=== PATIENT | male | born 1955 | race Caucasian/White ===

== ENCOUNTER 2016-10-25 19:08 | Inpatient (IN) | payer OTHER ==
[2016-10-25] MEDS ORDERED: DIPH/PERTUSS(ACELL)/TETANUS VAC/PF 0.5 ML SYR (>=10YO) IM ONE (19:45)
--- NOTE | 2016-10-25 19:45 | ER Document Report ---
ED Medical Screen (RME) - General Stated Complaint: POSSIBLE SPIDER BITE ON LEFT LEG Mode of Arrival: Ambulatory Information source: Patient Notes: 61 y/o F presents to ED c/o open wound, area of redness, and tenderness over the last week. Reports was placed on on course of Bactrim which he states has been taking but but symptoms area worsening. Denies fever. I have greeted and performed a rapid initial assessment of this patient. A comprehensive ED assessment and evaluation of the patient, analysis of test results and completion of the medical decision making process will be conducted by additional ED providers. - Related Data Allergies/Adverse Reactions: No Known Allergies Allergy (Unverified 10/25/16 19:40) Past Medical History - Immunizations Hx Diphtheria, Pertussis, Tetanus Vaccination: Yes Physical Exam - General General appearance: Appears well, Alert In distress: None - Cardiovascular Pulses: Normal: Dorsalis pedis Normal capillary refill: Yes
[2016-10-25 20:34] LABS: ABSOLUTE BASOPHILS # (AUTO) 0.1 10^3/uL (0.0-0.2); ABSOLUTE EOSINOPHILS # (AUTO) 0.2 10^3/uL (0.0-0.6); ABSOLUTE LYMPHOCYTES (AUTO) 2.3 10^3/uL (0.5-4.7); ABSOLUTE MONOCYTES (AUTO) 1.2 10^3/uL (0.1-1.4); ABSOLUTE NEUT (AUTO) 6.7 10^3/uL (1.7-8.2); BASOPHILS % (AUTO) 0.7 % (0-2); EOSINOPHILS % (AUTO) 1.5 % (0-6); HEMATOCRIT 45.9 % (37.9-51.0); HEMOGLOBIN 16.2 g/dL (13.5-17.0); HGB HCT DIFFERENCE 2.7; LYMPHOCYTES % (AUTO) 22.2 % (13-45); MEAN CORPUSCULAR HEMOGLOBIN 31.5 pg (27.0-33.4); MEAN CORPUSCULAR HGB CONC 35.2 g/dL (32.0-36.0); MEAN CORPUSCULAR VOLUME 90 fl (80-97); MONOCYTES % (AUTO) 11.5 % (3-13); RED BLOOD COUNT 5.12 10^6/uL (4.35-5.55); RED CELL DISTRIBUTION WIDTH 12.4 % (11.5-14.0); SEGMENTED NEUTROPHILS % (AUTO) 64.1 % (42-78); WHITE BLOOD COUNT 10.4 10^3/uL (4.0-10.5)
[2016-10-25 20:37] LABS: ALANINE AMINOTRANSFERASE 80 U/L (21-72); ALBUMIN 4.2 g/dL (3.5-5.0); ALKALINE PHOSPHATASE 225 U/L (38-126); ANION GAP 12 (5-19); ASPARTATE AMINO TRANSFERASE 49 U/L (17-59); BLOOD UREA NITROGEN 15 mg/dL (7-20); CARBON DIOXIDE 25 mmol/L (22-30); CHLORIDE 96 mmol/L (98-107); CREATININE RESULT 1.05 mg/dL (0.52-1.25); GLUCOSE 363 mg/dL (75-110); POTASSIUM 4.7 mmol/L (3.6-5.0); SODIUM 133.1 mmol/L (137-145); TOTAL PROTEIN 7.4 g/dL (6.3-8.2)
[2016-10-26] MEDS ORDERED: PIPERACILLIN/TAZOBACTAM 3.375 GM VIAL IV ONE (00:49)
[2016-10-26] MEDS ORDERED: NORMAL SALINE 1000 ML 1,000 ML IV ONE (00:49)
[2016-10-26] MEDS ORDERED: LIDOCAINE 1% INJ-PF (10 MG/ML) 30 ML SDV INJ ONE (00:49)
[2016-10-26] MEDS ORDERED: VANCOMYCIN HCL INJ 1000 MG VIAL IV ONE (00:49)
--- NOTE | 2016-10-26 00:50 | ER Document Report ---
ED Skin Rash/Insect Bite/Abscs - General Mode of Arrival: Ambulatory Information source: Patient TRAVEL OUTSIDE OF THE [place] IN LAST 30 DAYS: No - HPI Patient complains to provider of: Tender/swollen area, Spider bite Onset: Other - 5 days ago Skin Character: Other - see above Quality of rash: Painful <GALLO SUMMERS - Last Filed: 10/26/16 06:49> <CATA CONTRERAS - Last Filed: 10/26/16 08:07> - General Chief Complaint: Insect Bite Stated Complaint: POSSIBLE SPIDER BITE ON LEFT LEG Notes: 61 year old male presents to the ED complaining of an abscess to the left anterior leg that started 5 days ago. Patient states that he might have been bitten by a spider 7 days ago and could be the reason why the abscess is forming. Patient explains that the area surrounding the abscess started getting erythematous 2 days ago and worsened tonight. Patient saw a physician at [facility] 2 days ago who prescribed the patient with septra and mupirocin ointment. The abscess and surrounding erythema have increased in size since then. (GALLO SUMMERS ) - Related Data Allergies/Adverse Reactions: No Known Allergies Allergy (Unverified 10/25/16 19:40) Past Medical History - General Information source: Patient - Social History Smoking Status: Former Smoker Chew tobacco use (# tins/day): No Frequency of alcohol use: Social Drug Abuse: None Family History: Reviewed & Not Pertinent Patient has suicidal ideation: No Patient has homicidal ideation: No - Medical History Medical History: Negative Renal/ Medical History: Denies: Hx Peritoneal Dialysis Surgical Hx: Negative - Immunizations Hx Diphtheria, Pertussis, Tetanus Vaccination: Yes <GALLO SUMMERS - Last Filed: 10/26/16 06:49> Review of Systems - Review of Systems Constitutional: No symptoms reported EENT: No symptoms reported Cardiovascular: No symptoms reported Respiratory: No symptoms reported Gastrointestinal: No symptoms reported Genitourinary: No symptoms reported Male Genitourinary: No symptoms reported Musculoskeletal: No symptoms reported Skin: See HPI, Other - abscess and surrounding erythema to the left anterior leg Hematologic/Lymphatic: No symptoms reported Neurological/Psychological: No symptoms reported -: Yes All other systems reviewed and negative <GALLO SUMMERS - Last Filed: 10/26/16 06:49> Physical Exam - General General appearance: Alert In distress: None - HEENT Head: Normocephalic, Atraumatic Eyes: Normal Extraocular movements intact: Yes Pupils: PERRL Mucous membranes: Dry - Respiratory Respiratory status: No respiratory distress Breath sounds: Normal - Cardiovascular Rhythm: Regular Heart sounds: Normal auscultation - Abdominal Inspection: Normal - Back Back: Normal - Extremities General upper extremity: Normal inspection, Normal ROM General lower extremity: Normal ROM. No: Normal inspection - see skin exam below - Neurological Neuro grossly intact: Yes Cognition: Normal Orientation: AAOx4 Natalia Coma Scale Eye Opening: Spontaneous Natalia Coma Scale Verbal: Oriented Natalia Coma Scale Motor: Obeys Commands Natalia Coma Scale Total: 15 Speech: Normal - Psychological Associated symptoms: Normal affect, Normal mood - Skin Skin Temperature: Warm Skin Moisture: Dry Skin Color: Normal Skin irregularity: Abscess - warm to touch, Erythema - [id number] surrounding erythema Location of irregularity: Extremities - left lower extremity <GALLO SUMMERS - Last Filed: 10/26/16 06:49> Course - Laboratory Result Diagrams: 10/25/16 20:00 10/25/16 20:00 <GALLO SUMMERS - Last Filed: 10/26/16 06:49> - Laboratory Result Diagrams: 10/25/16 20:00 10/25/16 20:00 <CATA CONTRERAS - Last Filed: 10/26/16 08:07> - Re-evaluation Re-evalutation: Patient is a 61-year-old male who states he has no past medical history who presents with cellulitis and abscess to his left lower extremity. Patient was treated with outpatient Bactrim and symptoms worsen. Abscess was drained in the emergency department with packing placed. Patient's started on Zosyn and vancomycin for worsening cellulitis that is failing outpatient treatment. Of note, the patient does appear to have new onset diabetes. He has been given fluids in the emergency department. Discussed with the hospitalist service and will be referred for admission. Patient agrees with plan. Stable time of admission. (CATA CONTRERAS) - Vital Signs Vital signs: Temp Pulse Resp BP Pulse Ox 98.2 F 91 18 128/80 H 97 10/26/16 07:38 10/26/16 07:38 10/26/16 07:38 10/26/16 07:38 10/26/16 07:38 (GALLO SUMMERS) (CATA CONTRERAS) - Laboratory Laboratory results interpreted by me: 10/25/16 10/26/16 10/26/16 20:00 00:43 02:17 Sodium 133.1 L Chloride 96 L Glucose 363 H POC Glucose 345 H 282 H ALT 80 H Alkaline Phosphatase 225 H (GALLO SUMMERS) (CATA CONTRERAS) Procedures - Incision and Drainage Left Leg Type: Simple Anesthetic type: 1% Lidocaine Blade size: 11 I&D procedure: Betadine prep applied, Iodoform packing placed Incision Method: Incision made by scalpel <CATA CONTRERAS - Last Filed: 10/26/16 08:07> Discharge <GALLO SUMMERS - Last Filed: 10/26/16 06:49> - Discharge Admitting Provider: [facility] Unit Admitted: Medical Floor <CATA CONTRERAS - Last Filed: 10/26/16 08:07> - Discharge Clinical Impression: Abscess Cellulitis Qualifiers: Site of cellulitis: extremity Site of cellulitis of extremity: lower extremity Laterality: left Qualified Code(s): L03.116 - Cellulitis of left lower limb Diabetes Qualifiers: Diabetes mellitus type: type 2 Diabetes mellitus complication status: with skin complications Condition: Stable Disposition: ADMITTED INPATIENT Scribe Attestation: 10/26/16 08:06 I personally performed the services described in the documentation, reviewed and edited the documentation which was dictated to the scribe in my presence, and it accurately records my words and actions. (CATA CONTRERAS) Scribe Documentation - Scribe Written by Scribe:: Sivan Miller, 10/26/2016 0340 acting as scribe for :: Alicia <GALLO SUMMERS - Last Filed: 10/26/16 06:49>
[2016-10-26] MEDS ORDERED: ACETAMINOPHEN 325 MG TABLET PO PRN (02:23)
[2016-10-26] MEDS ORDERED: OXYCODONE-ACETAMINOPHEN 5-325 MG TABLET PO PRN (02:23)
[2016-10-26] MEDS ORDERED: MAGNESIUM HYDROXIDE SUSP 30 ML UDCUP PO PRN (02:23)
[2016-10-26] MEDS ORDERED: DEXTROSE 40% GEL 15 GM TUBE PO PRN ×2 (02:23)
[2016-10-26] MEDS ORDERED: DEXTROSE 50%-WATER 25 GM/50 ML DISP.SYRIN IV PRN ×2 (02:23)
[2016-10-26] MEDS ORDERED: GLUCAGON,HUMAN RECOMB 1 MG INJ IM PRN (02:23)
[2016-10-26] MEDS ORDERED: ONDANSETRON HCL INJ/PF 4 MG/2 ML SDV IV PRN (02:23)
[2016-10-26] MEDS ORDERED: KETOROLAC TROMETHAMINE INJ/PF 30 MG/1 ML SDV IV PRN (02:27)
[2016-10-26] MEDS ORDERED: VANCOMYCIN HCL 0 MG in DEXTROSE 5%-WATER 250 ML IV NR (02:30)
[2016-10-26] MEDS ORDERED: NORMAL SALINE 1000 ML 1,000 ML IV SCH (02:30)
[2016-10-26] MEDS ORDERED: AMPICILLIN SODIUM/SULBACTAM NA 3 GM in NORMAL SALINE 100 ML IV SCH (06:00)
--- NOTE | 2016-10-26 06:03 | PDOC H&P ---
History of Present Illness Admission Date/PCP: 10/26/16 02:24 Patient complains of: Left leg pain and swelling History of Present Illness: NATALEE PETERS is a 61 year old male without significant past medical history who' d been in his usual state of health until approximately a week ago noting a small pruritic area of his left leg after scratching it several times the area grew in size and pain prompting him to seek evaluation at urgent care where he was prescribed Bactrim without a loading dose he's taken 3 days without improvement. In the emergency room his found to have a 2 x 2 centimeter abscess 1 cm deep requiring IND and iodoform packing is placed on vancomycin and Zosyn empirically. He is also found to have a blood sugar greater than 300 and referred to the hospitalist for admission. Patient denies previous episode and otherwise feels well Past Medical History Cardiac Medical History: Reports: None Pulmonary Medical History: Reports: None Endocrine Medical History: Reports: None Renal/ Medical History: Reports: None Past Surgical History Past Surgical History: Reports: None Social History Information Source: Patient Lives with: Family Smoking Status: Former Smoker Frequency of Alcohol Use: Rare Hx Recreational Drug Use: No Drugs: None - Advance Directive Resuscitation Status: Full Code Family History Family History: Other - Mother with CK D Parental Family History Reviewed: Yes Children Family History Reviewed: Yes Sibling(s) Family History Reviewed.: Yes Medication/Allergy Home Medications: No Home Medications 10/26/16 Allergies/Adverse Reactions: No Known Allergies Allergy (Unverified 10/25/16 19:40) Review of Systems Constitutional: ABSENT: chills, fever(s), headache(s), weight gain, weight loss Eyes: ABSENT: visual disturbances Ears: ABSENT: hearing changes Cardiovascular: ABSENT: chest pain, dyspnea on exertion, edema, orthropnea, palpitations Respiratory: ABSENT: cough, hemoptysis Gastrointestinal: ABSENT: abdominal pain, constipation, diarrhea, hematemesis, hematochezia, nausea, vomiting Genitourinary: ABSENT: dysuria, hematuria Musculoskeletal: ABSENT: joint swelling Integumentary: ABSENT: rash, wounds Neurological: ABSENT: abnormal gait, abnormal speech, confusion, dizziness, focal weakness, syncope Psychiatric: ABSENT: anxiety, depression, homidical ideation, suicidal ideation Endocrine: PRESENT: polydipsia, polyuria. ABSENT: cold intolerance, heat intolerance Hematologic/Lymphatic: ABSENT: easy bleeding, easy bruising Physical Exam Vital Signs: Temp Pulse Resp BP Pulse Ox 98.2 F 107 H 20 131/80 H 95 10/25/16 19:45 10/25/16 19:45 10/25/16 19:45 10/25/16 19:45 10/25/16 19:45 General appearance: PRESENT: no acute distress, well-developed, well-nourished Head exam: PRESENT: atraumatic, normocephalic Eye exam: PRESENT: conjunctiva pink, EOMI, PERRLA. ABSENT: scleral icterus Ear exam: PRESENT: normal external ear exam Mouth exam: PRESENT: moist, tongue midline Neck exam: ABSENT: carotid bruit, JVD, lymphadenopathy, thyromegaly Respiratory exam: PRESENT: clear to auscultation lena. ABSENT: rales, rhonchi, wheezes Cardiovascular exam: PRESENT: RRR. ABSENT: diastolic murmur, rubs, systolic murmur Pulses: PRESENT: normal dorsalis pedis pul Vascular exam: PRESENT: normal capillary refill GI/Abdominal exam: PRESENT: normal bowel sounds, soft. ABSENT: distended, guarding, mass, organolmegaly, rebound, tenderness Rectal exam: PRESENT: deferred Extremities exam: PRESENT: full ROM. ABSENT: calf tenderness, clubbing, pedal edema Neurological exam: PRESENT: alert, awake, oriented to person, oriented to place , oriented to time, oriented to situation, CN II-XII grossly intact. ABSENT: motor sensory deficit Psychiatric exam: PRESENT: appropriate affect, normal mood. ABSENT: homicidal ideation, suicidal ideation Skin exam: PRESENT: dry, erythema, warm, other - Left leg with a 2 x 2 by 1 cm deep centimeter incision with 10 cm of surrounding erythema no lymphadenopathy. ABSENT: cyanosis, rash Assessment & Plan - Diagnosis (1) Abscess Is this a current diagnosis for this admission?: YesPlan: Complicated by diabetes, failure of outpatient Bactrim and status post IND by the emergency room provider. Continue empiric antibiotics with MRSA coverage following CBC and wound culture (2) Cellulitis Is this a current diagnosis for this admission?: YesPlan: Please see #1 with symptomatic management (3) Diabetes Is this a current diagnosis for this admission?: YesPlan: Newly diagnosed A1c pending diabetic education, metformin 500 Q before meals twice a day and Humalog sliding scale ordered - Time Time Spent: 30 to 50 Minutes
[2016-10-26] MEDS ORDERED: PIPERACILLIN/TAZOBACTAM 4.5 GM VIAL IV ONE (07:00)
[2016-10-26] MEDS: HEPARIN SOD (PORCINE) 5,000 UNIT/ML 1 ML SYRINGE SUBCUT SCH ×3 (07:07→23:13)
[2016-10-26] MEDS: PIPERACILLIN SODIUM/TAZOBACTAM 4.5 GM in NORMAL SALINE 100 ML IV SCH ×3 (07:08→23:07)
[2016-10-26] MEDS: METFORMIN HCL 500 MG TABLET PO SCH ×2 (10:10→15:43)
[2016-10-26] MEDS: DOCUSATE SODIUM 100 MG CAPSULE PO SCH ×2 (10:11→23:07)
[2016-10-26] MEDS: INSULIN LISPRO 100 UNIT/ML 3 ML VIAL SUBCUT PRN ×4 (10:12→23:23)
[2016-10-26] MEDS ORDERED: 1/2 NORMAL SALINE 1,000 ML IV ONE (17:51)
[2016-10-26] MEDS ORDERED: VANCOMYCIN HCL 1,250 MG in DEXTROSE 5%-WATER 250 ML IV SCH (18:00)
--- NOTE | 2016-10-26 19:02 | PDOC PROGRESS REPORT ---
Subjective Progress Note for:: 10/26/16 Subjective:: Reason for visit: Follow-up of abscess and cellulitis Hospital course: Per H&P "NATALEE PETERS is a 61 year old male without significant past medical history who'd been in his usual state of health until approximately a week ago noting a small pruritic area of his left leg after scratching it several times the area grew in size and pain prompting him to seek evaluation at urgent care where he was prescribed Bactrim without a loading dose he's taken 3 days without improvement. In the emergency room his found to have a 2 x 2 centimeter abscess 1 cm deep requiring IND and iodoform packing is placed on vancomycin and Zosyn empirically. He is also found to have a blood sugar greater than 300 and referred to the hospitalist for admission. Patient denies previous episode and otherwise feels well." Subjective:Patient continues to spike fevers to 102.7 and continues to feel terrible. He states persistent pain in the leg from the incision and drainage. He denies chest pain, palpitations, vomiting, diarrhea, swollen glands, sore throat or difficulty swallowing. He does complain of nausea. ROS: per HPI plus a total of 10 systems reviewed, pertinent positives and negatives noted above, remaining systems negative. Physical Exam Vital Signs: Temp Pulse Resp BP Pulse Ox 102.7 F H 124 H 16 131/77 H 95 10/26/16 16:21 10/26/16 16:21 10/26/16 16:21 10/26/16 16:21 10/26/16 16:21 Intake & Output 10/25/16 10/26/16 10/27/16 06:59 06:59 06:59 Intake Total 440 Balance 440 Weight 94.7 kg 94.7 kg EXAM GENERAL: NAD; well developed, well nourished; obese; alert and oriented to person, place, time, situation HEENT: normocephalic, atraumatic; no conjunctival injection, no scleral icterus ; oral mucosa dry; RESPIRATORY: no accessory muscle use, no increased WOB, good air entry bilaterally; no wheezes, rales, rhonchi; no inspiratory crackles CARDIO: no JVD; RRR; no systolic murmur; tachycardia but regular GI: soft, obese; nondistended; normal bowel sounds; no hepato spleno megaly; no rebound, rigidity, guarding; nontender VASCULAR: no carotid bruit; no abdominal bruit; no pallor; 2+ radial, DP pulse ; normal capillary refill EXTREMITIES: no calf tender; no palpable cords in calf; no clubbing, cyanosis ; left leg with 2+ pedal edema PSYCH: normal affect, normal mood SKIN: warm; moist; no petechiae; no telengectasias; no jaundice; medial aspect of the left pre-tibia shows a raised 2 cm abscess with iodoform packing in place and surrounding cellulitis beginning to recede from the demarcation placed by the emergency room physician this morning, he has palpable nontender small lymph nodes in the left inguinal area Results Laboratory Results: Labs reviewed, no leukocytosis, electrolyte relatively unremarkable set from the hyperglycemia, hemoglobin A1c is 11.2 Assessment & Plan - Diagnosis (1) Abscess Is this a current diagnosis for this admission?: YesPlan: Continue Zosyn and vancomycin, if no improvement by morning we'll get MRI of the lower extremity to delineate the depths of the infection. (2) Cellulitis Qualifiers: Site of cellulitis: extremity Site of cellulitis of extremity: lower extremity Laterality: left Qualified Code(s): L03.116 - Cellulitis of left lower limb Is this a current diagnosis for this admission?: YesPlan: As above (3) Diabetes Qualifiers: Diabetes mellitus type: type 2 Diabetes mellitus complication status: with skin complications Is this a current diagnosis for this admission?: YesPlan: New onset. Poorly controlled. Continue sliding scale insulin and diabetic education while here. Will need aggressive diet and lifestyle modifications and outpatient oral regimen to begin with. - Time Time Spent with patient: 25-34 minutes Anticipated discharge: Home Within: within 48 hours
[2016-10-26] MEDS: VANCOMYCIN HCL 1,250 MG in DEXTROSE 5%-WATER 250 ML IV SCH (23:13)
[2016-10-26] MEDS: ZOLPIDEM TARTRATE 5 MG TABLET PO PRN (23:23)
[2016-10-27] MEDS: PIPERACILLIN SODIUM/TAZOBACTAM 4.5 GM in NORMAL SALINE 100 ML IV SCH ×2 (01:08→06:37)
[2016-10-27 05:04] LABS: ABSOLUTE LYMPHOCYTES (AUTO) 0.9 10^3/uL (0.5-4.7); ABSOLUTE MONOCYTES (AUTO) 0.6 10^3/uL (0.1-1.4); ABSOLUTE NEUT (AUTO) 3.5 10^3/uL (1.7-8.2); BASOPHILS % (AUTO) 0.8 % (0-2); EOSINOPHILS % (AUTO) 0.1 % (0-6); HEMATOCRIT 43.9 % (37.9-51.0); HEMOGLOBIN 15.4 g/dL (13.5-17.0); HGB HCT DIFFERENCE 2.3; LYMPHOCYTES % (AUTO) 17.3 % (13-45); MEAN CORPUSCULAR HEMOGLOBIN 30.9 pg (27.0-33.4); MEAN CORPUSCULAR HGB CONC 35.1 g/dL (32.0-36.0); MEAN CORPUSCULAR VOLUME 88 fl (80-97); MONOCYTES % (AUTO) 12.5 % (3-13); RED BLOOD COUNT 4.98 10^6/uL (4.35-5.55); RED CELL DISTRIBUTION WIDTH 12.3 % (11.5-14.0); SEGMENTED NEUTROPHILS % (AUTO) 69.3 % (42-78); WHITE BLOOD COUNT 5.1 10^3/uL (4.0-10.5)
[2016-10-27 05:20] LABS: ANION GAP 10 (5-19); BLOOD UREA NITROGEN 11 mg/dL (7-20); CALCIUM 9.4 mg/dL (8.4-10.2); CARBON DIOXIDE 23 mmol/L (22-30); CHLORIDE 99 mmol/L (98-107); CREATININE RESULT 0.81 mg/dL (0.52-1.25); GLUCOSE 231 mg/dL (75-110); SODIUM 131.9 mmol/L (137-145)
[2016-10-27 05:33] LABS: POTASSIUM 4.1 mmol/L (3.6-5.0)
[2016-10-27] MEDS: HEPARIN SOD (PORCINE) 5,000 UNIT/ML 1 ML SYRINGE SUBCUT SCH ×3 (06:37→22:33)
[2016-10-27] MEDS: INSULIN LISPRO 100 UNIT/ML 3 ML VIAL SUBCUT PRN ×4 (08:40→22:33)
[2016-10-27] MEDS: METFORMIN HCL 500 MG TABLET PO SCH ×2 (08:40→16:01)
[2016-10-27] MEDS: DOCUSATE SODIUM 100 MG CAPSULE PO SCH ×2 (11:18→18:05)
[2016-10-27] MEDS: VANCOMYCIN HCL 1,250 MG in DEXTROSE 5%-WATER 250 ML IV SCH ×2 (11:47→22:33)
--- NOTE | 2016-10-27 15:00 | PDOC PROGRESS REPORT ---
Subjective Progress Note for:: 10/27/16 Subjective:: Reason for visit: Follow-up of abscess and cellulitis Hospital course: Per H&P "NATALEE PETERS is a 61 year old male without significant past medical history who'd been in his usual state of health until approximately a week ago noting a small pruritic area of his left leg after scratching it several times the area grew in size and pain prompting him to seek evaluation at urgent care where he was prescribed Bactrim without a loading dose he's taken 3 days without improvement. In the emergency room his found to have a 2 x 2 centimeter abscess 1 cm deep requiring IND and iodoform packing is placed on vancomycin and Zosyn empirically. He is also found to have a blood sugar greater than 300 and referred to the hospitalist for admission. Patient denies previous episode and otherwise feels well." Patient continued to spike fevers to 102.7 making him feel terrible until finally breaking last night with overall improvement in his condition. initial cultures show Group B Strep though susc's still pending. Subjective:He states persistent pain in the leg from the incision and drainage but improved from yesterday. He denies chest pain, palpitations, vomiting, diarrhea, swollen glands, sore throat or difficulty swallowing. He does complain of nausea. ROS: per HPI plus a total of 10 systems reviewed, pertinent positives and negatives noted above, remaining systems negative. Physical Exam Vital Signs: Temp Pulse Resp BP Pulse Ox 98.5 F 101 H 14 113/83 100 10/27/16 11:53 10/27/16 11:53 10/27/16 11:53 10/27/16 11:53 10/27/16 11:53 Intake & Output 10/26/16 10/27/16 10/28/16 06:59 06:59 06:59 Intake Total 1040 Output Total 450 Balance 590 Weight 94.7 kg 94.7 kg EXAM GENERAL: NAD; well developed, well nourished; obese; alert and oriented to person, place, time, situation HEENT: normocephalic, atraumatic; no conjunctival injection, no scleral icterus ; oral mucosa moist RESPIRATORY: no accessory muscle use, no increased WOB, good air entry bilaterally; no wheezes, rales, rhonchi; no inspiratory crackles CARDIO: no JVD; RRR; no systolic murmur; tachycardia but regular GI: soft, obese; nondistended; normal bowel sounds; no rebound, rigidity, guarding; nontender VASCULAR: no pallor; 2+ radial, DP pulse; normal capillary refill EXTREMITIES: no palpable cords in calf; no clubbing, cyanosis; left leg with 2+ pedal edema PSYCH: normal affect, normal mood SKIN: warm; moist; no petechiae; no telengectasias; no jaundice; medial aspect of the left pre-tibia shows a raised 2 cm abscess with iodoform packing in place and surrounding cellulitis continuing to recede from the demarcation lines placed by the emergency room physician; he no longer has palpable nontender small lymph nodes in the left inguinal area General appearance: PRESENT: no acute distress Results Laboratory Results: 10/27/16 04:29 10/27/16 04:29 10/27/16 10/27/16 04:29 04:29 WBC 5.1 RBC 4.98 Hgb 15.4 Hct 43.9 MCV 88 MCH 30.9 MCHC 35.1 RDW 12.3 Plt Count 214 Seg Neutrophils % 69.3 Lymphocytes % 17.3 Monocytes % 12.5 Eosinophils % 0.1 Basophils % 0.8 Absolute Neutrophils 3.5 Absolute Lymphocytes 0.9 Absolute Monocytes 0.6 Absolute Eosinophils 0.0 Absolute Basophils 0.0 Sodium 131.9 L Potassium 4.1 Chloride 99 Carbon Dioxide 23 Anion Gap 10 BUN 11 Creatinine 0.81 Est GFR ( Amer) > 60 Est GFR (Non-Af Amer) > 60 Glucose 231 H Calcium 9.4 Labs reviewed, CBC remains reassuring Assessment & Plan - Diagnosis (1) Abscess Is this a current diagnosis for this admission?: YesPlan: Overall improved. Change Zosyn to Rocephin and continue vancomycin until final susceptibilities available. (2) Cellulitis Qualifiers: Site of cellulitis: extremity Site of cellulitis of extremity: lower extremity Laterality: left Qualified Code(s): L03.116 - Cellulitis of left lower limb Is this a current diagnosis for this admission?: YesPlan: As above (3) Diabetes Qualifiers: Diabetes mellitus type: type 2 Diabetes mellitus complication status: with skin complications Is this a current diagnosis for this admission?: YesPlan: New onset. Poorly controlled. Continue sliding scale insulin and diabetic education while here. Will need aggressive diet and lifestyle modifications and outpatient oral regimen to begin with. - Time Time Spent with patient: 25-34 minutes Medications reviewed and adjusted accordingly: Yes Anticipated discharge: Home Within: within 24 hours
[2016-10-27] MEDS ORDERED: CEFTRIAXONE 1 GM/D5W RTU 1 GM/50 ML RTUPB IV SCH (18:00)
[2016-10-27] MEDS: ZOLPIDEM TARTRATE 5 MG TABLET PO PRN (22:33)
[2016-10-28] MEDS: HEPARIN SOD (PORCINE) 5,000 UNIT/ML 1 ML SYRINGE SUBCUT SCH (05:29)
[2016-10-28 07:12] LABS: ABSOLUTE BASOPHILS # (AUTO) 0.1 10^3/uL (0.0-0.2); ABSOLUTE EOSINOPHILS # (AUTO) 0.2 10^3/uL (0.0-0.6); ABSOLUTE LYMPHOCYTES (AUTO) 1.3 10^3/uL (0.5-4.7); ABSOLUTE MONOCYTES (AUTO) 1.1 10^3/uL (0.1-1.4); ABSOLUTE NEUT (AUTO) 3.5 10^3/uL (1.7-8.2); BASOPHILS % (AUTO) 1.1 % (0-2); EOSINOPHILS % (AUTO) 2.6 % (0-6); HEMATOCRIT 45.6 % (37.9-51.0); HEMOGLOBIN 15.9 g/dL (13.5-17.0); HGB HCT DIFFERENCE 2.1; LYMPHOCYTES % (AUTO) 21.3 % (13-45); MEAN CORPUSCULAR HEMOGLOBIN 30.9 pg (27.0-33.4); MEAN CORPUSCULAR HGB CONC 34.9 g/dL (32.0-36.0); MEAN CORPUSCULAR VOLUME 89 fl (80-97); MONOCYTES % (AUTO) 17.4 % (3-13); RED BLOOD COUNT 5.15 10^6/uL (4.35-5.55); RED CELL DISTRIBUTION WIDTH 12.5 % (11.5-14.0); SEGMENTED NEUTROPHILS % (AUTO) 57.6 % (42-78)
[2016-10-28] MEDS: METFORMIN HCL 500 MG TABLET PO SCH (09:35)
[2016-10-28] MEDS: DOCUSATE SODIUM 100 MG CAPSULE PO SCH (09:35)
[2016-10-28 10:25] LABS: CREATININE RESULT 0.81 mg/dL (0.52-1.25)
[2016-10-28] MEDS: VANCOMYCIN HCL 1,250 MG in DEXTROSE 5%-WATER 250 ML IV SCH (11:01)
[2016-10-28] MEDS: INSULIN LISPRO 100 UNIT/ML 3 ML VIAL SUBCUT PRN (11:58)
[2016-10-28 15:40] VITALS: BP 124/69
--- NOTE | 2016-10-30 16:23 | PDOC DISCHARGE SUMMARY ---
General - Admit/Disc Date/PCP Admission Date/Primary Care Provider: 10/26/16 02:24 Discharge Date: 10/28/16 - Discharge Diagnosis (1) Abscess Is this a current diagnosis for this admission?: YesSummary: Status post incision and drainage in the emergency department, wound culture showed group B strep. He responded to IV Rocephin and will be sent home on a course of clindamycin for 10 days with outpatient follow-up. He was instructed on wound care including wet-to-dry dressing using a 50-50 mix of peroxide and sterile water for the next 3 days and then just dry dressings daily until closed. (2) Cellulitis Is this a current diagnosis for this admission?: YesSummary: Related to the above, resolved. (3) Diabetes Is this a current diagnosis for this admission?: YesSummary: This is a new diagnosis for the patient with a hemoglobin A1c of greater than 11. He was given diabetic education throughout his hospitalization and sent home with a new glucometer with instructions to check his blood sugars fasting in the morning and a random postprandial. He is started on metformin twice a day and He is to report to his primary care physician for further titration. It may be necessary for him to receive insulin therapy for a short course but he would prefer lifestyle and diet and exercise changes with the use of the metformin before doing so. Signs and symptoms of hypo-and hyperglycemia were described to the patient, he and his both state clear understanding and will report to the emergency department with signs of either. - Additional Information Resuscitation Status: Full Code Discharge Diet: Diabetic Discharge Activity: Activity As Tolerated, Balance Activity w/Rest Home Medications: Calcium Carbonate/Vitamin D3 [Calcium 500-Vit D3 400 Tablet] 1 each PO DAILY Cyanocobalamin (Vitamin B-12) [Vitamin B-12 SL 2500 mcg Tablet] 5,000 mcg SL DAILY 10/26/16 Multivitamin [Multivitamins] 1 each PO DAILY 10/26/16 Acetaminophen [Tylenol 325 mg Tablet] 325 mg PO Q4HP PRN tablet 10/28/16 Clindamycin HCl [Cleocin HCl] 300 mg PO QID #40 capsule 10/28/16 Docusate Sodium [Colace 100 mg Capsule] 100 mg PO BID capsule 10/28/16 Metformin HCl [Glucophage] 850 mg PO BID #60 tablet 10/28/16 History of Present Illness Patient complains of: Pain and swelling in the leg History of Present Illness: NATALEE PETERS is a 61 year old male without significant past medical history who' d been in his usual state of health until approximately a week ago noting a small pruritic area of his left leg after scratching it several times the area grew in size and pain prompting him to seek evaluation at urgent care where he was prescribed Bactrim without a loading dose he's taken 3 days without improvement. Hospital Course Hospital Course: In the emergency room his found to have a 2 x 2 centimeter abscess 1 cm deep requiring IND and iodoform packing is placed on vancomycin and Zosyn empirically. He is also found to have a blood sugar greater than 300 and referred to the hospitalist for admission. Patient denies previous episode and otherwise feels well." Patient continued to spike fevers to 102.7 making him feel terrible until finally breaking last night with overall improvement in his condition. initial cultures show Group B Strep which responded nicely to the Rocephin therapy and he'll be transitioned over to clindamycin and discharged home. Dressing changes should be performed on a daily basis as noted above. He is to follow- up with his primary care provider in one week. Physical Exam Vital Signs: Temp Pulse Resp BP Pulse Ox 98.0 F 95 20 124/69 99 10/28/16 15:36 10/28/16 15:36 10/28/16 15:36 10/28/16 15:36 10/28/16 15:36 EXAM GENERAL: NAD; well developed, well nourished; obese; alert and oriented to person, place, time, situation HEENT: normocephalic, atraumatic; no conjunctival injection, no scleral icterus ; oral mucosa moist RESPIRATORY: no accessory muscle use, no increased WOB, good air entry bilaterally; no wheezes, rales, rhonchi; no inspiratory crackles CARDIO: no JVD; RRR; no systolic murmur; tachycardia but regular GI: soft, obese; nondistended; normal bowel sounds; no rebound, rigidity, guarding; nontender VASCULAR: no pallor; 2+ radial, DP pulse; normal capillary refill EXTREMITIES: no palpable cords in calf; no clubbing, cyanosis; left leg with trace pedal edema PSYCH: normal affect, normal mood SKIN: warm; moist; no petechiae; no telengectasias; no jaundice; medial aspect of the left pre-tibia shows a raised 2 cm abscess with iodoform packing in place and surrounding cellulitis continuing to recede from the demarcation lines placed by the emergency room physician; he no longer has palpable nontender small lymph nodes in the left inguinal area General appearance: PRESENT: no acute distress Results Laboratory Results: 10/28/16 06:30 10/28/16 09:30 10/26/16 03:30 Leg - Left Side Abscess Gram Stain - Final 10/26/16 03:30 Leg - Left Side Abscess Wound Culture - Final Group B Beta Streptococcus No Anaerobic Organisms Qualifiers PATEINT BEING DISCHARGED WITH ANY OF THE FOLLOWING DIAGNOSIS?: No VTE patient discharged on overlapping Therapy?: Yes Plan Discharge Plan: Discharge home with a 10 day course of clindamycin and outpatient wound care with instructions to follow-up with PCP of his choice for additional wound care. Time Spent: Greater than 30 Minutes
== END 2016-10-28 16:26 | disposition home or self-care (01) | DRG 638 ==
LOC: ER 19:08 → EH 10-26 02:24 → 5 10-26 08:10
PROVIDERS: ADMIT Internal Medicine; ATTEND Internal Medicine
PROC: 0H9LXZZ Drainage of Left Lower Leg Skin, External Approach (ICD-10-PCS; principal; 2016-10-26)
DX: E11.628 Type 2 diabetes mellitus with other skin complications (principal); L02.416 Cutaneous abscess of left lower limb; L03.116 Cellulitis of left lower limb; B95.1 Streptococcus, group B, as the cause of diseases classified elsewhere; Z87.891 Personal history of nicotine dependence; Z84.1 Family history of disorders of kidney and ureter; Z79.84 Long term (current) use of oral hypoglycemic drugs
CPT/HCPCS: 36415; 80048; 80053; 80202; 82565; 82962; 83036; 85025; 87040; 87070; 87075; 87077; 87205; 90471; 90715; 96361; 96365; 99284; J0696; J1644; J1815; J2543; J3370; J3490; J7030; J7060

== ENCOUNTER 2016-12-06 14:45 | Inpatient (IN) | payer OTHER ==
[2016-12-06] MEDS ORDERED: DEXTROSE 40% GEL 15 GM TUBE PO PRN (15:45)
[2016-12-06] MEDS ORDERED: GLUCAGON,HUMAN RECOMB 1 MG INJ IM PRN (15:45)
[2016-12-06] MEDS ORDERED: DEXTROSE 40% GEL 15 GM TUBE X 2 PO PRN (15:45)
[2016-12-06] MEDS ORDERED: DEXTROSE 50%-WATER SYRINGE 12.5 GM/25 ML DOSE IV PRN (15:45)
[2016-12-06] MEDS ORDERED: DEXTROSE 50%-WATER SYRINGE 25 GM/50 ML DOSE IV PRN (15:45)
[2016-12-06] MEDS: NORMAL SALINE 1000 ML 1,000 ML IV PRN (16:05)
[2016-12-06 16:25] LABS: ABSOLUTE LYMPHOCYTES (AUTO) 1.3 10^3/uL (0.5-4.7); ABSOLUTE MONOCYTES (AUTO) 2.2 10^3/uL (0.1-1.4); ABSOLUTE NEUT (AUTO) 11.9 10^3/uL (1.7-8.2); BASOPHILS % (AUTO) 0.3 % (0-2); EOSINOPHILS % (AUTO) 0.3 % (0-6); HEMATOCRIT 44.8 % (37.9-51.0); HGB HCT DIFFERENCE 3.2; LYMPHOCYTES % (AUTO) 8.7 % (13-45); MEAN CORPUSCULAR HEMOGLOBIN 31.1 pg (27.0-33.4); MEAN CORPUSCULAR HGB CONC 35.7 g/dL (32.0-36.0); MEAN CORPUSCULAR VOLUME 87 fl (80-97); MONOCYTES % (AUTO) 13.9 % (3-13); RED BLOOD COUNT 5.14 10^6/uL (4.35-5.55); RED CELL DISTRIBUTION WIDTH 12.5 % (11.5-14.0); SEGMENTED NEUTROPHILS % (AUTO) 76.8 % (42-78); WHITE BLOOD COUNT 15.5 10^3/uL (4.0-10.5)
[2016-12-06 16:33] LABS: ALANINE AMINOTRANSFERASE 54 U/L (21-72); ALBUMIN 4.1 g/dL (3.5-5.0); ALKALINE PHOSPHATASE 163 U/L (38-126); ANION GAP 16 (5-19); ASPARTATE AMINO TRANSFERASE 32 U/L (17-59); BILIRUBIN,DIRECT 0.4 mg/dL (0.0-0.4); BILIRUBIN,TOTAL 1.1 mg/dL (0.2-1.3); BLOOD UREA NITROGEN 13 mg/dL (7-20); CALCIUM 9.8 mg/dL (8.4-10.2); CARBON DIOXIDE 24 mmol/L (22-30); CHLORIDE 100 mmol/L (98-107); CREATININE RESULT 0.94 mg/dL (0.52-1.25); GLUCOSE 115 mg/dL (75-110); SODIUM 140.2 mmol/L (137-145); TOTAL PROTEIN 7.5 g/dL (6.3-8.2)
[2016-12-06] MEDS: METRONIDAZOLE 500 MG/NS RTU 100 ML IV SCH ×2 (17:08→23:14)
[2016-12-06] MEDS ORDERED: ENOXAPARIN SODIUM INJ 40 MG/0.4 ML DISP.SYRIN SUBCUT ONE (18:00)
--- NOTE | 2016-12-06 18:51 | PDOC H&P ---
History of Present Illness Admission Date/PCP: 12/06/16 14:45 ROSSY FINK MD Patient complains of: Diarrhea, Nausea, Vomiting History of Present Illness: NATALEE PETERS is a 61 year old male Past Medical History Cardiac Medical History: Reports: Hyperlipidema Pulmonary Medical History: Reports: None EENT Medical History: Reports: Eyes - Legally blind in right eye Neurological Medical History: Reports: None Endocrine Medical History: Reports: Diabetes Mellitus Type 2 Renal/ Medical History: Reports: None Malignancy Medical History: Reports: None GI Medical History: Reports: Diverticulitis, Gastroesophageal Reflux Disease Musculoskeltal Medical History: Reports: Arthritis Skin Medical History: Reports: None Psychiatric Medical History: Denies: Depression Traumatic Medical History: Reports: None Hematology: Reports: None Infectious Medical History: Reports: None Past Surgical History Past Surgical History: Reports: None Social History Information Source: Patient Lives with: Spouse/Significant other Smoking Status: Former Smoker Number of Years Smokin Last Time Smoked: 02/05/2013 Frequency of Alcohol Use: Rare Hx Recreational Drug Use: No Drugs: None Hx Prescription Drug Abuse: No - Advance Directive Resuscitation Status: Full Code Family History Family History: Reviewed & Not Pertinent Parental Family History Reviewed: Yes Children Family History Reviewed: Yes Sibling(s) Family History Reviewed.: Yes Medication/Allergy Home Medications: Calcium Carbonate/Vitamin D3 [Calcium 500-Vit D3 400 Tablet] 1 each PO DAILY Cyanocobalamin (Vitamin B-12) [Vitamin B-12 SL 2500 mcg Tablet] 5,000 mcg SL DAILY 10/26/16 Multivitamin [Multivitamins] 1 each PO DAILY 10/26/16 Acetaminophen [Tylenol 325 mg Tablet] 325 mg PO Q4HP PRN tablet 10/28/16 Clindamycin HCl [Cleocin HCl] 300 mg PO QID #40 capsule 10/28/16 Docusate Sodium [Colace 100 mg Capsule] 100 mg PO BID capsule 10/28/16 Metformin HCl [Glucophage] 850 mg PO BID #60 tablet 10/28/16 Allergies/Adverse Reactions: No Known Allergies Allergy (Unverified 10/25/16 19:40) Review of Systems Constitutional: PRESENT: fatigue, weakness. ABSENT: as per HPI, anorexia, chills, fever(s), headache(s), night sweats, weight gain, weight loss, other Eyes: PRESENT: visual disturbances - legally blind in right eye Ears: PRESENT: hearing changes Nose, Mouth, and Throat: ABSENT: as per HPI, headache(s), mouth pain, sore throat, vertigo, other Cardiovascular: ABSENT: as per HPI, chest pain, dyspnea on exertion, edema, orthropnea, palpitations, other Respiratory: ABSENT: as per HPI, cough, dyspnea, hemoptysis, sputum, other Gastrointestinal: PRESENT: abdominal pain, diarrhea, nausea, vomiting. ABSENT: as per HPI, bloating, coffee ground emesis, constipation, dysphagia, heartburn, hematemesis, hematochezia, melena, other Genitourinary: ABSENT: dysuria, hematuria Musculoskeletal: PRESENT: back pain - with muscle aches Integumentary: ABSENT: rash, wounds Neurological: PRESENT: weakness - generalized and related to his ongoing acute illness. ABSENT: as per HPI, abnormal gait, abnormal movements, abnormal speech , confusion, convulsions, dizziness, focal weakness, frequent falls, lack of coordination, memory loss, numbness, paresthesias, restless legs, syncope, tingling, tremor(s), vertigo, other Psychiatric: ABSENT: anxiety, depression, homidical ideation, suicidal ideation Endocrine: ABSENT: cold intolerance, heat intolerance, polydipsia, polyuria Hematologic/Lymphatic: ABSENT: easy bleeding, easy bruising, lymphadenopathy Physical Exam Vital Signs: Temp Pulse Resp BP Pulse Ox 99.2 F 114 H 116/74 99 12/06/16 15:18 12/06/16 15:18 12/06/16 15:18 12/06/16 15:18 Intake & Output 12/05/16 12/06/16 12/07/16 06:59 06:59 06:59 Intake Total 116 Balance 116 Weight 86.863 kg General appearance: PRESENT: no acute distress, cooperative Head exam: PRESENT: atraumatic, normocephalic Eye exam: PRESENT: conjunctiva pink, EOMI, PERRLA. ABSENT: scleral icterus Ear exam: PRESENT: normal external ear exam Mouth exam: PRESENT: moist, tongue midline Teeth exam: PRESENT: poor dentation Throat exam: ABSENT: post pharyngeal erythema, tonsillar erythema, tonsillar exudate, tonsillogmegaly, other Neck exam: PRESENT: full ROM. ABSENT: carotid bruit, JVD, lymphadenopathy, thyromegaly Respiratory exam: PRESENT: clear to auscultation lena Cardiovascular exam: PRESENT: RRR. ABSENT: diastolic murmur, rubs, systolic murmur Pulses: PRESENT: normal dorsalis pedis pul, +2 pedal pulses bilateral Vascular exam: PRESENT: normal capillary refill GI/Abdominal exam: PRESENT: tenderness - epigastric and LLU regions Rectal exam: PRESENT: deferred Extremities exam: PRESENT: full ROM Musculoskeletal exam: PRESENT: deformity - related to joint involvement with arthritis Neurological exam: PRESENT: alert, awake, oriented to person, oriented to place , oriented to time, oriented to situation, CN II-XII grossly intact. ABSENT: motor sensory deficit Psychiatric exam: PRESENT: appropriate affect, normal mood. ABSENT: homicidal ideation, suicidal ideation Skin exam: PRESENT: dry, intact, warm. ABSENT: cyanosis, rash Results Laboratory Results: 12/06/16 16:13 12/06/16 16:13 12/06/16 12/06/16 12/06/16 16:13 16:13 16:20 WBC 15.5 H RBC 5.14 Hgb 16.0 Hct 44.8 MCV 87 MCH 31.1 MCHC 35.7 RDW 12.5 Plt Count 330 Seg Neutrophils % 76.8 Lymphocytes % 8.7 L Monocytes % 13.9 H Eosinophils % 0.3 Basophils % 0.3 Absolute Neutrophils 11.9 H Absolute Lymphocytes 1.3 Absolute Monocytes 2.2 H Absolute Eosinophils 0.0 Absolute Basophils 0.0 Sodium 140.2 Potassium 4.0 Chloride 100 Carbon Dioxide 24 Anion Gap 16 BUN 13 Creatinine 0.94 Est GFR ( Amer) > 60 Est GFR (Non-Af Amer) > 60 Glucose 115 H Calcium 9.8 Total Bilirubin 1.1 AST 32 ALT 54 Alkaline Phosphatase 163 H Total Protein 7.5 Albumin 4.1 Stool Occult Blood POSITIVE STOOL C. DIFFICILE TOXIN TITER POSITIVE Assessment & Plan - Diagnosis (1) C. difficile enteritis Is this a current diagnosis for this admission?: YesPlan: See admitting physician orders. (2) HLD (hyperlipidemia) Qualifiers: Hyperlipidemia type: pure hypercholesterolemia Qualified Code(s): E78.00 - Pure hypercholesterolemia, unspecified; E78.0 - Pure hypercholesterolemia Is this a current diagnosis for this admission?: YesPlan: See admitting physician orders. (3) Diabetes mellitus type 2 in nonobese Is this a current diagnosis for this admission?: YesPlan: See admitting physician orders. - Time Time Spent: 50 to 70 Minutes Medications reviewed and adjusted accordingly: Yes Anticipated discharge: Home Within: Other - Inpatient Certification Medical Necessity: Need Close Monitoring Due to Risk of Patient Decompensation, Need For IV Fluids, Need For Continuous Telemetry Monitoring, Need for IV Antibiotics, Risk of Complication if Not Cared For in Hospital Post Hospital Care: D/C Steam Drier Tender Documentation - Plan Summary Plan Summary: See admitting physician orders.
[2016-12-06] MEDS ORDERED: VANCOMYCIN HCL INJ 500 MG VIAL PO ONE (19:00)
[2016-12-06 20:54] LABS: APPEARANCE,URINE CLOUDY; BILIRUBIN,URINE NEGATIVE (NEGATIVE); GLUCOSE, URINE NEGATIVE (NEGATIVE); KETONES,URINE TRACE mg/dL (NEGATIVE); LEUKOCYTE ESTERASE,URINE TRACE (NEGATIVE); NITRITE,URINE NEGATIVE (NEGATIVE); PROTEIN,URINE 30 mg/dL (NEGATIVE); URINE SPECIFIC GRAVITY 1.013; UROBILINOGEN,URINE NEGATIVE mg/dL (<2.0)
[2016-12-06] MEDS ORDERED: CIPROFLOXACIN 400 MG/D5W RTU 400 MG/200 ML RTUPB IV SCH (22:00)
[2016-12-06] MEDS ORDERED: ZOLPIDEM TARTRATE 5 MG TABLET PO ONE (23:00)
[2016-12-06] MEDS: VANCOMYCIN HCL INJ 500 MG VIAL PO SCH (23:28)
[2016-12-07] MEDS: VANCOMYCIN HCL INJ 500 MG VIAL PO SCH ×4 (05:05→23:44)
[2016-12-07] MEDS: METRONIDAZOLE 500 MG/NS RTU 100 ML IV SCH ×4 (05:05→23:44)
[2016-12-07 05:06] LABS: ABSOLUTE BASOPHILS # (AUTO) 0.1 10^3/uL (0.0-0.2); ABSOLUTE EOSINOPHILS # (AUTO) 0.2 10^3/uL (0.0-0.6); ABSOLUTE LYMPHOCYTES (AUTO) 1.8 10^3/uL (0.5-4.7); ABSOLUTE MONOCYTES (AUTO) 2.3 10^3/uL (0.1-1.4); ABSOLUTE NEUT (AUTO) 8.8 10^3/uL (1.7-8.2); BASOPHILS % (AUTO) 0.5 % (0-2); EOSINOPHILS % (AUTO) 1.4 % (0-6); HEMOGLOBIN 14.8 g/dL (13.5-17.0); HGB HCT DIFFERENCE 1.4; MEAN CORPUSCULAR HEMOGLOBIN 30.1 pg (27.0-33.4); MEAN CORPUSCULAR HGB CONC 34.5 g/dL (32.0-36.0); MEAN CORPUSCULAR VOLUME 87 fl (80-97); MONOCYTES % (AUTO) 17.2 % (3-13); RED BLOOD COUNT 4.94 10^6/uL (4.35-5.55); RED CELL DISTRIBUTION WIDTH 12.6 % (11.5-14.0); SEGMENTED NEUTROPHILS % (AUTO) 66.9 % (42-78); WHITE BLOOD COUNT 13.2 10^3/uL (4.0-10.5)
[2016-12-07] MEDS: NORMAL SALINE 1000 ML 1,000 ML IV PRN ×2 (05:06→15:59)
[2016-12-07 05:22] LABS: ALANINE AMINOTRANSFERASE 46 U/L (21-72); ALBUMIN 3.5 g/dL (3.5-5.0); ALKALINE PHOSPHATASE 148 U/L (38-126); ANION GAP 13 (5-19); ASPARTATE AMINO TRANSFERASE 25 U/L (17-59); BILIRUBIN,DIRECT 0.2 mg/dL (0.0-0.4); BILIRUBIN,TOTAL 0.9 mg/dL (0.2-1.3); BLOOD UREA NITROGEN 10 mg/dL (7-20); CARBON DIOXIDE 23 mmol/L (22-30); CHLORIDE 104 mmol/L (98-107); GLUCOSE 123 mg/dL (75-110); POTASSIUM 3.2 mmol/L (3.6-5.0); SODIUM 139.8 mmol/L (137-145); TOTAL PROTEIN 6.3 g/dL (6.3-8.2)
[2016-12-07] MEDS: LANSOPRAZOLE 15 MG TAB.RAP.DR PO SCH (07:38)
[2016-12-07] MEDS: ATORVASTATIN CALCIUM 10 MG TABLET PO SCH (07:38)
[2016-12-07] MEDS: POTASSIUM CHLORIDE 10 MEQ TABLET.SA PO SCH ×2 (09:07→13:31)
[2016-12-07] MEDS: ENOXAPARIN SODIUM INJ 40 MG/0.4 ML DISP.SYRIN SUBCUT SCH (09:08)
[2016-12-07] MEDS ORDERED: LANSOPRAZOLE 30 MG TAB.RAP.DR PO SCH (10:00)
[2016-12-07] MEDS: INSULIN LISPRO 100 UNIT/ML 3 ML VIAL SUBCUT PRN (16:01)
--- NOTE | 2016-12-07 18:29 | PDOC PROGRESS REPORT ---
Subjective Progress Note for:: 12/07/16 Subjective:: Patient reported some improvement in his diarrhea volume and consistency. described stool as greenish in color and some degree of formed lump. No nausea, vomiting or significant abdominal cramp pain. Appetite and po intake better at supper today. No chest pain or difficulty with breathing. Physical Exam Vital Signs: Temp Pulse Resp BP Pulse Ox 98.5 F 89 16 116/73 100 12/07/16 03:10 12/07/16 06:36 12/07/16 03:10 12/07/16 03:10 12/07/16 03:10 Intake & Output 12/06/16 12/07/16 12/08/16 06:59 06:59 06:59 Intake Total 1026 Output Total 700 Balance 326 Weight 87.9 kg General appearance: PRESENT: no acute distress, cooperative Head exam: PRESENT: atraumatic, normocephalic Eye exam: PRESENT: conjunctiva pink, EOMI, PERRLA. ABSENT: scleral icterus Mouth exam: PRESENT: moist, tongue midline Neck exam: PRESENT: full ROM. ABSENT: carotid bruit, JVD, lymphadenopathy, thyromegaly Respiratory exam: PRESENT: clear to auscultation lena Cardiovascular exam: PRESENT: RRR. ABSENT: diastolic murmur, rubs, systolic murmur GI/Abdominal exam: PRESENT: normal bowel sounds, soft. ABSENT: distended, guarding, mass, organolmegaly, rebound, tenderness Extremities exam: PRESENT: full ROM Musculoskeletal exam: PRESENT: ambulatory Neurological exam: PRESENT: alert, awake, oriented to person, oriented to place , oriented to time, oriented to situation, CN II-XII grossly intact. ABSENT: motor sensory deficit Psychiatric exam: PRESENT: appropriate affect, normal mood. ABSENT: homicidal ideation, suicidal ideation Skin exam: PRESENT: dry, intact, warm. ABSENT: cyanosis, rash Results Laboratory Results: 12/07/16 04:34 12/07/16 04:34 12/06/16 12/06/16 12/06/16 16:13 16:13 16:20 WBC 15.5 H RBC 5.14 Hgb 16.0 Hct 44.8 MCV 87 MCH 31.1 MCHC 35.7 RDW 12.5 Plt Count 330 Seg Neutrophils % 76.8 Lymphocytes % 8.7 L Monocytes % 13.9 H Eosinophils % 0.3 Basophils % 0.3 Absolute Neutrophils 11.9 H Absolute Lymphocytes 1.3 Absolute Monocytes 2.2 H Absolute Eosinophils 0.0 Absolute Basophils 0.0 Sodium 140.2 Potassium 4.0 Chloride 100 Carbon Dioxide 24 Anion Gap 16 BUN 13 Creatinine 0.94 Est GFR ( Amer) > 60 Est GFR (Non-Af Amer) > 60 Glucose 115 H Calcium 9.8 Total Bilirubin 1.1 AST 32 ALT 54 Alkaline Phosphatase 163 H Total Protein 7.5 Albumin 4.1 Urine Color Urine Appearance Urine pH Ur Specific [place] Urine Protein Urine Glucose (UA) Urine Ketones Urine Blood Urine Nitrite Ur Leukocyte Esterase Urine WBC (Auto) Urine RBC (Auto) Stool Occult Blood POSITIVE 12/06/16 12/07/16 12/07/16 20:27 04:34 04:34 WBC 13.2 H RBC 4.94 Hgb 14.8 Hct 43.0 MCV 87 MCH 30.1 MCHC 34.5 RDW 12.6 Plt Count 283 Seg Neutrophils % 66.9 Lymphocytes % 14.0 Monocytes % 17.2 H Eosinophils % 1.4 Basophils % 0.5 Absolute Neutrophils 8.8 H Absolute Lymphocytes 1.8 Absolute Monocytes 2.3 H Absolute Eosinophils 0.2 Absolute Basophils 0.1 Sodium 139.8 Potassium 3.2 L Chloride 104 Carbon Dioxide 23 Anion Gap 13 BUN 10 Creatinine 0.80 Est GFR ( Amer) > 60 Est GFR (Non-Af Amer) > 60 Glucose 123 H Calcium 9.0 Total Bilirubin 0.9 AST 25 ALT 46 Alkaline Phosphatase 148 H Total Protein 6.3 Albumin 3.5 Urine Color YELLOW Urine Appearance CLOUDY Urine pH 5.0 Ur Specific [place] 1.013 Urine Protein 30 H Urine Glucose (UA) NEGATIVE Urine Ketones TRACE H Urine Blood LARGE H Urine Nitrite NEGATIVE Ur Leukocyte Esterase TRACE H Urine WBC (Auto) 9 Urine RBC (Auto) 4 Stool Occult Blood Assessment & Plan - Diagnosis (1) C. difficile enteritis Is this a current diagnosis for this admission?: YesPlan: See attending physician orders. (2) HLD (hyperlipidemia) Qualifiers: Hyperlipidemia type: pure hypercholesterolemia Qualified Code(s): E78.00 - Pure hypercholesterolemia, unspecified; E78.0 - Pure hypercholesterolemia Is this a current diagnosis for this admission?: YesPlan: See attending physician orders. (3) Diabetes mellitus type 2 in nonobese Is this a current diagnosis for this admission?: YesPlan: See attending physician orders. (4) Urinary tract infection, bacterial Is this a current diagnosis for this admission?: YesPlan: See attending physician orders. - Time Time Spent with patient: 25-34 minutes Medications reviewed and adjusted accordingly: Yes Within: Other - Inpatient Certification Medical Necessity: Need Close Monitoring Due to Risk of Patient Decompensation, Need For IV Fluids, Need for IV Antibiotics, Risk of Complication if Not Cared For in Hospital Post Hospital Care: D/C Food Safety Auditor Documentation - Plan Summary Plan Summary: See attending physician orders.
[2016-12-07] MEDS: LEVOFLOXACIN 500 MG/D5W RTU 500 MG/100 ML RTUPB IV SCH (20:21)
[2016-12-07] MEDS: ZOLPIDEM TARTRATE 5 MG TABLET PO PRN (21:02)
[2016-12-08] MEDS: METRONIDAZOLE 500 MG/NS RTU 100 ML IV SCH ×4 (05:03→23:44)
[2016-12-08] MEDS: VANCOMYCIN HCL INJ 500 MG VIAL PO SCH ×4 (05:03→23:47)
[2016-12-08] MEDS: NORMAL SALINE 1000 ML 1,000 ML IV PRN ×2 (07:41→22:38)
[2016-12-08] MEDS: LANSOPRAZOLE 15 MG TAB.RAP.DR PO SCH (08:08)
[2016-12-08] MEDS: ATORVASTATIN CALCIUM 10 MG TABLET PO SCH (08:08)
--- NOTE | 2016-12-08 08:17 | PDOC PROGRESS REPORT ---
Subjective Progress Note for:: 12/08/16 Subjective:: Patient continue to experience episodes of profuse diarrhea. There is nausea but tolerating oral feeding satisfactorily. No significant abdominal pain or volume. No fever or chills. No chest pain or difficulty with breathing. Physical Exam Vital Signs: Temp Pulse Resp BP Pulse Ox 97.6 F 90 17 117/72 99 12/08/16 07:43 12/08/16 07:43 12/08/16 07:43 12/08/16 07:43 12/08/16 07:43 Intake & Output 12/07/16 12/08/16 12/09/16 06:59 06:59 06:59 Intake Total 1026 3645 Output Total 700 Balance 326 3645 Weight 87.9 kg 88.5 kg Physical Exam: General appearance: PRESENT: no acute distress, cooperative Head exam: PRESENT: atraumatic, normocephalic Eye exam: PRESENT: conjunctiva pink, EOMI, PERRLA. ABSENT: scleral icterus Mouth exam: PRESENT: moist, tongue midline Neck exam: PRESENT: full ROM. ABSENT: carotid bruit, JVD, lymphadenopathy, thyromegaly Respiratory exam: PRESENT: clear to auscultation lena Cardiovascular exam: PRESENT: RRR. ABSENT: diastolic murmur, rubs, systolic murmur GI/Abdominal exam: PRESENT: normal bowel sounds, soft. ABSENT: distended, guarding, mass, organomegaly, rebound, tenderness Extremities exam: PRESENT: full ROM Musculoskeletal exam: PRESENT: ambulatory Neurological exam: PRESENT: alert, awake, oriented to person, oriented to place , oriented to time, oriented to situation, CN II-XII grossly intact. ABSENT: motor sensory deficit Psychiatric exam: PRESENT: appropriate affect, normal mood. ABSENT: homicidal ideation, suicidal ideation Skin exam: PRESENT: dry, intact, warm. ABSENT: cyanosis, rash Results Laboratory Results: 12/07/16 04:34 12/07/16 04:34 12/07/16 04:34 Magnesium 1.5 L Assessment & Plan - Diagnosis (1) C. difficile enteritis Is this a current diagnosis for this admission?: YesPlan: See attending physician orders. Continue oral Vancomycin and IV Metronidazole coverage. (2) HLD (hyperlipidemia) Qualifiers: Hyperlipidemia type: pure hypercholesterolemia Qualified Code(s): E78.00 - Pure hypercholesterolemia, unspecified; E78.0 - Pure hypercholesterolemia Is this a current diagnosis for this admission?: YesPlan: See attending physician orders. (3) Diabetes mellitus type 2 in nonobese Is this a current diagnosis for this admission?: YesPlan: See attending physician orders. (4) Urinary tract infection, bacterial Is this a current diagnosis for this admission?: YesPlan: See attending physician orders. Maintain on IV Levofloxacin coverage and consider d/c after 3rd dose if identified organism is sensitive to Levofloxacin. (5) Hypokalemia due to loss of potassium Is this a current diagnosis for this admission?: YesPlan: Related to diarrhea and electrolyte loss. Patient will continue on oral replacement. (6) Hypomagnesemia Is this a current diagnosis for this admission?: YesPlan: Related to diarrhea and electrolyte loss. Patient will continue on oral replacement. - Time Time Spent with patient: 25-34 minutes Medications reviewed and adjusted accordingly: Yes Anticipated discharge: Home Within: Other - Inpatient Certification Based on my medical assessment, after consideration of the patient's comorbidities, presenting symptoms, or acuity I expect that the services needed warrant INPATIENT care.: Yes I certify that my determination is in accordance with my understanding of Medicare's requirements for reasonable and necessary INPATIENT services [42 CFR 412.3e].: Yes Medical Necessity: Significant Comorbidiites Make Outpatient Treatment Too Risky , Need For IV Fluids, Need For Continuous Telemetry Monitoring, Need for IV Antibiotics, Risk of Complication if Not Cared For in Hospital Post Hospital Care: D/C Powder Core Tester Documentation - Plan Summary Plan Summary: See attending physician orders.
[2016-12-08] MEDS: MAGNESIUM SULFATE/D5W 1 GM/100 ML RTUPB IV SCH ×2 (08:54→10:12)
[2016-12-08 09:30] LABS: ABSOLUTE EOSINOPHILS # (AUTO) 0.2 10^3/uL (0.0-0.6); ABSOLUTE LYMPHOCYTES (AUTO) 1.4 10^3/uL (0.5-4.7); ABSOLUTE MONOCYTES (AUTO) 0.9 10^3/uL (0.1-1.4); ABSOLUTE NEUT (AUTO) 5.8 10^3/uL (1.7-8.2); BASOPHILS % (AUTO) 0.6 % (0-2); EOSINOPHILS % (AUTO) 1.9 % (0-6); HEMATOCRIT 40.6 % (37.9-51.0); HEMOGLOBIN 14.2 g/dL (13.5-17.0); LYMPHOCYTES % (AUTO) 16.5 % (13-45); MEAN CORPUSCULAR HEMOGLOBIN 30.5 pg (27.0-33.4); MEAN CORPUSCULAR VOLUME 87 fl (80-97); MONOCYTES % (AUTO) 11.3 % (3-13); RED BLOOD COUNT 4.65 10^6/uL (4.35-5.55); RED CELL DISTRIBUTION WIDTH 12.6 % (11.5-14.0); SEGMENTED NEUTROPHILS % (AUTO) 69.7 % (42-78); WHITE BLOOD COUNT 8.4 10^3/uL (4.0-10.5)
[2016-12-08 09:58] LABS: ANION GAP 10 (5-19); BLOOD UREA NITROGEN 8 mg/dL (7-20); CALCIUM 9.1 mg/dL (8.4-10.2); CARBON DIOXIDE 24 mmol/L (22-30); CHLORIDE 107 mmol/L (98-107); CREATININE RESULT 0.71 mg/dL (0.52-1.25); GLUCOSE 189 mg/dL (75-110); POTASSIUM 3.6 mmol/L (3.6-5.0); SODIUM 140.5 mmol/L (137-145)
[2016-12-08] MEDS: ENOXAPARIN SODIUM INJ 40 MG/0.4 ML DISP.SYRIN SUBCUT SCH (10:10)
[2016-12-08] MEDS: INSULIN LISPRO 100 UNIT/ML 3 ML VIAL SUBCUT PRN (12:04)
[2016-12-08] MEDS: LEVOFLOXACIN 500 MG/D5W RTU 500 MG/100 ML RTUPB IV SCH (20:31)
[2016-12-08] MEDS: ZOLPIDEM TARTRATE 5 MG TABLET PO PRN (22:39)
[2016-12-09] MEDS: ONDANSETRON HCL INJ/PF 4 MG/2 ML SDV IV PRN ×2 (00:01→19:58)
[2016-12-09] MEDS: METRONIDAZOLE 500 MG/NS RTU 100 ML IV SCH (05:18)
[2016-12-09] MEDS: VANCOMYCIN HCL INJ 500 MG VIAL PO SCH ×3 (05:20→17:43)
[2016-12-09] MEDS: LANSOPRAZOLE 15 MG TAB.RAP.DR PO SCH (07:46)
[2016-12-09] MEDS: ATORVASTATIN CALCIUM 10 MG TABLET PO SCH (07:46)
--- NOTE | 2016-12-09 08:35 | PDOC PROGRESS REPORT ---
Subjective Progress Note for:: 12/09/16 Subjective:: Patient reported improvement in his diarrhea. There was episode of nausea and vomiting since last clinical evaluation that resolved with IV Zofran administration. He remain on IV Metronidazole therapy. No fever or chills. No chest pain or difficulty with breathing. Physical Exam Vital Signs: Temp Pulse Resp BP Pulse Ox 98.0 F 75 16 121/71 98 12/09/16 04:02 12/09/16 07:00 12/09/16 04:02 12/09/16 04:02 12/09/16 04:02 Intake & Output 12/08/16 12/09/16 12/10/16 06:59 06:59 06:59 Intake Total 3645 4072 Balance 3645 4072 Weight 88.5 kg 88.3 kg Physical Exam: General appearance: PRESENT: no acute distress, cooperative Head exam: PRESENT: atraumatic, normocephalic Eye exam: PRESENT: conjunctiva pink, EOMI, PERRLA. ABSENT: scleral icterus Mouth exam: PRESENT: moist, tongue midline Neck exam: PRESENT: full ROM. ABSENT: carotid bruit, JVD, lymphadenopathy, thyromegaly Respiratory exam: PRESENT: clear to auscultation lena Cardiovascular exam: PRESENT: RRR. ABSENT: diastolic murmur, rubs, systolic murmur GI/Abdominal exam: PRESENT: normal bowel sounds, soft. ABSENT: distended, guarding, mass, organomegaly, rebound, tenderness Extremities exam: PRESENT: full ROM Musculoskeletal exam: PRESENT: ambulatory Neurological exam: PRESENT: alert, awake, oriented to person, oriented to place , oriented to time, oriented to situation, CN II-XII grossly intact. ABSENT: motor sensory deficit Psychiatric exam: PRESENT: appropriate affect, normal mood. ABSENT: homicidal ideation, suicidal ideation Skin exam: PRESENT: dry, intact, warm. ABSENT: cyanosis, rash Results Laboratory Results: 12/08/16 09:16 12/08/16 09:16 12/08/16 12/08/16 09:16 09:16 WBC 8.4 RBC 4.65 Hgb 14.2 Hct 40.6 MCV 87 MCH 30.5 MCHC 35.0 RDW 12.6 Plt Count 271 Seg Neutrophils % 69.7 Lymphocytes % 16.5 Monocytes % 11.3 Eosinophils % 1.9 Basophils % 0.6 Absolute Neutrophils 5.8 Absolute Lymphocytes 1.4 Absolute Monocytes 0.9 Absolute Eosinophils 0.2 Absolute Basophils 0.0 Sodium 140.5 Potassium 3.6 Chloride 107 Carbon Dioxide 24 Anion Gap 10 BUN 8 Creatinine 0.71 Est GFR ( Amer) > 60 Est GFR (Non-Af Amer) > 60 Glucose 189 H Calcium 9.1 12/06/16 20:27 Clean Catch Midstream Urine Culture - Final Escherichia Coli 12/06/16 16:20 Stool - Stool - Final 12/06/16 16:20 Stool - Stool Stool Culture - Final NO SALMONELLA, SHIGELLA, CAMPYLOBACTER, OR E.COLI 0157 RECOVERED. NEGATIVE FOR SHIGA TOXINS 1&2. Assessment & Plan - Diagnosis (1) C. difficile enteritis Is this a current diagnosis for this admission?: YesPlan: See attending physician orders. Continue oral Vancomycin and change Metronidazole coverage to oral route. (2) HLD (hyperlipidemia) Qualifiers: Hyperlipidemia type: pure hypercholesterolemia Qualified Code(s): E78.00 - Pure hypercholesterolemia, unspecified; E78.0 - Pure hypercholesterolemia Is this a current diagnosis for this admission?: Yes (3) Diabetes mellitus type 2 in nonobese Is this a current diagnosis for this admission?: YesPlan: See attending physician orders. (4) Urinary tract infection, bacterial Is this a current diagnosis for this admission?: YesPlan: See attending physician orders. Maintain on IV Levofloxacin coverage and consider d/c after 3rd dose if identified organism is sensitive to Levofloxacin. (5) Hypokalemia due to loss of potassium Is this a current diagnosis for this admission?: YesPlan: See attending physician orders. (6) Hypomagnesemia Is this a current diagnosis for this admission?: YesPlan: See attending physician orders. - Time Time Spent with patient: 25-34 minutes Medications reviewed and adjusted accordingly: Yes Anticipated discharge: Home Within: within 24 hours - Inpatient Certification Based on my medical assessment, after consideration of the patient's comorbidities, presenting symptoms, or acuity I expect that the services needed warrant INPATIENT care.: Yes I certify that my determination is in accordance with my understanding of Medicare's requirements for reasonable and necessary INPATIENT services [42 CFR 412.3e].: Yes Medical Necessity: Need Close Monitoring Due to Risk of Patient Decompensation, Need For IV Fluids, Need For Continuous Telemetry Monitoring, Need for IV Antibiotics, Risk of Complication if Not Cared For in Hospital Post Hospital Care: D/C Executive 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
[2016-12-09] MEDS: ENOXAPARIN SODIUM INJ 40 MG/0.4 ML DISP.SYRIN SUBCUT SCH (09:19)
[2016-12-09 10:53] LABS: ANION GAP 12 (5-19); BLOOD UREA NITROGEN 6 mg/dL (7-20); CALCIUM 8.9 mg/dL (8.4-10.2); CARBON DIOXIDE 22 mmol/L (22-30); CHLORIDE 107 mmol/L (98-107); GLUCOSE 148 mg/dL (75-110); MAGNESIUM 1.6 mg/dL (1.6-2.3); POTASSIUM 3.4 mmol/L (3.6-5.0); SODIUM 141.1 mmol/L (137-145)
[2016-12-09] MEDS: INSULIN LISPRO 100 UNIT/ML 3 ML VIAL SUBCUT PRN (12:15)
[2016-12-09] MEDS: METRONIDAZOLE 500 MG TABLET PO SCH ×2 (14:26→22:44)
[2016-12-09] MEDS: LEVOFLOXACIN 500 MG/D5W RTU 500 MG/100 ML RTUPB IV SCH (19:56)
[2016-12-09] MEDS: NORMAL SALINE 1000 ML 1,000 ML IV PRN (19:57)
[2016-12-10] MEDS: VANCOMYCIN HCL INJ 500 MG VIAL PO SCH ×2 (00:38→06:37)
[2016-12-10 04:33] VITALS: BP 123/75
[2016-12-10] MEDS: METRONIDAZOLE 500 MG TABLET PO SCH (06:36)
[2016-12-10] MEDS: ATORVASTATIN CALCIUM 10 MG TABLET PO SCH (08:41)
[2016-12-10] MEDS: LANSOPRAZOLE 15 MG TAB.RAP.DR PO SCH (08:43)
--- NOTE | 2016-12-10 08:44 | PDOC DISCHARGE SUMMARY ---
General - Admit/Disc Date/PCP Admission Date/Primary Care Provider: 12/06/16 14:45 Discharge Date: 12/10/16 - Discharge Diagnosis (1) C. difficile enteritis Is this a current diagnosis for this admission?: Yes (2) HLD (hyperlipidemia) Is this a current diagnosis for this admission?: Yes (3) Diabetes mellitus type 2 in nonobese Is this a current diagnosis for this admission?: Yes (4) Urinary tract infection, bacterial Is this a current diagnosis for this admission?: Yes (5) Hypokalemia due to loss of potassium Is this a current diagnosis for this admission?: Yes (6) Hypomagnesemia Is this a current diagnosis for this admission?: Yes - Additional Information Resuscitation Status: Full Code Discharge Diet: Diabetic Discharge Activity: Activity As Tolerated Home Medications: Metformin HCl [Glucophage] 850 mg PO BID 12/09/16 Multivitamin [Daily Multiple Vitamin] 1 each PO DAILY 12/09/16 Atorvastatin Calcium [Lipitor 10 mg Tablet] 10 mg PO QAM #30 tablet 12/10/16 Metronidazole [Flagyl 500 mg Tablet] 500 mg PO Q8 #21 tablet 12/10/16 Ondansetron [Ondansetron Odt] 4 mg PO Q4HP PRN #30 tab.rapdis 12/10/16 Vancomycin HCl [Vancocin HCl] 125 mg PO Q6 #28 capsule 12/10/16 History of Present Illness Patient complains of: Patient was direct admit from the office after presenting with 3 days of worsening nausea, vomiting and diarrhea. Patient reported that his diarrhea symptom did not really resolved since his recent discharge from the hospital following leg abscess and diagnosis of diabetes mellitus. There was associated lower abdominal crampy pain and significant odor to his watery stool. He described stool as grenish although denied any food with similar color. History of Present Illness: NATALEE PETERS is a 61 year old male Hospital Course Hospital Course: Patient evaluation did revealed positive stool C. difficile toxin titer. His urine culture grew E. Coli. He was treated with IV Metronidazole and oral Vancomycin. His E.coli UTI was treated with IV Levofloxacin over 3 days period. His associated presenting symptoms and Leukocytosis did resolved. Patient has been able to tolerate oral feeding. No more abdominal pain. Diarrhea did resolved with food stool prior to his discharge. Patient will be discharge home today and follow up in the office as instructed upon discharge. Physical Exam Vital Signs: Temp Pulse Resp BP Pulse Ox 97.9 F 79 14 123/75 99 12/10/16 03:30 12/10/16 07:00 12/09/16 23:24 12/10/16 03:30 12/10/16 03:30 Intake & Output 12/09/16 12/10/16 12/11/16 06:59 06:59 06:59 Intake Total 4072 2437 Balance 4072 2437 Weight 88.3 kg 87.6 kg Physical Exam: General appearance: PRESENT: no acute distress, cooperative Head exam: PRESENT: atraumatic, normocephalic Eye exam: PRESENT: conjunctiva pink, EOMI, PERRLA. ABSENT: scleral icterus Mouth exam: PRESENT: moist, tongue midline Neck exam: PRESENT: full ROM. ABSENT: carotid bruit, JVD, lymphadenopathy, thyromegaly Respiratory exam: PRESENT: clear to auscultation lena Cardiovascular exam: PRESENT: RRR. ABSENT: diastolic murmur, rubs, systolic murmur GI/Abdominal exam: PRESENT: normal bowel sounds, soft. ABSENT: distended, guarding, mass, organomegaly, rebound, tenderness Extremities exam: PRESENT: full ROM Musculoskeletal exam: PRESENT: ambulatory Neurological exam: PRESENT: alert, awake, oriented to person, oriented to place , oriented to time, oriented to situation, CN II-XII grossly intact. ABSENT: motor sensory deficit Psychiatric exam: PRESENT: appropriate affect, normal mood. ABSENT: homicidal ideation, suicidal ideation Skin exam: PRESENT: dry, intact, warm. ABSENT: cyanosis, rash Results Laboratory Results: 12/08/16 09:16 12/09/16 10:01 12/09/16 10:01 Sodium 141.1 Potassium 3.4 L Chloride 107 Carbon Dioxide 22 Anion Gap 12 BUN 6 L Creatinine 0.70 Est GFR ( Amer) > 60 Est GFR (Non-Af Amer) > 60 Glucose 148 H Calcium 8.9 Magnesium 1.6 Qualifiers PATEINT BEING DISCHARGED WITH ANY OF THE FOLLOWING DIAGNOSIS?: No Plan Discharge Plan: D/C home today with 7 days of Flagyl and Vancomycin oral therapy. Follow up in the office as instructed. Time Spent: Less than 30 Minutes
[2016-12-10] MEDS ORDERED: POTASSIUM CHLORIDE 10 MEQ TABLET.SA PO SCH (10:00)
== END 2016-12-10 10:20 | disposition home or self-care (01) | DRG 372 ==
LOC: 3W 14:45
PROVIDERS: ADMIT Internal Medicine Geriatric Medicine; ATTEND Internal Medicine Geriatric Medicine
DX: A04.7 Enterocolitis due to Clostridium difficile (principal); N39.0 Urinary tract infection, site not specified; B96.20 Unspecified Escherichia coli [E. coli] as the cause of diseases classified elsewhere; E87.6 Hypokalemia; E83.42 Hypomagnesemia; E11.9 Type 2 diabetes mellitus without complications; E78.5 Hyperlipidemia, unspecified; E78.00 Pure hypercholesterolemia, unspecified; K21.9 Gastro-esophageal reflux disease without esophagitis; M19.90 Unspecified osteoarthritis, unspecified site; H54.41 Blindness, right eye, normal vision left eye; Z79.84 Long term (current) use of oral hypoglycemic drugs; Z79.899 Other long term (current) drug therapy; Z87.891 Personal history of nicotine dependence
CPT/HCPCS: 36415; 80048; 80053; 81001; 82272; 82962; 83735; 85025; 87045; 87086; 87088; 87186; 87205; 87493; J1650; J1815; J1956; J2405; J3370; J3475; J7030

== ENCOUNTER 2017-01-20 11:55 | Inpatient (IN) | payer OTHER ==
[2017-01-20] MEDS ORDERED: NORMAL SALINE 1000 ML 1,000 ML IV PRN (12:29)
[2017-01-20 14:00] LABS: HEMATOCRIT 44.1 % (37.9-51.0); HEMOGLOBIN 14.6 g/dL (13.5-17.0); HGB HCT DIFFERENCE -0.3; MEAN CORPUSCULAR HEMOGLOBIN 29.6 pg (27.0-33.4); MEAN CORPUSCULAR HGB CONC 33.2 g/dL (32.0-36.0); MEAN CORPUSCULAR VOLUME 89 fl (80-97); RED BLOOD COUNT 4.95 10^6/uL (4.35-5.55); RED CELL DISTRIBUTION WIDTH 13.1 % (11.5-14.0); WHITE BLOOD COUNT 29.8 10^3/uL (4.0-10.5)
[2017-01-20 14:06] LABS: ALANINE AMINOTRANSFERASE 111 U/L (21-72); ALBUMIN 4.2 g/dL (3.5-5.0); ALKALINE PHOSPHATASE 136 U/L (38-126); ANION GAP 13 (5-19); ASPARTATE AMINO TRANSFERASE 81 U/L (17-59); BILIRUBIN,DIRECT 0.5 mg/dL (0.0-0.4); BILIRUBIN,TOTAL 1.4 mg/dL (0.2-1.3); BLOOD UREA NITROGEN 13 mg/dL (7-20); CARBON DIOXIDE 24 mmol/L (22-30); CHLORIDE 102 mmol/L (98-107); CREATININE RESULT 0.96 mg/dL (0.52-1.25); GLUCOSE 134 mg/dL (75-110); POTASSIUM 3.3 mmol/L (3.6-5.0); SODIUM 139.1 mmol/L (137-145); TOTAL PROTEIN 7.4 g/dL (6.3-8.2)
[2017-01-20 14:48] LABS: BAND NEUTROPHILS % (MANUAL) 2 % (3-5); BASOPHILS % (MANUAL) 0 % (0-2); EOSINOPHILS % (MANUAL) 1 % (0-6); LYMPHOCYTES % (MANUAL) 6 % (13-45); TOTAL CELLS COUNTED 100
[2017-01-20 14:49] LABS: RBC MORPHOLOGY COMMENT NORMO-CYTIC/CHROMIC; TOXIC GRANULATION SLIGHT; TOXIC VACUOLATION PRESENT
[2017-01-20 15:31] LABS: APPEARANCE,URINE SLIGHTLY-CLOUDY; BILIRUBIN,URINE NEGATIVE (NEGATIVE); GLUCOSE, URINE NEGATIVE (NEGATIVE); KETONES,URINE NEGATIVE (NEGATIVE); LEUKOCYTE ESTERASE,URINE NEGATIVE (NEGATIVE); NITRITE,URINE NEGATIVE (NEGATIVE); PROTEIN,URINE 100 mg/dL (NEGATIVE); URINE SPECIFIC GRAVITY 1.013; UROBILINOGEN,URINE NEGATIVE mg/dL (<2.0)
[2017-01-20] MEDS ORDERED: VANCOMYCIN HCL INJ 500 MG VIAL PO SCH (18:00)
[2017-01-20] MEDS ORDERED: VANCOMYCIN HCL INJ 500 MG VIAL IV SCH (18:00)
[2017-01-20] MEDS: METRONIDAZOLE 500 MG/NS RTU 100 ML IV SCH ×2 (18:30→23:29)
[2017-01-20] MEDS: METFORMIN HCL 850 MG TABLET PO SCH (18:30)
--- NOTE | 2017-01-20 19:21 | PDOC H&P ---
History of Present Illness Admission Date/PCP: 01/20/17 11:55 ROSSY ALEKS Patient complains of: Nausea, vomiting, diarrhea and abdominal pain History of Present Illness: NATALEE PETERS is a 61 year old male known to my practice who presented to the office earlier today with acutely ill with listed complaints. Patient reported that he is feeling as he did when he was recently diagnosed with Clostridium difficile toxin colitis. He reported onset since yesterday. He localized pain to upper and mid lower abdominal region. He described pain as cramping. There is associated loss of appetite. Denied consumption of any unusual food or fluid. There is associated chills, fatigue, and generalized weakness. Patient reported associated rectal pain and burning sensation related to frequent bowel movement. His initial evaluation in the office revealed epigastric tenderness and significant leukocytosis. In view of these findings, he was advised hospitalization. Past Medical History Cardiac Medical History: Reports: Hyperlipidema Endocrine Medical History: Reports: Diabetes Mellitus Type 2 GI Medical History: Reports: Diverticulitis, Gastroesophageal Reflux Disease Musculoskeltal Medical History: Reports: Arthritis Psychiatric Medical History: Denies: Depression Social History Smoking Status: Former Smoker Cigarettes Packs Per Day: 2 Cigars Per Day: 40 Last Time Smoked: 2012 Frequency of Alcohol Use: Occasional Hx Recreational Drug Use: No Drugs: None Hx Prescription Drug Abuse: No - Advance Directive Resuscitation Status: Full Code Family History Family History: Reviewed & Not Pertinent Parental Family History Reviewed: Yes Children Family History Reviewed: Yes Sibling(s) Family History Reviewed.: Yes Medication/Allergy Home Medications: Atorvastatin Calcium [Lipitor 10 mg Tablet] 10 mg PO QAM 01/20/17 Metformin HCl [Glucophage] 850 mg PO BID 01/20/17 Multivitamin [Daily Multiple Vitamin] 1 tab PO DAILY 01/20/17 Allergies/Adverse Reactions: No Known Allergies Allergy (Unverified 10/25/16 19:40) Physical Exam Vital Signs: Temp Pulse Resp BP Pulse Ox 98.3 F 101 H 20 104/76 99 01/20/17 17:05 01/20/17 17:05 01/20/17 17:05 01/20/17 17:05 01/20/17 17:05 Intake & Output 01/19/17 01/20/17 01/21/17 06:59 06:59 06:59 Intake Total 240 Output Total 500 Balance -260 Weight 87.6 kg General appearance: PRESENT: no acute distress, well-developed, well-nourished Head exam: PRESENT: atraumatic, normocephalic Eye exam: PRESENT: conjunctiva pink, EOMI, PERRLA. ABSENT: scleral icterus Ear exam: PRESENT: normal external ear exam Mouth exam: PRESENT: moist, tongue midline Neck exam: PRESENT: full ROM. ABSENT: carotid bruit, JVD, lymphadenopathy, thyromegaly Cardiovascular exam: PRESENT: RRR. ABSENT: diastolic murmur, rubs, systolic murmur Pulses: PRESENT: normal dorsalis pedis pul, +2 pedal pulses bilateral Vascular exam: PRESENT: normal capillary refill GI/Abdominal exam: PRESENT: normal bowel sounds, soft, tenderness - epigastric region. ABSENT: ascites, distended, guarding, mass, Rawls's sign, organolmegaly, rebound Rectal exam: PRESENT: deferred Neurological exam: PRESENT: alert, awake, oriented to person, oriented to place , oriented to time, oriented to situation, CN II-XII grossly intact. ABSENT: motor sensory deficit Psychiatric exam: PRESENT: appropriate affect, normal mood. ABSENT: homicidal ideation, suicidal ideation Skin exam: PRESENT: dry, intact, warm. ABSENT: cyanosis, rash Results Laboratory Results: 01/20/17 13:33 01/20/17 13:33 01/20/17 01/20/17 01/20/17 12:22 13:33 13:33 WBC 29.8 H RBC 4.95 Hgb 14.6 Hct 44.1 MCV 89 MCH 29.6 MCHC 33.2 RDW 13.1 Plt Count 296 Seg Neutrophils % Not Reportable Lymphocytes % Not Reportable Monocytes % Not Reportable Eosinophils % Not Reportable Basophils % Not Reportable Absolute Neutrophils Not Reportable Absolute Lymphocytes Not Reportable Absolute Monocytes Not Reportable Absolute Eosinophils Not Reportable Absolute Basophils Not Reportable Sodium 139.1 Potassium 3.3 L Chloride 102 Carbon Dioxide 24 Anion Gap 13 BUN 13 Creatinine 0.96 Est GFR ( Amer) > 60 Est GFR (Non-Af Amer) > 60 Glucose 134 H Calcium 10.0 Magnesium 1.6 Total Bilirubin 1.4 H AST 81 H ALT 111 H Alkaline Phosphatase 136 H Total Protein 7.4 Albumin 4.2 Urine Color Urine Appearance Urine pH Ur Specific [place] Urine Protein Urine Glucose (UA) Urine Ketones Urine Blood Urine Nitrite Ur Leukocyte Esterase Urine WBC (Auto) Urine RBC (Auto) Stool Occult Blood 01/20/17 01/20/17 15:10 15:10 WBC RBC Hgb Hct MCV MCH MCHC RDW Plt Count Seg Neutrophils % Lymphocytes % Monocytes % Eosinophils % Basophils % Absolute Neutrophils Absolute Lymphocytes Absolute Monocytes Absolute Eosinophils Absolute Basophils Sodium Potassium Chloride Carbon Dioxide Anion Gap BUN Creatinine Est GFR ( Amer) Est GFR (Non-Af Amer) Glucose Calcium Magnesium Total Bilirubin AST ALT Alkaline Phosphatase Total Protein Albumin Urine Color YELLOW Urine Appearance SLIGHTLY-CLOUDY Urine pH 5.0 Ur Specific [place] 1.013 Urine Protein 100 H Urine Glucose (UA) NEGATIVE Urine Ketones NEGATIVE Urine Blood LARGE H Urine Nitrite NEGATIVE Ur Leukocyte Esterase NEGATIVE Urine WBC (Auto) 6 Urine RBC (Auto) 2 Stool Occult Blood POSITIVE Assessment & Plan - Diagnosis (1) C. difficile enteritis Is this a current diagnosis for this admission?: YesPlan: See admitting attending orders. (2) Diabetes mellitus type 2 in nonobese Is this a current diagnosis for this admission?: YesPlan: See admitting attending orders. (3) HLD (hyperlipidemia) Qualifiers: Hyperlipidemia type: pure hypercholesterolemia Qualified Code(s): E78.00 - Pure hypercholesterolemia, unspecified; E78.0 - Pure hypercholesterolemia Is this a current diagnosis for this admission?: YesPlan: See admitting attending orders. (4) Hypokalemia due to loss of potassium Is this a current diagnosis for this admission?: YesPlan: See admitting attending orders. (5) Hypomagnesemia Is this a current diagnosis for this admission?: YesPlan: See admitting attending orders. 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
[2017-01-20] MEDS ORDERED: MAGNESIUM SULFATE/D5W 1 GM/100 ML RTUPB IV ONE (19:30)
[2017-01-20] MEDS ORDERED: PANTOPRAZOLE SODIUM 40 MG VIAL IV SCH (22:00)
[2017-01-20] MEDS ORDERED: CIPROFLOXACIN 400 MG/D5W RTU 400 MG/200 ML RTUPB IV SCH (22:00)
[2017-01-20] MEDS: POTASSIUM CHLORIDE 10 MEQ TABLET.SA PO SCH (23:28)
[2017-01-21] MEDS: VANCOMYCIN HCL INJ 500 MG VIAL PO SCH ×4 (00:47→19:33)
[2017-01-21] MEDS: POTASSIUM CHLORIDE 10 MEQ TABLET.SA PO SCH ×2 (03:28→06:13)
[2017-01-21 05:57] LABS: ABSOLUTE EOSINOPHILS # (AUTO) 0.2 10^3/uL (0.0-0.6); ABSOLUTE LYMPHOCYTES (AUTO) 1.9 10^3/uL (0.5-4.7); ABSOLUTE MONOCYTES (AUTO) 1.2 10^3/uL (0.1-1.4); ABSOLUTE NEUT (AUTO) 9.7 10^3/uL (1.7-8.2); BASOPHILS % (AUTO) 0.4 % (0-2); EOSINOPHILS % (AUTO) 1.8 % (0-6); HEMATOCRIT 39.3 % (37.9-51.0); HEMOGLOBIN 13.6 g/dL (13.5-17.0); HGB HCT DIFFERENCE 1.5; LYMPHOCYTES % (AUTO) 14.8 % (13-45); MEAN CORPUSCULAR HEMOGLOBIN 30.1 pg (27.0-33.4); MEAN CORPUSCULAR HGB CONC 34.5 g/dL (32.0-36.0); MEAN CORPUSCULAR VOLUME 87 fl (80-97); MONOCYTES % (AUTO) 8.9 % (3-13); RED BLOOD COUNT 4.51 10^6/uL (4.35-5.55); RED CELL DISTRIBUTION WIDTH 13.4 % (11.5-14.0); SEGMENTED NEUTROPHILS % (AUTO) 74.1 % (42-78); WHITE BLOOD COUNT 13.1 10^3/uL (4.0-10.5)
[2017-01-21] MEDS: METRONIDAZOLE 500 MG/NS RTU 100 ML IV SCH ×3 (06:13→21:28)
[2017-01-21] MEDS: LANSOPRAZOLE 30 MG TAB.RAP.DR PO SCH (06:13)
[2017-01-21 06:16] LABS: ANION GAP 12 (5-19); BLOOD UREA NITROGEN 12 mg/dL (7-20); CALCIUM 9.4 mg/dL (8.4-10.2); CARBON DIOXIDE 23 mmol/L (22-30); CHLORIDE 105 mmol/L (98-107); CREATININE RESULT 0.95 mg/dL (0.52-1.25); GLUCOSE 163 mg/dL (75-110); MAGNESIUM 1.9 mg/dL (1.6-2.3); POTASSIUM 4.2 mmol/L (3.6-5.0); SODIUM 140.2 mmol/L (137-145)
--- NOTE | 2017-01-21 07:13 | EKG REPORT ---
SEVERITY:- OTHERWISE NORMAL ECG - SINUS TACHYCARDIA : Confirmed by: Flory Orlando MD 21-Jan-2017 07:12:03
--- NOTE | 2017-01-21 11:09 | PDOC PROGRESS REPORT ---
Subjective Progress Note for:: 01/21/17 Subjective:: Patient reported persistence of diarrhea with about the same frequency but no more abdominal pain. No fever or chills. No difficulty with breathing or chest pain. Tolerating oral feeding. Physical Exam Vital Signs: Temp Pulse Resp BP Pulse Ox 98.5 F 88 17 110/67 97 01/21/17 04:09 01/21/17 07:00 01/21/17 04:09 01/21/17 04:09 01/21/17 04:09 Intake & Output 01/20/17 01/21/17 01/22/17 06:59 06:59 06:59 Intake Total 1070 Output Total 500 Balance 570 Weight 87.6 kg Physical Exam: General appearance: PRESENT: no acute distress, well-developed, well-nourished Head exam: PRESENT: atraumatic, normocephalic Eye exam: PRESENT: conjunctiva pink, EOMI, PERRLA. ABSENT: scleral icterus Mouth exam: PRESENT: moist, tongue midline Cardiovascular exam: PRESENT: RRR. ABSENT: diastolic murmur, rubs, systolic murmur GI/Abdominal exam: PRESENT: normal bowel sounds, soft. ABSENT: ascites, distended, tenderness, guarding, mass, Rawls's sign, organomegaly, rebound Neurological exam: PRESENT: alert, awake, oriented to person, oriented to place , oriented to time, oriented to situation, CN II-XII grossly intact. ABSENT: motor sensory deficit Psychiatric exam: PRESENT: appropriate affect, normal mood. ABSENT: homicidal ideation, suicidal ideation Skin exam: PRESENT: dry, intact, warm. ABSENT: cyanosis, rash Results Laboratory Results: 01/21/17 05:42 01/21/17 05:42 01/20/17 01/20/17 01/20/17 12:22 13:33 13:33 WBC 29.8 H RBC 4.95 Hgb 14.6 Hct 44.1 MCV 89 MCH 29.6 MCHC 33.2 RDW 13.1 Plt Count 296 Seg Neutrophils % Not Reportable Lymphocytes % Not Reportable Monocytes % Not Reportable Eosinophils % Not Reportable Basophils % Not Reportable Absolute Neutrophils Not Reportable Absolute Lymphocytes Not Reportable Absolute Monocytes Not Reportable Absolute Eosinophils Not Reportable Absolute Basophils Not Reportable Sodium 139.1 Potassium 3.3 L Chloride 102 Carbon Dioxide 24 Anion Gap 13 BUN 13 Creatinine 0.96 Est GFR ( Amer) > 60 Est GFR (Non-Af Amer) > 60 Glucose 134 H Calcium 10.0 Magnesium 1.6 Total Bilirubin 1.4 H AST 81 H ALT 111 H Alkaline Phosphatase 136 H Total Protein 7.4 Albumin 4.2 Urine Color Urine Appearance Urine pH Ur Specific [place] Urine Protein Urine Glucose (UA) Urine Ketones Urine Blood Urine Nitrite Ur Leukocyte Esterase Urine WBC (Auto) Urine RBC (Auto) Stool Occult Blood 01/20/17 01/20/17 01/21/17 15:10 15:10 05:42 WBC 13.1 H RBC 4.51 Hgb 13.6 Hct 39.3 MCV 87 MCH 30.1 MCHC 34.5 RDW 13.4 Plt Count 255 Seg Neutrophils % 74.1 Lymphocytes % 14.8 Monocytes % 8.9 Eosinophils % 1.8 Basophils % 0.4 Absolute Neutrophils 9.7 H Absolute Lymphocytes 1.9 Absolute Monocytes 1.2 Absolute Eosinophils 0.2 Absolute Basophils 0.0 Sodium Potassium Chloride Carbon Dioxide Anion Gap BUN Creatinine Est GFR ( Amer) Est GFR (Non-Af Amer) Glucose Calcium Magnesium Total Bilirubin AST ALT Alkaline Phosphatase Total Protein Albumin Urine Color YELLOW Urine Appearance SLIGHTLY-CLOUDY Urine pH 5.0 Ur Specific [place] 1.013 Urine Protein 100 H Urine Glucose (UA) NEGATIVE Urine Ketones NEGATIVE Urine Blood LARGE H Urine Nitrite NEGATIVE Ur Leukocyte Esterase NEGATIVE Urine WBC (Auto) 6 Urine RBC (Auto) 2 Stool Occult Blood POSITIVE 01/21/17 05:42 WBC RBC Hgb Hct MCV MCH MCHC RDW Plt Count Seg Neutrophils % Lymphocytes % Monocytes % Eosinophils % Basophils % Absolute Neutrophils Absolute Lymphocytes Absolute Monocytes Absolute Eosinophils Absolute Basophils Sodium 140.2 Potassium 4.2 Chloride 105 Carbon Dioxide 23 Anion Gap 12 BUN 12 Creatinine 0.95 Est GFR ( Amer) > 60 Est GFR (Non-Af Amer) > 60 Glucose 163 H Calcium 9.4 Magnesium 1.9 Total Bilirubin AST ALT Alkaline Phosphatase Total Protein Albumin Urine Color Urine Appearance Urine pH Ur Specific [place] Urine Protein Urine Glucose (UA) Urine Ketones Urine Blood Urine Nitrite Ur Leukocyte Esterase Urine WBC (Auto) Urine RBC (Auto) Stool Occult Blood Assessment & Plan - Diagnosis (1) C. difficile enteritis Is this a current diagnosis for this admission?: YesPlan: Continue IV Metronidazole and oral Vancocin coverage. Follow up on blood culture findings. (2) Diabetes mellitus type 2 in nonobese Is this a current diagnosis for this admission?: YesPlan: See attending physician orders. (3) HLD (hyperlipidemia) Qualifiers: Hyperlipidemia type: pure hypercholesterolemia Qualified Code(s): E78.00 - Pure hypercholesterolemia, unspecified; E78.0 - Pure hypercholesterolemia Is this a current diagnosis for this admission?: YesPlan: See attending physician orders. (4) Hypokalemia due to loss of potassium Is this a current diagnosis for this admission?: YesPlan: Improved electrolyte level. (5) Hypomagnesemia Is this a current diagnosis for this admission?: YesPlan: Improved electrolyte level. - Time Time Spent with patient: 25-34 minutes Medications reviewed and adjusted accordingly: Yes Anticipated discharge: Home Within: Other - Inpatient Certification Based on my medical assessment, after consideration of the patient's comorbidities, presenting symptoms, or acuity I expect that the services needed warrant INPATIENT care.: Yes I certify that my determination is in accordance with my understanding of Medicare's requirements for reasonable and necessary INPATIENT services [42 CFR 412.3e].: Yes Medical Necessity: Need Close Monitoring Due to Risk of Patient Decompensation, Need For IV Fluids, Need For Continuous Telemetry Monitoring, Need for IV Antibiotics, Risk of Complication if Not Cared For in Hospital - Plan Summary Plan Summary: See attending physician orders. Maintain on current antibiotic coverage and IV fluid support.
[2017-01-21] MEDS: METFORMIN HCL 850 MG TABLET PO SCH ×2 (14:41→19:33)
[2017-01-21] MEDS: MULTIVITAMIN TABLET PO SCH (14:45)
[2017-01-21] MEDS: ATORVASTATIN CALCIUM 10 MG TABLET PO SCH (21:28)
[2017-01-22] MEDS: VANCOMYCIN HCL INJ 500 MG VIAL PO SCH ×5 (00:41→23:17)
[2017-01-22 05:17] LABS: ABSOLUTE BASOPHILS # (AUTO) 0.1 10^3/uL (0.0-0.2); ABSOLUTE EOSINOPHILS # (AUTO) 0.2 10^3/uL (0.0-0.6); ABSOLUTE LYMPHOCYTES (AUTO) 1.9 10^3/uL (0.5-4.7); ABSOLUTE MONOCYTES (AUTO) 0.9 10^3/uL (0.1-1.4); ABSOLUTE NEUT (AUTO) 6.4 10^3/uL (1.7-8.2); BASOPHILS % (AUTO) 0.6 % (0-2); EOSINOPHILS % (AUTO) 2.2 % (0-6); HEMATOCRIT 38.7 % (37.9-51.0); HEMOGLOBIN 13.2 g/dL (13.5-17.0); HGB HCT DIFFERENCE 0.9; LYMPHOCYTES % (AUTO) 20.1 % (13-45); MEAN CORPUSCULAR HGB CONC 34.2 g/dL (32.0-36.0); MEAN CORPUSCULAR VOLUME 88 fl (80-97); MONOCYTES % (AUTO) 9.1 % (3-13); RED BLOOD COUNT 4.41 10^6/uL (4.35-5.55); RED CELL DISTRIBUTION WIDTH 13.5 % (11.5-14.0); WHITE BLOOD COUNT 9.5 10^3/uL (4.0-10.5)
[2017-01-22] MEDS: METRONIDAZOLE 500 MG/NS RTU 100 ML IV SCH ×3 (05:21→21:35)
[2017-01-22] MEDS: LANSOPRAZOLE 30 MG TAB.RAP.DR PO SCH (05:21)
[2017-01-22] MEDS: MULTIVITAMIN TABLET PO SCH (09:01)
[2017-01-22] MEDS: METFORMIN HCL 850 MG TABLET PO SCH ×2 (09:01→17:26)
[2017-01-22] MEDS ORDERED: NORMAL SALINE 1000 ML 1,000 ML IV PRN (11:58)
--- NOTE | 2017-01-22 12:00 | PDOC PROGRESS REPORT ---
Subjective Progress Note for:: 01/22/17 Subjective:: Patient is feeling much better this morning denied any abdominal pain no nausea no vomiting. Patient's diarrhea is also getting better. Patient's currently on Flagyl and vancomycin Physical Exam Vital Signs: Temp Pulse Resp BP Pulse Ox 98.4 F 85 12 125/81 99 01/22/17 08:00 01/22/17 08:00 01/22/17 08:00 01/22/17 08:00 01/22/17 08:00 Intake & Output 01/21/17 01/22/17 01/23/17 06:59 06:59 06:59 Intake Total 1070 3180 Output Total 500 Balance 570 3180 Weight 87.6 kg 86.6 kg General appearance: PRESENT: no acute distress, well-developed, well-nourished Head exam: PRESENT: atraumatic, normocephalic Eye exam: PRESENT: conjunctiva pink, EOMI, PERRLA. ABSENT: scleral icterus Ear exam: PRESENT: normal external ear exam Mouth exam: PRESENT: moist, tongue midline Neck exam: PRESENT: full ROM. ABSENT: carotid bruit, JVD, lymphadenopathy, thyromegaly Respiratory exam: PRESENT: clear to auscultation lena Cardiovascular exam: PRESENT: RRR. ABSENT: diastolic murmur, rubs, systolic murmur Pulses: PRESENT: normal dorsalis pedis pul, +2 pedal pulses bilateral Vascular exam: PRESENT: normal capillary refill GI/Abdominal exam: PRESENT: normal bowel sounds, soft. ABSENT: distended, guarding, mass, organolmegaly, rebound, tenderness Rectal exam: PRESENT: deferred Neurological exam: PRESENT: alert, awake, oriented to person, oriented to place , oriented to time, oriented to situation, CN II-XII grossly intact. ABSENT: motor sensory deficit Psychiatric exam: PRESENT: appropriate affect, normal mood. ABSENT: homicidal ideation, suicidal ideation Skin exam: PRESENT: dry, intact, warm. ABSENT: cyanosis, rash Results Laboratory Results: 01/22/17 04:29 01/21/17 05:42 01/22/17 04:29 WBC 9.5 RBC 4.41 Hgb 13.2 L Hct 38.7 MCV 88 MCH 30.0 MCHC 34.2 RDW 13.5 Plt Count 249 Seg Neutrophils % 68.0 Lymphocytes % 20.1 Monocytes % 9.1 Eosinophils % 2.2 Basophils % 0.6 Absolute Neutrophils 6.4 Absolute Lymphocytes 1.9 Absolute Monocytes 0.9 Absolute Eosinophils 0.2 Absolute Basophils 0.1 01/20/17 15:10 Clean Catch Midstream Urine Culture - Final NO GROWTH 2 DAYS Assessment & Plan - Diagnosis (1) C. difficile enteritis Is this a current diagnosis for this admission?: YesPlan: Continues the Flagyl and vancomycin (2) Diabetes mellitus type 2 in nonobese Is this a current diagnosis for this admission?: YesPlan: Continues current medications (3) HLD (hyperlipidemia) Qualifiers: Hyperlipidemia type: pure hypercholesterolemia Qualified Code(s): E78.00 - Pure hypercholesterolemia, unspecified; E78.0 - Pure hypercholesterolemia Is this a current diagnosis for this admission?: YesPlan: Stable - Time Time Spent with patient: 15-24 minutes Medications reviewed and adjusted accordingly: Yes Anticipated discharge: Home Within: Other - Inpatient Certification Medical Necessity: Need for IV Antibiotics 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
[2017-01-22] MEDS: ATORVASTATIN CALCIUM 10 MG TABLET PO SCH (21:35)
[2017-01-23 04:39] LABS: ABSOLUTE BASOPHILS # (AUTO) 0.1 10^3/uL (0.0-0.2); ABSOLUTE EOSINOPHILS # (AUTO) 0.2 10^3/uL (0.0-0.6); ABSOLUTE LYMPHOCYTES (AUTO) 2.1 10^3/uL (0.5-4.7); ABSOLUTE MONOCYTES (AUTO) 0.7 10^3/uL (0.1-1.4); ABSOLUTE NEUT (AUTO) 5.4 10^3/uL (1.7-8.2); BASOPHILS % (AUTO) 0.9 % (0-2); EOSINOPHILS % (AUTO) 2.5 % (0-6); HEMATOCRIT 38.9 % (37.9-51.0); HEMOGLOBIN 13.6 g/dL (13.5-17.0); HGB HCT DIFFERENCE 1.9; LYMPHOCYTES % (AUTO) 24.4 % (13-45); MEAN CORPUSCULAR HEMOGLOBIN 30.7 pg (27.0-33.4); MEAN CORPUSCULAR HGB CONC 34.9 g/dL (32.0-36.0); MEAN CORPUSCULAR VOLUME 88 fl (80-97); MONOCYTES % (AUTO) 8.7 % (3-13); RED BLOOD COUNT 4.42 10^6/uL (4.35-5.55); RED CELL DISTRIBUTION WIDTH 13.3 % (11.5-14.0); SEGMENTED NEUTROPHILS % (AUTO) 63.5 % (42-78); WHITE BLOOD COUNT 8.6 10^3/uL (4.0-10.5)
[2017-01-23 05:04] LABS: ANION GAP 9 (5-19); BLOOD UREA NITROGEN 9 mg/dL (7-20); CALCIUM 9.1 mg/dL (8.4-10.2); CARBON DIOXIDE 23 mmol/L (22-30); CHLORIDE 108 mmol/L (98-107); CREATININE RESULT 0.86 mg/dL (0.52-1.25); GLUCOSE 100 mg/dL (75-110); POTASSIUM 3.8 mmol/L (3.6-5.0); SODIUM 139.8 mmol/L (137-145)
[2017-01-23] MEDS: VANCOMYCIN HCL INJ 500 MG VIAL PO SCH ×4 (05:31→23:39)
[2017-01-23] MEDS: LANSOPRAZOLE 30 MG TAB.RAP.DR PO SCH (05:31)
[2017-01-23] MEDS: METRONIDAZOLE 500 MG/NS RTU 100 ML IV SCH ×3 (05:31→21:50)
[2017-01-23] MEDS: METFORMIN HCL 850 MG TABLET PO SCH ×2 (09:58→17:46)
[2017-01-23] MEDS: MULTIVITAMIN TABLET PO SCH (09:58)
[2017-01-23] MEDS ORDERED: MAG HYDROX/AL HYDROX/SIMETH SUSP 30 ML UDCUP PO PRN (10:47)
--- NOTE | 2017-01-23 10:51 | PDOC PROGRESS REPORT ---
Subjective Progress Note for:: 01/23/17 Subjective:: Patient is doing fair diarrhea all resolved. Patient is complaining some epigastric pain which is ongoing problem for the last 4 months according to the patient and the . Patient's denied any chest pain denied any shortness of the breath. Patient's denied any heart burning. Physical Exam Vital Signs: Temp Pulse Resp BP Pulse Ox 98.3 F 82 16 113/96 H 99 01/23/17 07:20 01/23/17 07:20 01/23/17 07:20 01/23/17 07:20 01/23/17 07:20 Intake & Output 01/22/17 01/23/17 01/24/17 06:59 06:59 06:59 Intake Total 3180 2193 Balance 3180 2193 Weight 86.6 kg General appearance: PRESENT: no acute distress, well-developed, well-nourished Head exam: PRESENT: atraumatic, normocephalic Eye exam: PRESENT: conjunctiva pink, EOMI, PERRLA. ABSENT: scleral icterus Ear exam: PRESENT: normal external ear exam Mouth exam: PRESENT: moist, tongue midline Neck exam: PRESENT: full ROM. ABSENT: carotid bruit, JVD, lymphadenopathy, thyromegaly Respiratory exam: PRESENT: clear to auscultation lena Cardiovascular exam: PRESENT: RRR. ABSENT: diastolic murmur, rubs, systolic murmur Pulses: PRESENT: normal dorsalis pedis pul, +2 pedal pulses bilateral Vascular exam: PRESENT: normal capillary refill GI/Abdominal exam: PRESENT: normal bowel sounds, soft. ABSENT: distended, guarding, mass, organolmegaly, rebound, tenderness Rectal exam: PRESENT: deferred Neurological exam: PRESENT: alert, awake, oriented to person, oriented to place , oriented to time, oriented to situation, CN II-XII grossly intact. ABSENT: motor sensory deficit Psychiatric exam: PRESENT: appropriate affect, normal mood. ABSENT: homicidal ideation, suicidal ideation Skin exam: PRESENT: dry, intact, warm. ABSENT: cyanosis, rash Results Laboratory Results: 01/23/17 04:16 01/23/17 04:16 01/23/17 01/23/17 04:16 04:16 WBC 8.6 RBC 4.42 Hgb 13.6 Hct 38.9 MCV 88 MCH 30.7 MCHC 34.9 RDW 13.3 Plt Count 228 Seg Neutrophils % 63.5 Lymphocytes % 24.4 Monocytes % 8.7 Eosinophils % 2.5 Basophils % 0.9 Absolute Neutrophils 5.4 Absolute Lymphocytes 2.1 Absolute Monocytes 0.7 Absolute Eosinophils 0.2 Absolute Basophils 0.1 Sodium 139.8 Potassium 3.8 Chloride 108 H Carbon Dioxide 23 Anion Gap 9 BUN 9 Creatinine 0.86 Est GFR ( Amer) > 60 Est GFR (Non-Af Amer) > 60 Glucose 100 Calcium 9.1 01/20/17 15:10 Clean Catch Midstream Urine Culture - Final NO GROWTH 2 DAYS Assessment & Plan - Diagnosis (1) C. difficile enteritis Is this a current diagnosis for this admission?: YesPlan: Continues the current medications (2) Diabetes mellitus type 2 in nonobese Is this a current diagnosis for this admission?: YesPlan: Continues current medications (3) HLD (hyperlipidemia) Qualifiers: Hyperlipidemia type: pure hypercholesterolemia Qualified Code(s): E78.00 - Pure hypercholesterolemia, unspecified; E78.0 - Pure hypercholesterolemia Is this a current diagnosis for this admission?: YesPlan: Stable (4) Epigastric pain Is this a current diagnosis for this admission?: YesPlan: Patient is already on a PPI and this is ongoing for 4 months problems will get the CT abdomen and pelvis start the patient on the Maalox. 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
--- NOTE | 2017-01-23 17:12 | EKG REPORT ---
SEVERITY:- NORMAL ECG - SINUS RHYTHM : Confirmed by: Flory Orlando MD 23-Jan-2017 17:11:45
[2017-01-23] MEDS: ATORVASTATIN CALCIUM 10 MG TABLET PO SCH (21:50)
[2017-01-24] MEDS: VANCOMYCIN HCL INJ 500 MG VIAL PO SCH (05:52)
[2017-01-24] MEDS: METRONIDAZOLE 500 MG/NS RTU 100 ML IV SCH (05:52)
[2017-01-24] MEDS: LANSOPRAZOLE 30 MG TAB.RAP.DR PO SCH (05:52)
[2017-01-24 06:18] LABS: ABSOLUTE EOSINOPHILS # (AUTO) 0.2 10^3/uL (0.0-0.6); ABSOLUTE LYMPHOCYTES (AUTO) 2.1 10^3/uL (0.5-4.7); ABSOLUTE MONOCYTES (AUTO) 0.8 10^3/uL (0.1-1.4); ABSOLUTE NEUT (AUTO) 5.4 10^3/uL (1.7-8.2); BASOPHILS % (AUTO) 0.5 % (0-2); EOSINOPHILS % (AUTO) 2.5 % (0-6); LYMPHOCYTES % (AUTO) 24.4 % (13-45); MEAN CORPUSCULAR HEMOGLOBIN 29.9 pg (27.0-33.4); MEAN CORPUSCULAR HGB CONC 34.2 g/dL (32.0-36.0); MEAN CORPUSCULAR VOLUME 87 fl (80-97); MONOCYTES % (AUTO) 9.4 % (3-13); RED BLOOD COUNT 4.69 10^6/uL (4.35-5.55); RED CELL DISTRIBUTION WIDTH 13.2 % (11.5-14.0); SEGMENTED NEUTROPHILS % (AUTO) 63.2 % (42-78); WHITE BLOOD COUNT 8.5 10^3/uL (4.0-10.5)
[2017-01-24 06:32] LABS: ANION GAP 7 (5-19); BLOOD UREA NITROGEN 10 mg/dL (7-20); CALCIUM 9.1 mg/dL (8.4-10.2); CARBON DIOXIDE 26 mmol/L (22-30); CHLORIDE 107 mmol/L (98-107); CREATININE RESULT 0.86 mg/dL (0.52-1.25); GLUCOSE 126 mg/dL (75-110); POTASSIUM 3.9 mmol/L (3.6-5.0); SODIUM 140.2 mmol/L (137-145)
[2017-01-24 08:26] VITALS: BP 127/82
[2017-01-24] MEDS: MULTIVITAMIN TABLET PO SCH (09:38)
[2017-01-24] MEDS: METFORMIN HCL 850 MG TABLET PO SCH (09:38)
--- NOTE | 2017-01-26 02:44 | PDOC DISCHARGE SUMMARY ---
General - Admit/Disc Date/PCP Admission Date/Primary Care Provider: 01/20/17 11:55 ROSSYNORRIS FINK Discharge Date: 01/24/17 - Discharge Diagnosis (1) C. difficile enteritis Is this a current diagnosis for this admission?: Yes (2) Diabetes mellitus type 2 in nonobese Is this a current diagnosis for this admission?: Yes (3) HLD (hyperlipidemia) Is this a current diagnosis for this admission?: Yes (4) Hypokalemia due to loss of potassium Is this a current diagnosis for this admission?: Yes (5) Hypomagnesemia Is this a current diagnosis for this admission?: Yes - Additional Information Resuscitation Status: Full Code Home Medications: Atorvastatin Calcium [Lipitor 10 mg Tablet] 10 mg PO QAM 01/20/17 Metformin HCl [Glucophage] 850 mg PO BID 01/20/17 Multivitamin [Daily Multiple Vitamin] 1 tab PO DAILY 01/20/17 History of Present Illness History of Present Illness: NATALEE PETERS is a 61 year old male known to my practice who presented to the office earlier today with acutely ill with listed complaints. Patient reported that he is feeling as he did when he was recently diagnosed with Clostridium difficile toxin colitis. He reported onset since yesterday. He localized pain to upper and mid lower abdominal region. He described pain as cramping. There is associated loss of appetite. Denied consumption of any unusual food or fluid. There is associated chills, fatigue, and generalized weakness. Patient reported associated rectal pain and burning sensation related to frequent bowel movement. His initial evaluation in the office revealed epigastric tenderness and significant leukocytosis. In view of these findings, he was advised hospitalization. Hospital Course Hospital Course: Patient responded well to combination therapy with IV Metronidazole and oral Vancocin coverage. His diarrhea and nausea with vomiting did resolved. Tolerated oral feeding with gradual advancement of consistency. No fever or chills. There is complete resolution of his presenting significant leukocytosis. Hospital stay was remarkable for complain of epigastric pain necessitating CT abdomen and pelvis that revealed mild hydronephrosis with 10mm renal calculi in the left UP junction region and sigmoid diverliculosis with evidence of inflammation. Patient reported complete resolution of presenting symptoms and agreeable to discharge home today. He will follow up in the office for further post hospitalization care as instructed upon discharge. He will need gradual tapering off oral Vancocin therapy due to his recurrent C.difficile colitis. He will need both EGD and Colonoscopy evaluation on outpatient bases upon completion of therapy for his ongoing acute medical problem, Physical Exam Vital Signs: Temp Pulse Resp BP Pulse Ox 98.1 F 81 16 127/82 H 100 01/24/17 08:00 01/24/17 08:00 01/24/17 08:00 01/24/17 08:00 01/24/17 08:00 Intake & Output 01/23/17 01/24/17 01/25/17 06:59 06:59 06:59 Intake Total 2193 2427 Output Total 200 Balance 2193 2227 Weight 87.2 kg Physical Exam: General appearance: PRESENT: no acute distress, well-developed, well-nourished Head exam: PRESENT: atraumatic, normocephalic Eye exam: PRESENT: conjunctiva pink, EOMI, PERRLA. ABSENT: scleral icterus Mouth exam: PRESENT: moist, tongue midline Cardiovascular exam: PRESENT: RRR. ABSENT: diastolic murmur, rubs, systolic murmur GI/Abdominal exam: PRESENT: normal bowel sounds, soft. ABSENT: ascites, distended, tenderness, guarding, mass, Rawls's sign, organomegaly, rebound Neurological exam: PRESENT: alert, awake, oriented to person, oriented to place , oriented to time, oriented to situation, CN II-XII grossly intact. ABSENT: motor sensory deficit Psychiatric exam: PRESENT: appropriate affect, normal mood. ABSENT: homicidal ideation, suicidal ideation Skin exam: PRESENT: dry, intact, warm. ABSENT: cyanosis, rash Results Laboratory Results: 01/24/17 06:06 01/24/17 06:06 01/24/17 01/24/17 06:06 06:06 WBC 8.5 RBC 4.69 Hgb 14.0 Hct 41.0 MCV 87 MCH 29.9 MCHC 34.2 RDW 13.2 Plt Count 209 Seg Neutrophils % 63.2 Lymphocytes % 24.4 Monocytes % 9.4 Eosinophils % 2.5 Basophils % 0.5 Absolute Neutrophils 5.4 Absolute Lymphocytes 2.1 Absolute Monocytes 0.8 Absolute Eosinophils 0.2 Absolute Basophils 0.0 Sodium 140.2 Potassium 3.9 Chloride 107 Carbon Dioxide 26 Anion Gap 7 BUN 10 Creatinine 0.86 Est GFR ( Amer) > 60 Est GFR (Non-Af Amer) > 60 Glucose 126 H Calcium 9.1 01/20/17 15:10 Stool - Stool - Final 01/20/17 15:10 Stool - Stool Stool Culture - Final NO SALMONELLA, SHIGELLA, CAMPYLOBACTER, OR E.COLI 0157 RECOVERED. NEGATIVE FOR SHIGA TOXINS 1&2. Impressions: Abdomen/Pelvis CT 01/23/17 00:00 IMPRESSION: 10 mm stone left UPJ. Mild hydronephrosis. Qualifiers PATEINT BEING DISCHARGED WITH ANY OF THE FOLLOWING DIAGNOSIS?: No Plan Discharge Plan: D/C home today with follow up office appointment as instructed upon discharge. I had extensive discussion with patient at bedside regard post discharge care and compliance with prescribed antibiotic. Time Spent: Less than 30 Minutes
== END 2017-01-24 10:31 | disposition home or self-care (01) | DRG 373 ==
LOC: 4S 11:55
PROVIDERS: ADMIT Internal Medicine Geriatric Medicine; ATTEND Internal Medicine Geriatric Medicine
DX: A04.7 Enterocolitis due to Clostridium difficile (principal); E11.9 Type 2 diabetes mellitus without complications; E78.5 Hyperlipidemia, unspecified; E87.6 Hypokalemia; E83.42 Hypomagnesemia; K21.9 Gastro-esophageal reflux disease without esophagitis; M19.90 Unspecified osteoarthritis, unspecified site; Z79.899 Other long term (current) drug therapy; Z79.84 Long term (current) use of oral hypoglycemic drugs; Z87.891 Personal history of nicotine dependence
CPT/HCPCS: 36415; 74176; 80048; 80053; 81001; 82272; 83735; 85025; 87040; 87045; 87086; 87205; 87493; 93005; 93010; J3370; J3475; J3490

== ENCOUNTER → 2017-06-07 | Outpatient (CLI) | payer OTHER ==
[2017-06-07 08:33] LABS: ALANINE AMINOTRANSFERASE 57 U/L (21-72); ALBUMIN 4.4 g/dL (3.5-5.0); ALKALINE PHOSPHATASE 113 U/L (38-126); ANION GAP 11 (5-19); ASPARTATE AMINO TRANSFERASE 34 U/L (17-59); BILIRUBIN,DIRECT 0.4 mg/dL (0.0-0.4); BILIRUBIN,TOTAL 0.8 mg/dL (0.2-1.3); BLOOD UREA NITROGEN 16 mg/dL (7-20); CARBON DIOXIDE 27 mmol/L (22-30); CHLORIDE 102 mmol/L (98-107); CHOLESTEROL 158.45 mg/dL (0-200); CREATININE RESULT 1.05 mg/dL (0.52-1.25); Direct HDL 44 mg/dL (>40); GLUCOSE 139 mg/dL (75-110); POTASSIUM 4.6 mmol/L (3.6-5.0); SODIUM 140.3 mmol/L (137-145); TOTAL PROTEIN 7.4 g/dL (6.3-8.2); TRIGLYCERIDES 116 mg/dL (<150)
[2017-06-07 08:44] LABS: DIRECT LDL 91 mg/dL (<100)
== END ==
LOC: OD 07:11
PROVIDERS: ATTEND Internal Medicine Geriatric Medicine
DX: E11.65 Type 2 diabetes mellitus with hyperglycemia (principal)
CPT/HCPCS: 36415; 80053; 80061

== ENCOUNTER 2017-07-20 17:23 | Inpatient (IN) | payer OTHER ==
[2017-07-20] MEDS: NORMAL SALINE 1000 ML 1,000 ML IV PRN (18:50)
[2017-07-20] MEDS: ONDANSETRON HCL INJ/PF 4 MG/2 ML SDV IV PRN (19:30)
[2017-07-20 20:50] LABS: ABSOLUTE LYMPHOCYTES (AUTO) 1.2 10^3/uL (0.5-4.7); ABSOLUTE MONOCYTES (AUTO) 0.6 10^3/uL (0.1-1.4); ABSOLUTE NEUT (AUTO) 14.4 10^3/uL (1.7-8.2); BASOPHILS % (AUTO) 0.2 % (0-2); HEMATOCRIT 43.5 % (37.9-51.0); HEMOGLOBIN 15.6 g/dL (13.5-17.0); HGB HCT DIFFERENCE 3.3; LYMPHOCYTES % (AUTO) 7.6 % (13-45); MEAN CORPUSCULAR HEMOGLOBIN 31.4 pg (27.0-33.4); MEAN CORPUSCULAR HGB CONC 35.8 g/dL (32.0-36.0); MEAN CORPUSCULAR VOLUME 88 fl (80-97); MONOCYTES % (AUTO) 3.7 % (3-13); RED BLOOD COUNT 4.95 10^6/uL (4.35-5.55); RED CELL DISTRIBUTION WIDTH 12.3 % (11.5-14.0); SEGMENTED NEUTROPHILS % (AUTO) 88.5 % (42-78); WHITE BLOOD COUNT 16.3 10^3/uL (4.0-10.5)
[2017-07-20 20:52] LABS: AMORPHOUS SEDIMENT,URINE TRACE /HPF; APPEARANCE,URINE SLIGHTLY-CLOUDY; BILIRUBIN,URINE NEGATIVE (NEGATIVE); GLUCOSE, URINE 50 mg/dL (NEGATIVE); KETONES,URINE NEGATIVE (NEGATIVE); LEUKOCYTE ESTERASE,URINE NEGATIVE (NEGATIVE); NITRITE,URINE NEGATIVE (NEGATIVE); PROTEIN,URINE 100 mg/dL (NEGATIVE); UROBILINOGEN,URINE NEGATIVE mg/dL (<2.0)
[2017-07-20 21:06] LABS: ALANINE AMINOTRANSFERASE 61 U/L (21-72); ALBUMIN 4.9 g/dL (3.5-5.0); ALKALINE PHOSPHATASE 136 U/L (38-126); ANION GAP 19 (5-19); ASPARTATE AMINO TRANSFERASE 31 U/L (17-59); BILIRUBIN,DIRECT 0.4 mg/dL (0.0-0.4); BLOOD UREA NITROGEN 18 mg/dL (7-20); CALCIUM 10.1 mg/dL (8.4-10.2); CARBON DIOXIDE 25 mmol/L (22-30); CHLORIDE 97 mmol/L (98-107); CREATININE RESULT 1.22 mg/dL (0.52-1.25); GLUCOSE 187 mg/dL (75-110); POTASSIUM 4.4 mmol/L (3.6-5.0); TOTAL PROTEIN 8.1 g/dL (6.3-8.2)
--- NOTE | 2017-07-20 21:40 | RADIOLOGY REPORT (SQ) ---
EXAM DESCRIPTION: ABDOMEN 2 VIEWS COMPLETED DATE/TIME: 07/20/2017 9:07 pm REASON FOR STUDY: GASTROENTERITIS WITH NAUSEA AND VOMITING COMPARISON: Abdominal CT scan dated January 2017 NUMBER OF VIEWS: Two views. TECHNIQUE: Supine and erect/decubitus radiographic images of the abdomen acquired. LIMITATIONS: None. FINDINGS: FREE AIR: None. No abnormal gas collections. LUNG BASES: Clear. BOWEL GAS PATTERN: Nonobstructive pattern. No dilated loops or air fluid levels. CALCIFICATIONS: Calcific density is identified at the level of the L4 transverse process on the left consistent with a ureteric calculus which was present on the previous CT scan. Small left renal calc johnny are identified. SOFT TISSUES: No gross mass or suggestion of organomegaly. HARDWARE: None in the abdomen. BONES: No acute fracture. No worrisome bone lesions. OTHER: No other significant finding. IMPRESSION: Nonspecific intestinal bowel gas pattern as noted above. Left ureteric calculus as note d above. Small left renal calculi. Other findings as noted above. TECHNICAL DOCUMENTATION: JOB ID: [id number]- All Rights Reserved
--- NOTE | 2017-07-20 21:41 | RADIOLOGY REPORT (SQ) ---
EXAM DESCRIPTION: CHEST PA/LAT COMPLETED DATE/TIME: 07/20/2017 9:07 pm REASON FOR STUDY: GASTROENTERITIS WITH NAUSEA AND VOMITING COMPARISON: None. EXAM PARAMETERS: NUMBER OF VIEWS: two views TECHNIQUE: Digital Frontal and Lateral radiographic views of the chest acquired. RADIATION DOSE: NA LIMITATIONS: none FINDINGS: LUNGS AND PLEURA: No opacities, masses or pneumothorax. No pleural effusion. Chronic appe aring interstitial changes are identified. MEDIASTINUM AND HILAR STRUCTURES: No masses or contour abnormalities. HEART AND VASCULAR STRUCTURES: Heart normal size. No evidence for failure. BONES: No acute findings. HARDWARE: None in the chest. OTHER: No other significant finding. IMPRESSION: NO SIGNIFICANT RADIOGRAPHIC FINDING IN THE CHEST. TECHNICAL DOCUMENTATION: JOB ID: [id number] [employer]- All Rights Reserved
[2017-07-20] MEDS: CIPROFLOXACIN 400 MG/D5W RTU 400 MG/200 ML RTUPB IV SCH (21:57)
[2017-07-20] MEDS: ATORVASTATIN CALCIUM 10 MG TABLET PO SCH (21:58)
[2017-07-21] MEDS: METFORMIN HCL 850 MG TABLET PO SCH ×2 (08:50→17:51)
[2017-07-21] MEDS: CIPROFLOXACIN 400 MG/D5W RTU 400 MG/200 ML RTUPB IV SCH ×2 (10:22→21:40)
[2017-07-21] MEDS: MULTIVITAMIN TABLET PO SCH (10:22)
[2017-07-21] MEDS: RAMIPRIL 10 MG CAPSULE PO SCH (10:23)
[2017-07-21] MEDS: ONDANSETRON HCL INJ/PF 4 MG/2 ML SDV IV PRN (10:27)
[2017-07-21] MEDS: PROCHLORPERAZINE MALEATE 5 MG TABLET PO PRN ×2 (14:58→21:40)
--- NOTE | 2017-07-21 20:24 | PDOC H&P ---
History of Present Illness Admission Date/PCP: 07/20/17 17:23 [facility] Patient complains of: Nausea, vomiting, diarrhea History of Present Illness: NATALEE PETERS is a 61 year old male known to my practice who walked in today with listed complaints. Patient reported onset of nausea night before coming to the office with several associate vomiting and eventually had episodes of diarrhea prior to coming to the office. Patient reported associated left lower quadrant abdominal pain that radiate into his left side. he reported associated fever and chills. no chest pain or difficulty with breathing. Patient has history for C. difficile colitis with prior management on tapering dose regimen of Vancomycin therapy. His laboratory evaluation did revealed leukocytosis with left shift necessitating recommendation for hospitalization. Past Medical History Cardiac Medical History: Reports: Hyperlipidema Endocrine Medical History: Reports: Diabetes Mellitus Type 2 GI Medical History: Reports: Diverticulitis, Gastroesophageal Reflux Disease Musculoskeltal Medical History: Reports: Arthritis Psychiatric Medical History: Denies: Depression Social History Smoking Status: Former Smoker Number of Years Smokin Last Time Smoked: 5 years ago Frequency of Alcohol Use: Rare Hx Recreational Drug Use: No Drugs: None Hx Prescription Drug Abuse: No - Advance Directive Resuscitation Status: Full Code Family History Family History: Reviewed & Not Pertinent Parental Family History Reviewed: Yes Children Family History Reviewed: Yes Sibling(s) Family History Reviewed.: Yes Medication/Allergy Home Medications: Atorvastatin Calcium [Lipitor 10 mg Tablet] 10 mg PO QHS 01/20/17 Metformin HCl [Glucophage] 850 mg PO BID 01/20/17 Multivitamin [Daily Multiple Vitamin] 1 tab PO DAILY 01/20/17 Ramipril [Altace] 10 mg PO DAILY 07/20/17 Allergies/Adverse Reactions: No Known Allergies Allergy (Unverified 10/25/16 19:40) Review of Systems Constitutional: ABSENT: chills, fever(s), headache(s), weight gain, weight loss Eyes: PRESENT: visual disturbances - wear corrective glasses Ears: ABSENT: hearing changes Nose, Mouth, and Throat: ABSENT: as per HPI, headache(s), mouth pain, sore throat, vertigo, other Cardiovascular: ABSENT: chest pain, dyspnea on exertion, edema, orthropnea, palpitations Respiratory: ABSENT: cough, hemoptysis Gastrointestinal: PRESENT: abdominal pain, diarrhea, nausea, vomiting Genitourinary: ABSENT: dysuria, hematuria Musculoskeletal: PRESENT: deformity - related to arthritis involvement. Neurological: ABSENT: abnormal gait, abnormal speech, confusion, dizziness, focal weakness, syncope Psychiatric: ABSENT: anxiety, depression, homidical ideation, suicidal ideation Endocrine: ABSENT: cold intolerance, heat intolerance, polydipsia, polyuria Hematologic/Lymphatic: ABSENT: easy bleeding, easy bruising, lymphadenopathy Allergic/Immunologic: ABSENT: seasonal rhinorrhea Physical Exam Vital Signs: Temp Pulse Resp BP Pulse Ox 98.1 F 97 19 136/76 H 96 07/21/17 15:05 07/21/17 15:05 07/21/17 15:05 07/21/17 15:05 07/21/17 15:05 Intake & Output 07/20/17 07/21/17 07/22/17 06:59 06:59 06:59 Intake Total 1202 1466 Balance 1202 1466 Weight 94.602 kg General appearance: PRESENT: no acute distress, cooperative Head exam: PRESENT: atraumatic, normocephalic Eye exam: PRESENT: conjunctiva pink, EOMI, PERRLA. ABSENT: scleral icterus Ear exam: PRESENT: normal external ear exam Mouth exam: PRESENT: moist, tongue midline Throat exam: ABSENT: post pharyngeal erythema, tonsillar erythema, tonsillar exudate, tonsillogmegaly, other Neck exam: PRESENT: full ROM. ABSENT: carotid bruit, JVD, lymphadenopathy, thyromegaly Respiratory exam: PRESENT: clear to auscultation lena Cardiovascular exam: PRESENT: RRR. ABSENT: diastolic murmur, rubs, systolic murmur Pulses: PRESENT: normal dorsalis pedis pul, +2 pedal pulses bilateral Vascular exam: PRESENT: normal capillary refill. ABSENT: pallor GI/Abdominal exam: PRESENT: normal bowel sounds, soft, tenderness - mild intensity to deep palpation. ABSENT: distended, guarding, mass, organolmegaly, rebound Rectal exam: PRESENT: deferred Musculoskeletal exam: PRESENT: deformity - related to multiple joints involvement with arthritis Neurological exam: PRESENT: alert, awake, oriented to person, oriented to place , oriented to time, oriented to situation, CN II-XII grossly intact. ABSENT: motor sensory deficit Psychiatric exam: PRESENT: appropriate affect, normal mood. ABSENT: homicidal ideation, suicidal ideation Skin exam: PRESENT: dry, intact, warm. ABSENT: cyanosis, rash Results Laboratory Results: 07/20/17 20:30 07/20/17 20:30 07/20/17 07/20/17 07/20/17 20:01 20:30 20:30 WBC 16.3 H RBC 4.95 Hgb 15.6 Hct 43.5 MCV 88 MCH 31.4 MCHC 35.8 RDW 12.3 Plt Count 298 Seg Neutrophils % 88.5 H Lymphocytes % 7.6 L Monocytes % 3.7 Eosinophils % 0.0 Basophils % 0.2 Absolute Neutrophils 14.4 H Absolute Lymphocytes 1.2 Absolute Monocytes 0.6 Absolute Eosinophils 0.0 Absolute Basophils 0.0 Sodium 141.0 Potassium 4.4 Chloride 97 L Carbon Dioxide 25 Anion Gap 19 BUN 18 Creatinine 1.22 Est GFR ( Amer) > 60 Est GFR (Non-Af Amer) > 60 Glucose 187 H Calcium 10.1 Total Bilirubin 1.0 AST 31 ALT 61 Alkaline Phosphatase 136 H Total Protein 8.1 Albumin 4.9 Urine Color YELLOW Urine Appearance SLIGHTLY-CLOUDY Urine pH 5.0 Ur Specific [place] 1.020 Urine Protein 100 H Urine Glucose (UA) 50 H Urine Ketones NEGATIVE Urine Blood LARGE H Urine Nitrite NEGATIVE Ur Leukocyte Esterase NEGATIVE Urine WBC (Auto) 8 Urine RBC (Auto) 111 Impressions: Abdomen X-Ray 07/20/17 00:00 IMPRESSION: Nonspecific intestinal bowel gas pattern as noted above. Left ureteric calculus as noted above. Small left renal calculi. Other findings as noted above. Chest X-Ray 07/20/17 00:00 IMPRESSION: NO SIGNIFICANT RADIOGRAPHIC FINDING IN THE CHEST. Assessment & Plan - Diagnosis (1) Gastroenteritis, acute Is this a current diagnosis for this admission?: Yes Plan: See admitting physician orders. (2) Tachycardia Is this a current diagnosis for this admission?: Yes Plan: See admitting physician orders. (3) Diabetes mellitus type 2 in nonobese Is this a current diagnosis for this admission?: Yes Plan: See admitting physician orders. (4) HTN (hypertension) Qualifiers: Hypertension type: essential hypertension Qualified Code(s): I10 - Essential (primary) hypertension Is this a current diagnosis for this admission?: Yes Plan: See admitting physician orders. (5) HLD (hyperlipidemia) Qualifiers: Hyperlipidemia type: pure hypercholesterolemia Qualified Code(s): E78.00 - Pure hypercholesterolemia, unspecified Is this a current diagnosis for this admission?: Yes Plan: See admitting physician orders. (6) GERD (gastroesophageal reflux disease) Qualifiers: Esophagitis presence: without esophagitis Qualified Code(s): K21.9 - Gastro -esophageal reflux disease without esophagitis Is this a current diagnosis for this admission?: Yes Plan: See admitting physician orders. - Time Time Spent: 50 to 70 Minutes Medications reviewed and adjusted accordingly: Yes Anticipated discharge: Home Within: within 48 hours - Plan Summary Plan Summary: See admitting physician orders. Delayed entry due to downtime on [employer] system.
--- NOTE | 2017-07-21 20:43 | PDOC PROGRESS REPORT ---
Subjective Progress Note for:: 07/21/17 Subjective:: Patient continue to experience nausea without vomiting. No reported diarrhea. There is persistent of slight left flank abdominal pain. No chest pain or difficulty with breathing. Patient reported poor sleep and requesting for something to aide his sleep tonight. Physical Exam Vital Signs: Temp Pulse Resp BP Pulse Ox 98.1 F 97 19 136/76 H 96 07/21/17 15:05 07/21/17 15:05 07/21/17 15:05 07/21/17 15:05 07/21/17 15:05 Intake & Output 07/20/17 07/21/17 07/22/17 06:59 06:59 06:59 Intake Total 1202 1466 Balance 1202 1466 Weight 94.602 kg General appearance: PRESENT: no acute distress, cooperative Head exam: PRESENT: atraumatic, normocephalic Eye exam: PRESENT: conjunctiva pink, EOMI, PERRLA. ABSENT: scleral icterus Mouth exam: PRESENT: moist Respiratory exam: PRESENT: clear to auscultation lena Cardiovascular exam: PRESENT: RRR. ABSENT: diastolic murmur, rubs, systolic murmur Vascular exam: PRESENT: normal capillary refill. ABSENT: pallor GI/Abdominal exam: PRESENT: normal bowel sounds, soft, tenderness - LLQ region to deep palpation. ABSENT: distended, guarding, mass, organolmegaly, rebound Extremities exam: ABSENT: pedal edema Musculoskeletal exam: PRESENT: deformity - related to multiple joints involvement with arthritis. Neurological exam: PRESENT: alert, awake, oriented to person, oriented to place , oriented to time, oriented to situation, CN II-XII grossly intact. ABSENT: motor sensory deficit Psychiatric exam: PRESENT: appropriate affect, normal mood. ABSENT: homicidal ideation, suicidal ideation Skin exam: PRESENT: dry, intact, warm. ABSENT: cyanosis, rash Results Laboratory Results: 07/20/17 20:30 07/20/17 20:30 07/20/17 07/20/17 07/20/17 20:01 20:30 20:30 WBC 16.3 H RBC 4.95 Hgb 15.6 Hct 43.5 MCV 88 MCH 31.4 MCHC 35.8 RDW 12.3 Plt Count 298 Seg Neutrophils % 88.5 H Lymphocytes % 7.6 L Monocytes % 3.7 Eosinophils % 0.0 Basophils % 0.2 Absolute Neutrophils 14.4 H Absolute Lymphocytes 1.2 Absolute Monocytes 0.6 Absolute Eosinophils 0.0 Absolute Basophils 0.0 Sodium 141.0 Potassium 4.4 Chloride 97 L Carbon Dioxide 25 Anion Gap 19 BUN 18 Creatinine 1.22 Est GFR ( Amer) > 60 Est GFR (Non-Af Amer) > 60 Glucose 187 H Calcium 10.1 Total Bilirubin 1.0 AST 31 ALT 61 Alkaline Phosphatase 136 H Total Protein 8.1 Albumin 4.9 Urine Color YELLOW Urine Appearance SLIGHTLY-CLOUDY Urine pH 5.0 Ur Specific [place] 1.020 Urine Protein 100 H Urine Glucose (UA) 50 H Urine Ketones NEGATIVE Urine Blood LARGE H Urine Nitrite NEGATIVE Ur Leukocyte Esterase NEGATIVE Urine WBC (Auto) 8 Urine RBC (Auto) 111 Impressions: Abdomen X-Ray 07/20/17 00:00 IMPRESSION: Nonspecific intestinal bowel gas pattern as noted above. Left ureteric calculus as noted above. Small left renal calculi. Other findings as noted above. Chest X-Ray 07/20/17 00:00 IMPRESSION: NO SIGNIFICANT RADIOGRAPHIC FINDING IN THE CHEST. Assessment & Plan - Diagnosis (1) Complicated urinary tract infection Is this a current diagnosis for this admission?: Yes Plan: Continue IV Ciprofloxacin coverage. Maintain on IV fluid hydration. Obtain CBC with diff BMP in AM. (2) Left ureteral calculus Is this a current diagnosis for this admission?: Yes Plan: Continue IV Ciprofloxacin coverage. Maintain on IV fluid hydration. (3) Renal calculus, left Is this a current diagnosis for this admission?: Yes Plan: Continue IV Ciprofloxacin coverage. Maintain on IV fluid hydration. (4) Gastroenteritis, acute Is this a current diagnosis for this admission?: Yes (5) Tachycardia Is this a current diagnosis for this admission?: Yes Plan: Improving. Maintain on IV fluid support. (6) Diabetes mellitus type 2 in nonobese Is this a current diagnosis for this admission?: Yes Plan: Start on accuchek and Humalog insulin sliding scale coverage. (7) HTN (hypertension) Qualifiers: Hypertension type: essential hypertension Qualified Code(s): I10 - Essential (primary) hypertension Is this a current diagnosis for this admission?: Yes Plan: Maintain on current medication management. (8) HLD (hyperlipidemia) Qualifiers: Hyperlipidemia type: pure hypercholesterolemia Qualified Code(s): E78.00 - Pure hypercholesterolemia, unspecified Is this a current diagnosis for this admission?: Yes Plan: Maintain on current medication management. (9) GERD (gastroesophageal reflux disease) Qualifiers: Esophagitis presence: without esophagitis Qualified Code(s): K21.9 - Gastro -esophageal reflux disease without esophagitis Is this a current diagnosis for this admission?: Yes Plan: Maintain on current medication management. - Time Time Spent with patient: 25-34 minutes Anticipated discharge: Home - Inpatient Certification Based on my medical assessment, after consideration of the patient's comorbidities, presenting symptoms, or acuity I expect that the services needed warrant INPATIENT care.: Yes I certify that my determination is in accordance with my understanding of Medicare's requirements for reasonable and necessary INPATIENT services [42 CFR 412.3e].: Yes Medical Necessity: Need Close Monitoring Due to Risk of Patient Decompensation, Need For IV Fluids, Need For Continuous Telemetry Monitoring, Need for IV Antibiotics, Risk of Complication if Not Cared For in Hospital 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 I will change his admission status to full admission. I am concern about his acute abdominal X ray finding with left renal and ureteric calculi. In view of his persistent nausea and associated leukocytosis he will need more than 2 nights of hospital stay
[2017-07-21] MEDS: ZOLPIDEM TARTRATE 5 MG TABLET PO PRN (21:40)
[2017-07-21] MEDS: ATORVASTATIN CALCIUM 10 MG TABLET PO SCH (21:40)
[2017-07-22 06:13] LABS: ABSOLUTE BASOPHILS # (AUTO) 0.1 10^3/uL (0.0-0.2); ABSOLUTE EOSINOPHILS # (AUTO) 0.1 10^3/uL (0.0-0.6); ABSOLUTE LYMPHOCYTES (AUTO) 2.5 10^3/uL (0.5-4.7); ABSOLUTE MONOCYTES (AUTO) 1.2 10^3/uL (0.1-1.4); ABSOLUTE NEUT (AUTO) 7.3 10^3/uL (1.7-8.2); BASOPHILS % (AUTO) 0.6 % (0-2); HEMATOCRIT 40.5 % (37.9-51.0); HEMOGLOBIN 14.4 g/dL (13.5-17.0); HGB HCT DIFFERENCE 2.7; LYMPHOCYTES % (AUTO) 22.1 % (13-45); MEAN CORPUSCULAR HEMOGLOBIN 31.2 pg (27.0-33.4); MEAN CORPUSCULAR HGB CONC 35.5 g/dL (32.0-36.0); MEAN CORPUSCULAR VOLUME 88 fl (80-97); MONOCYTES % (AUTO) 10.8 % (3-13); RED BLOOD COUNT 4.61 10^6/uL (4.35-5.55); RED CELL DISTRIBUTION WIDTH 12.1 % (11.5-14.0); SEGMENTED NEUTROPHILS % (AUTO) 65.5 % (42-78); WHITE BLOOD COUNT 11.1 10^3/uL (4.0-10.5)
[2017-07-22 06:40] LABS: ALANINE AMINOTRANSFERASE 57 U/L (21-72); ALKALINE PHOSPHATASE 117 U/L (38-126); ANION GAP 15 (5-19); ASPARTATE AMINO TRANSFERASE 35 U/L (17-59); BILIRUBIN,DIRECT 0.5 mg/dL (0.0-0.4); BILIRUBIN,TOTAL 1.1 mg/dL (0.2-1.3); BLOOD UREA NITROGEN 21 mg/dL (7-20); CALCIUM 9.1 mg/dL (8.4-10.2); CARBON DIOXIDE 25 mmol/L (22-30); CHLORIDE 101 mmol/L (98-107); CREATININE RESULT 1.44 mg/dL (0.52-1.25); GLUCOSE 136 mg/dL (75-110); SODIUM 140.6 mmol/L (137-145); TOTAL PROTEIN 6.9 g/dL (6.3-8.2)
[2017-07-22] MEDS: MULTIVITAMIN TABLET PO SCH (09:38)
[2017-07-22] MEDS: RAMIPRIL 10 MG CAPSULE PO SCH (09:38)
[2017-07-22] MEDS: METFORMIN HCL 850 MG TABLET PO SCH ×2 (09:38→16:18)
[2017-07-22] MEDS: CIPROFLOXACIN 400 MG/D5W RTU 400 MG/200 ML RTUPB IV SCH ×2 (09:39→21:59)
--- NOTE | 2017-07-22 17:37 | PDOC PROGRESS REPORT ---
Subjective Progress Note for:: 07/22/17 Subjective:: Patient denied any nausea, vomiting or abdominal pain so far today. Appetite and P.O intake remain fair. No chest pain or difficulty with breathing. No fever or chill. Physical Exam Vital Signs: Temp Pulse Resp BP Pulse Ox 98.7 F 86 20 122/75 98 07/22/17 15:40 07/22/17 15:40 07/22/17 15:40 07/22/17 15:40 07/22/17 15:40 Intake & Output 07/21/17 07/22/17 07/23/17 06:59 06:59 06:59 Intake Total 1202 3572 Balance 1202 3572 Weight 94.602 kg Physical Exam: General appearance: PRESENT: no acute distress, cooperative Head exam: PRESENT: atraumatic, normocephalic Eye exam: PRESENT: conjunctiva pink, EOMI, PERRLA. ABSENT: scleral icterus Mouth exam: PRESENT: moist Respiratory exam: PRESENT: clear to auscultation lena Cardiovascular exam: PRESENT: RRR. ABSENT: diastolic murmur, rubs, systolic murmur Vascular exam: PRESENT: normal capillary refill. ABSENT: pallor GI/Abdominal exam: PRESENT: normal bowel sounds, soft ABSENT: distended, tenderness, guarding, mass, organomegaly, rebound Extremities exam: ABSENT: pedal edema Musculoskeletal exam: PRESENT: deformity - related to multiple joints involvement with arthritis. Neurological exam: PRESENT: alert, awake, oriented to person, oriented to place , oriented to time, oriented to situation, CN II-XII grossly intact. ABSENT: motor sensory deficit Psychiatric exam: PRESENT: appropriate affect, normal mood. ABSENT: homicidal ideation, suicidal ideation Skin exam: PRESENT: dry, intact, warm. ABSENT: cyanosis, rash Results Laboratory Results: 07/22/17 05:05 07/22/17 05:05 07/22/17 07/22/17 05:05 05:05 WBC 11.1 H RBC 4.61 Hgb 14.4 Hct 40.5 MCV 88 MCH 31.2 MCHC 35.5 RDW 12.1 Plt Count 248 Seg Neutrophils % 65.5 Lymphocytes % 22.1 Monocytes % 10.8 Eosinophils % 1.0 Basophils % 0.6 Absolute Neutrophils 7.3 Absolute Lymphocytes 2.5 Absolute Monocytes 1.2 Absolute Eosinophils 0.1 Absolute Basophils 0.1 Sodium 140.6 Potassium 4.0 Chloride 101 Carbon Dioxide 25 Anion Gap 15 BUN 21 H Creatinine 1.44 H Est GFR ( Amer) > 60 Est GFR (Non-Af Amer) 50 L Glucose 136 H Calcium 9.1 Total Bilirubin 1.1 AST 35 ALT 57 Alkaline Phosphatase 117 Total Protein 6.9 Albumin 4.0 07/20/17 20:01 Clean Catch Midstream Urine Culture - Final NO GROWTH 2 DAYS Impressions: Abdomen X-Ray 07/20/17 00:00 IMPRESSION: Nonspecific intestinal bowel gas pattern as noted above. Left ureteric calculus as noted above. Small left renal calculi. Other findings as noted above. Chest X-Ray 07/20/17 00:00 IMPRESSION: NO SIGNIFICANT RADIOGRAPHIC FINDING IN THE CHEST. Assessment & Plan - Diagnosis (1) Complicated urinary tract infection Is this a current diagnosis for this admission?: Yes Plan: Improved leukocytosis. I will continue IV Ciprofloxacin coverage and IV fluid hydration. Emcourage increase oral fuid intake. Repeat BMP in am. (2) Left ureteral calculus Is this a current diagnosis for this admission?: Yes (3) Renal calculus, left Is this a current diagnosis for this admission?: Yes (4) Gastroenteritis, acute Is this a current diagnosis for this admission?: Yes (5) Tachycardia Is this a current diagnosis for this admission?: Yes (6) Diabetes mellitus type 2 in nonobese Is this a current diagnosis for this admission?: Yes (7) HTN (hypertension) Qualifiers: Hypertension type: essential hypertension Qualified Code(s): I10 - Essential (primary) hypertension Is this a current diagnosis for this admission?: Yes (8) HLD (hyperlipidemia) Qualifiers: Hyperlipidemia type: pure hypercholesterolemia Qualified Code(s): E78.00 - Pure hypercholesterolemia, unspecified Is this a current diagnosis for this admission?: Yes (9) GERD (gastroesophageal reflux disease) Qualifiers: Esophagitis presence: without esophagitis Qualified Code(s): K21.9 - Gastro -esophageal reflux disease without esophagitis Is this a current diagnosis for this admission?: Yes - Time Time Spent with patient: 25-34 minutes Medications reviewed and adjusted accordingly: Yes Anticipated discharge: Home Within: Other - Inpatient Certification Based on my medical assessment, after consideration of the patient's comorbidities, presenting symptoms, or acuity I expect that the services needed warrant INPATIENT care.: Yes I certify that my determination is in accordance with my understanding of Medicare's requirements for reasonable and necessary INPATIENT services [42 CFR 412.3e].: Yes Medical Necessity: Need Close Monitoring Due to Risk of Patient Decompensation, Need For IV Fluids, Need For Continuous Telemetry Monitoring, Need for IV Antibiotics, Risk of Complication if Not Cared For in Hospital 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
[2017-07-22] MEDS ORDERED: INSULIN LISPRO 100 UNIT/ML 3 ML VIAL SUBCUT PRN (18:17)
[2017-07-22] MEDS ORDERED: DEXTROSE 40% GEL 15 GM TUBE PO PRN ×2 (18:17)
[2017-07-22] MEDS ORDERED: GLUCAGON,HUMAN RECOMB 1 MG INJ IM PRN (18:17)
[2017-07-22] MEDS ORDERED: DEXTROSE 50%-WATER 25 GM/50 ML DISP.SYRIN IV PRN ×2 (18:17)
[2017-07-22] MEDS: ZOLPIDEM TARTRATE 5 MG TABLET PO PRN (21:59)
[2017-07-22] MEDS: ATORVASTATIN CALCIUM 10 MG TABLET PO SCH (21:59)
[2017-07-23] MEDS: NORMAL SALINE 1000 ML 1,000 ML IV PRN (03:42)
[2017-07-23 05:13] LABS: ABSOLUTE BASOPHILS # (AUTO) 0.1 10^3/uL (0.0-0.2); ABSOLUTE EOSINOPHILS # (AUTO) 0.2 10^3/uL (0.0-0.6); ABSOLUTE LYMPHOCYTES (AUTO) 2.4 10^3/uL (0.5-4.7); ABSOLUTE MONOCYTES (AUTO) 1.1 10^3/uL (0.1-1.4); ABSOLUTE NEUT (AUTO) 6.5 10^3/uL (1.7-8.2); EOSINOPHILS % (AUTO) 2.4 % (0-6); HEMATOCRIT 40.2 % (37.9-51.0); HEMOGLOBIN 14.2 g/dL (13.5-17.0); HGB HCT DIFFERENCE 2.4; LYMPHOCYTES % (AUTO) 23.6 % (13-45); MEAN CORPUSCULAR HEMOGLOBIN 31.2 pg (27.0-33.4); MEAN CORPUSCULAR HGB CONC 35.3 g/dL (32.0-36.0); MEAN CORPUSCULAR VOLUME 89 fl (80-97); MONOCYTES % (AUTO) 10.3 % (3-13); RED BLOOD COUNT 4.55 10^6/uL (4.35-5.55); RED CELL DISTRIBUTION WIDTH 12.4 % (11.5-14.0); SEGMENTED NEUTROPHILS % (AUTO) 62.7 % (42-78); WHITE BLOOD COUNT 10.4 10^3/uL (4.0-10.5)
[2017-07-23 05:55] LABS: ANION GAP 12 (5-19); BLOOD UREA NITROGEN 21 mg/dL (7-20); CALCIUM 8.9 mg/dL (8.4-10.2); CARBON DIOXIDE 25 mmol/L (22-30); CHLORIDE 103 mmol/L (98-107); CREATININE RESULT 1.26 mg/dL (0.52-1.25); GLUCOSE 132 mg/dL (75-110); SODIUM 139.8 mmol/L (137-145)
--- NOTE | 2017-07-23 10:05 | PDOC DISCHARGE SUMMARY ---
General - Admit/Disc Date/PCP Admission Date/Primary Care Provider: 07/21/17 20:44 ROSSY ALEKS Discharge Date: 07/23/17 - Discharge Diagnosis (1) Complicated urinary tract infection Is this a current diagnosis for this admission?: Yes (2) Left ureteral calculus Is this a current diagnosis for this admission?: Yes (3) Renal calculus, left Is this a current diagnosis for this admission?: Yes (4) Gastroenteritis, acute Is this a current diagnosis for this admission?: Yes (5) Tachycardia Is this a current diagnosis for this admission?: Yes (6) Diabetes mellitus type 2 in nonobese Is this a current diagnosis for this admission?: Yes (7) HTN (hypertension) Is this a current diagnosis for this admission?: Yes (8) HLD (hyperlipidemia) Is this a current diagnosis for this admission?: Yes (9) GERD (gastroesophageal reflux disease) Is this a current diagnosis for this admission?: Yes - Additional Information Resuscitation Status: Full Code Discharge Diet: Cardiac, Diabetic Discharge Activity: Activity As Tolerated Home Medications: Atorvastatin Calcium [Lipitor 10 mg Tablet] 10 mg PO QHS 01/20/17 Metformin HCl [Glucophage] 850 mg PO BID 01/20/17 Multivitamin [Daily Multiple Vitamin] 1 tab PO DAILY 01/20/17 Ramipril [Altace] 10 mg PO DAILY 07/20/17 Ciprofloxacin HCl 500 mg PO BID #10 tablet 07/23/17 Zolpidem Tartrate [Ambien 5 mg Tablet] 5 mg PO HSP PRN #30 tablet 07/23/17 History of Present Illness History of Present Illness: NATALEE PETERS is a 61 year old male known to my practice who walked in today with listed complaints. Patient reported onset of nausea night before coming to the office with several associate vomiting and eventually had episodes of diarrhea prior to coming to the office. Patient reported associated left lower quadrant abdominal pain that radiate into his left side. he reported associated fever and chills. no chest pain or difficulty with breathing. Patient has history for C. difficile colitis with prior management on tapering dose regimen of Vancomycin therapy. His laboratory evaluation did revealed leukocytosis with left shift necessitating recommendation for hospitalization. Hospital Course Hospital Course: Patient's symptoms did resolved with IV fluid hydration and empiric antibiotic coverage with IV Ciprofloxacin. His leukocytosis eventually resolved. No abdominal pain, fever or chills. His renal indices with regard to BUN and creatinine initial showed upward trend but with IV fluid infusion and encouragement to drink more water there is slight improvement. Patient is very eager to go home and will comply with adequate oral hydration. He will follow up in the office as instructed upon discharge. Physical Exam Vital Signs: Temp Pulse Resp BP Pulse Ox 97.9 F 93 18 134/79 H 99 07/23/17 07:25 07/23/17 07:25 07/23/17 07:25 07/23/17 07:25 07/23/17 07:25 Intake & Output 07/22/17 07/23/17 07/24/17 06:59 06:59 06:59 Intake Total 3572 3080 Balance 3572 3080 Physical Exam: General appearance: PRESENT: no acute distress, cooperative Head exam: PRESENT: atraumatic, normocephalic Eye exam: PRESENT: conjunctiva pink, EOMI, PERRLA. ABSENT: scleral icterus Mouth exam: PRESENT: moist Respiratory exam: PRESENT: clear to auscultation lena Cardiovascular exam: PRESENT: RRR. ABSENT: diastolic murmur, rubs, systolic murmur Vascular exam: PRESENT: normal capillary refill. ABSENT: pallor GI/Abdominal exam: PRESENT: normal bowel sounds, soft ABSENT: distended, tenderness, guarding, mass, organomegaly, rebound Extremities exam: ABSENT: pedal edema Musculoskeletal exam: PRESENT: deformity - related to multiple joints involvement with arthritis. Neurological exam: PRESENT: alert, awake, oriented to person, oriented to place , oriented to time, oriented to situation, CN II-XII grossly intact. ABSENT: motor sensory deficit Psychiatric exam: PRESENT: appropriate affect, normal mood. ABSENT: homicidal ideation, suicidal ideation Skin exam: PRESENT: dry, intact, warm. ABSENT: cyanosis, rash Results Laboratory Results: 07/23/17 04:56 07/23/17 04:56 07/23/17 07/23/17 04:56 04:56 WBC 10.4 RBC 4.55 Hgb 14.2 Hct 40.2 MCV 89 MCH 31.2 MCHC 35.3 RDW 12.4 Plt Count 239 Seg Neutrophils % 62.7 Lymphocytes % 23.6 Monocytes % 10.3 Eosinophils % 2.4 Basophils % 1.0 Absolute Neutrophils 6.5 Absolute Lymphocytes 2.4 Absolute Monocytes 1.1 Absolute Eosinophils 0.2 Absolute Basophils 0.1 Sodium 139.8 Potassium 4.0 Chloride 103 Carbon Dioxide 25 Anion Gap 12 BUN 21 H Creatinine 1.26 H Est GFR ( Amer) > 60 Est GFR (Non-Af Amer) 58 L Glucose 132 H Calcium 8.9 07/20/17 20:01 Clean Catch Midstream Urine Culture - Final NO GROWTH 2 DAYS Impressions: Abdomen X-Ray 07/20/17 00:00 IMPRESSION: Nonspecific intestinal bowel gas pattern as noted above. Left ureteric calculus as noted above. Small left renal calculi. Other findings as noted above. Chest X-Ray 07/20/17 00:00 IMPRESSION: NO SIGNIFICANT RADIOGRAPHIC FINDING IN THE CHEST. Qualifiers PATEINT BEING DISCHARGED WITH ANY OF THE FOLLOWING DIAGNOSIS?: No Plan Discharge Plan: D/C home today with 5 days of oral Ciprofloxacin administration for concern about possible infectious gastroenteritis with no growth on urin culture and blood culture at the time of discharge. Follow up on culture result and renal indices on outpatient.
[2017-07-23] MEDS: METFORMIN HCL 850 MG TABLET PO SCH (10:14)
[2017-07-23] MEDS: MULTIVITAMIN TABLET PO SCH (10:15)
[2017-07-23] MEDS: RAMIPRIL 10 MG CAPSULE PO SCH (10:15)
[2017-07-23 10:45] VITALS: BP 127/77
== END 2017-07-23 11:10 | disposition home or self-care (01) | DRG 690 ==
LOC: UNDOADMOB 17:23 → 4N 17:23 → OBSVTOIN 07-21 20:44
PROVIDERS: ADMIT Internal Medicine Geriatric Medicine; ATTEND Internal Medicine Geriatric Medicine
DX: N39.0 Urinary tract infection, site not specified (principal); N20.1 Calculus of ureter; E11.9 Type 2 diabetes mellitus without complications; K21.9 Gastro-esophageal reflux disease without esophagitis; M19.90 Unspecified osteoarthritis, unspecified site; K52.9 Noninfective gastroenteritis and colitis, unspecified; N20.0 Calculus of kidney; I10 Essential (primary) hypertension; E78.00 Pure hypercholesterolemia, unspecified; Z87.891 Personal history of nicotine dependence; Z79.899 Other long term (current) drug therapy
CPT/HCPCS: 36415; 71020; 74020; 80048; 80053; 81001; 82962; 85025; 87040; 87086; G0378; G0379; J0744; J2405; J3490; J7030; S0183

== ENCOUNTER 2017-10-14 10:07 | Inpatient (IN) | payer OTHER ==
[2017-10-14 11:46] LABS: APPEARANCE,URINE SLIGHTLY-CLOUDY; BILIRUBIN,URINE NEGATIVE (NEGATIVE); COLOR,URINE YELLOW; GLUCOSE, URINE >=500 mg/dL (NEGATIVE); KETONES,URINE 20 mg/dL (NEGATIVE); LEUKOCYTE ESTERASE,URINE NEGATIVE (NEGATIVE); NITRITE,URINE NEGATIVE (NEGATIVE); PROTEIN,URINE 30 mg/dL (NEGATIVE); URINE SPECIFIC GRAVITY 1.024; UROBILINOGEN,URINE NEGATIVE mg/dL (<2.0)
--- NOTE | 2017-10-14 11:54 | RADIOLOGY REPORT (SQ) ---
EXAM DESCRIPTION: CT LTD RENAL STONE PROTOCOL ON COMPLETED DATE/TIME: 10/14/2017 11:25 am REASON FOR STUDY: SIRS WITH UTI, KIDNEY STONES COMPARISON: January 2017 TECHNIQUE: CT scan of the abdomen and pelvis performed without intravenous or oral contrast. Images reviewed with lung, soft tissue, and bone windows. Reconstructed coronal and sagittal MPR images revi ewed. All images stored on PACS. All CT scanners at this facility use dose modulation, iterative reconstruction, and/or weight based d osing when appropriate to reduce radiation dose to as low as reasonably achievable (ALARA). [facility]: Dose Right [facility]: CareDose [facility]: Dose Right [facility]: Teradose 4D [facility]: Smart [facility] RADIATION DOSE: CT Rad equipment meets quality standard of care and radiation dose reduction techniq ues were employed. CTDIvol: 14.5 mGy. DLP: 819 mGy-cm.mGy. LIMITATIONS: None. FINDINGS: LOWER CHEST: No significant findings. No nodules or infiltrates. NON-CONTRASTED LIVER, SPLEEN, ADRENALS: Evaluation limited by lack of IV contrast. No identified sign ificant masses. PANCREAS: No masses. No peripancreatic inflammatory changes. GALLBLADDER: No identified stones by CT criteria. No inflammatory changes to suggest cholecystitis. RIGHT KIDNEY AND URETER: No suspicious masses. Assessment limited by lack of IV contrast. No signif icant calcifications. No hydronephrosis or hydroureter. LEFT KIDNEY AND URETER: No suspicious masses. Assessment limited by lack of IV contrast. Small nono bstructing renal calculi are identified. There is a large obstructing calculus at the level of the l eft mid ureter measuring 6.8 x 13.8 mm in diameters. A 2nd smaller ureteric calculus is identified j ust proximal to the obstructing calculus. There is marked hydronephrosis of the left kidney and dil atation of the left ureter to the level of the obstructing calculus. Perinephric soft tissue strandi ng is identified. AORTA AND RETROPERITONEUM: No aneurysm. No retroperitoneal masses or adenopathy. BOWEL AND PERITONEAL CAVITY: No obvious masses or inflammatory changes. No free fluid. Scattered sig moid diverticula are again identified. APPENDIX: Normal. PELVIS, BLADDER, AND ABDOMINAL WALL:No abnormal masses. No free fluid. There is some prominence of p rostate gland with prostatic calcifications and a prostatic impression on the bladder base BONES: No significant findings. OTHER: No other significant finding. IMPRESSION: Large obstructing calculus at the level of the mid left ureter as noted above. There is a 2nd small ureteric calculus just proximal to the obstructing calculus. Small nonobstructing left renal calculi are identified. Other findings as noted above COMMENT: Quality ID # [id number]: Final reports with documentation of one or more dose reduction techniques (e.g., Automated exposure control, adjustment of the mA and/or kV according to patient size, use of iterative reconstruction technique) TECHNICAL DOCUMENTATION: JOB ID: [id number] [employer]- All Rights Reserved
[2017-10-14 12:27] LABS: HEMATOCRIT 44.1 % (37.9-51.0); HEMOGLOBIN 15.5 g/dL (13.5-17.0); MEAN CORPUSCULAR HEMOGLOBIN 31.2 pg (27.0-33.4); MEAN CORPUSCULAR HGB CONC 35.1 g/dL (32.0-36.0); MEAN CORPUSCULAR VOLUME 89 fl (80-97); PLATELET COUNT 331 10^3/uL (150-450); RED BLOOD COUNT 4.95 10^6/uL (4.35-5.55); RED CELL DISTRIBUTION WIDTH 12.6 % (11.5-14.0)
[2017-10-14 12:53] LABS: ABSOLUTE MONOCYTES # (MANUAL) 0.2 10^3/uL (0.1-1.4); ABSOLUTE NEUTROPHILS# (MANUAL) 18.8 10^3/uL (1.7-8.2); BASOPHILS % (MANUAL) 0 % (0-2); EOSINOPHILS % (MANUAL) 0 % (0-6); LYMPHOCYTES % (MANUAL) 5 % (13-45); MONOCYTES % (MANUAL) 1 % (3-13); SEGMENTED NEUTROPHILS % (MAN) 94 % (42-78); TOTAL CELLS COUNTED 100
[2017-10-14 12:55] LABS: TOXIC GRANULATION SLIGHT
[2017-10-14 12:56] LABS: PLATELET COMMENT ADEQUATE; RBC MORPHOLOGY COMMENT NORMO-CYTIC/CHROMIC; TOXIC VACUOLATION PRESENT
[2017-10-14 12:57] LABS: ALANINE AMINOTRANSFERASE 95 U/L (21-72); ALBUMIN 5.1 g/dL (3.5-5.0); ALKALINE PHOSPHATASE 188 U/L (38-126); ANION GAP 18 (5-19); ASPARTATE AMINO TRANSFERASE 47 U/L (17-59); BILIRUBIN,DIRECT 0.3 mg/dL (0.0-0.4); BILIRUBIN,TOTAL 0.8 mg/dL (0.2-1.3); BLOOD UREA NITROGEN 17 mg/dL (7-20); CALCIUM 10.1 mg/dL (8.4-10.2); CARBON DIOXIDE 26 mmol/L (22-30); CHLORIDE 93 mmol/L (98-107); GLUCOSE 386 mg/dL (75-110); POTASSIUM 4.6 mmol/L (3.6-5.0); SODIUM 136.7 mmol/L (137-145)
[2017-10-14] MEDS: MORPHINE SULFATE 10 MG/ML INJ IV PRN ×2 (14:51→18:59)
[2017-10-14] MEDS: ONDANSETRON HCL INJ/PF 4 MG/2 ML SDV IV PRN ×2 (14:51→18:59)
[2017-10-14] MEDS ORDERED: DEXTROSE 50%-WATER SYRINGE 12.5 GM/25 ML DOSE IV PRN (15:34)
[2017-10-14] MEDS ORDERED: DEXTROSE 40% GEL 15 GM TUBE PO PRN (15:34)
[2017-10-14] MEDS ORDERED: DEXTROSE 50%-WATER SYRINGE 25 GM/50 ML DOSE IV PRN (15:34)
[2017-10-14] MEDS ORDERED: DEXTROSE 40% GEL 15 GM TUBE X 2 PO PRN (15:34)
[2017-10-14] MEDS ORDERED: GLUCAGON,HUMAN RECOMB 1 MG INJ IM PRN (15:34)
[2017-10-14] MEDS ORDERED: TAMSULOSIN HCL 0.4 MG CAP.SR.24H PO SCH (16:00)
[2017-10-14] MEDS: INSULIN LISPRO 100 UNIT/ML 3 ML VIAL SUBCUT PRN ×2 (16:52→22:58)
--- NOTE | 2017-10-14 17:18 | PDOC H&P ---
History of Present Illness Admission Date/PCP: 10/14/17 10:09 ROSSY FINK Patient complains of: Abdominal pain History of Present Illness: NATALEE PETERS is a 62 year old male known to my practice who presented to office earlier today with compliant of abdominal pain, bloating, nausea, and vomiting. Patient described pain as cramping, localized to his mid abdomen and left flank regions. Patient reported that his pain started abruptly earlier this morning and have gradually worsen. He denied any definite fever or chills. He denied any blood in his urine, heartburn, or shortness of breath. Patient has history of kidney stone. His initial evaluation in the office revealed associated leukocytosis, tachycardia, and abnormal urinalysis. He was subsequently referred to the ED for further evaluation and management. His morbidities include Hypertension, Diabetes Mellitus type 2, Hypercholesterolemia, GERD, and Diverticulosis. Past Medical History Cardiac Medical History: Reports: Hyperlipidema Endocrine Medical History: Reports: Diabetes Mellitus Type 2 GI Medical History: Reports: Diverticulitis, Gastroesophageal Reflux Disease Musculoskeltal Medical History: Reports: Arthritis Psychiatric Medical History: Denies: Depression Social History Smoking Status: Former Smoker Frequency of Alcohol Use: Rare Hx Recreational Drug Use: No Drugs: None Hx Prescription Drug Abuse: No Family History Family History: Reviewed & Not Pertinent Parental Family History Reviewed: Yes Children Family History Reviewed: Yes Sibling(s) Family History Reviewed.: Yes Medication/Allergy Home Medications: Atorvastatin Calcium [Lipitor 10 mg Tablet] 10 mg PO QHS 10/14/17 Metformin HCl [Glucophage] 850 mg PO Q12 10/14/17 Ramipril [Altace 10 mg Capsule] 10 mg PO DAILY 10/14/17 Allergies/Adverse Reactions: No Known Allergies Allergy (Verified 10/14/17 10:16) Review of Systems Constitutional: ABSENT: chills, fever(s), headache(s), weight gain, weight loss Eyes: PRESENT: visual disturbances - CAWG Ears: ABSENT: hearing changes Nose, Mouth, and Throat: ABSENT: as per HPI, headache(s), mouth pain, sore throat, vertigo, other Cardiovascular: ABSENT: chest pain, dyspnea on exertion, edema, orthropnea, palpitations Respiratory: ABSENT: cough, hemoptysis Gastrointestinal: PRESENT: abdominal pain, bloating, nausea, vomiting, other - decreased appetite Genitourinary: ABSENT: dysuria, hematuria Musculoskeletal: PRESENT: deformity - related to arthritis. ABSENT: back pain, joint swelling, muscle weakness Integumentary: ABSENT: rash, wounds Neurological: ABSENT: abnormal gait, abnormal speech, confusion, dizziness, focal weakness, syncope Psychiatric: ABSENT: anxiety, depression, homidical ideation, suicidal ideation Endocrine: ABSENT: cold intolerance, heat intolerance, polydipsia, polyphagia, polyuria Hematologic/Lymphatic: ABSENT: easy bleeding, easy bruising, lymphadenopathy Allergic/Immunologic: ABSENT: seasonal rhinorrhea Physical Exam Vital Signs: Temp Pulse Resp BP Pulse Ox 98.4 F 103 H 20 147/89 H 96 10/14/17 14:44 10/14/17 14:44 10/14/17 14:44 10/14/17 14:44 10/14/17 14:44 Intake & Output 10/13/17 10/14/17 10/15/17 06:59 06:59 06:59 Weight 95.7 kg General appearance: PRESENT: no acute distress, well-developed, well-nourished Head exam: PRESENT: atraumatic, normocephalic Eye exam: PRESENT: conjunctiva pink, EOMI, PERRLA. ABSENT: scleral icterus Ear exam: PRESENT: normal external ear exam Mouth exam: PRESENT: moist, tongue midline Throat exam: ABSENT: post pharyngeal erythema, tonsillar erythema, tonsillar exudate, tonsillogmegaly Respiratory exam: PRESENT: clear to auscultation lena Cardiovascular exam: PRESENT: RRR. ABSENT: diastolic murmur, rubs, systolic murmur Pulses: PRESENT: normal dorsalis pedis pul, +1 pedal pulses bilateral Vascular exam: PRESENT: normal capillary refill. ABSENT: pallor GI/Abdominal exam: PRESENT: guarding - minimally to deep palpation, normal bowel sounds, soft, tenderness - Left flank region. ABSENT: distended, mass, organolmegaly, rebound Rectal exam: PRESENT: deferred Extremities exam: ABSENT: pedal edema Musculoskeletal exam: PRESENT: ambulatory, normal inspection Neurological exam: PRESENT: alert, awake, oriented to person, oriented to place , oriented to time, oriented to situation, CN II-XII grossly intact. ABSENT: motor sensory deficit Psychiatric exam: PRESENT: appropriate affect, normal mood. ABSENT: homicidal ideation, suicidal ideation Skin exam: PRESENT: dry, intact, warm. ABSENT: cyanosis, rash Results Laboratory Results: 10/14/17 11:58 10/14/17 11:58 10/14/17 10/14/17 10/14/17 11:35 11:58 11:58 WBC 20.0 H RBC 4.95 Hgb 15.5 Hct 44.1 MCV 89 MCH 31.2 MCHC 35.1 RDW 12.6 Plt Count 331 Seg Neutrophils % Not Reportable Lymphocytes % Not Reportable Monocytes % Not Reportable Eosinophils % Not Reportable Basophils % Not Reportable Absolute Neutrophils Not Reportable Absolute Lymphocytes Not Reportable Absolute Monocytes Not Reportable Absolute Eosinophils Not Reportable Absolute Basophils Not Reportable Sodium 136.7 L Potassium 4.6 Chloride 93 L Carbon Dioxide 26 Anion Gap 18 BUN 17 Creatinine 1.12 Est GFR ( Amer) > 60 Est GFR (Non-Af Amer) > 60 Glucose 386 H Calcium 10.1 Total Bilirubin 0.8 AST 47 ALT 95 H Alkaline Phosphatase 188 H Total Protein 8.0 Albumin 5.1 H Urine Color YELLOW Urine Appearance SLIGHTLY-CLOUDY Urine pH 5.0 Ur Specific [place] 1.024 Urine Protein 30 H Urine Glucose (UA) >=500 H Urine Ketones 20 H Urine Blood LARGE H Urine Nitrite NEGATIVE Ur Leukocyte Esterase NEGATIVE Urine WBC (Auto) 7 Urine RBC (Auto) >182 Impressions: Limited or Localized CT 10/14/17 00:00 IMPRESSION: Large obstructing calculus at the level of the mid left ureter as noted above. There is a 2nd small ureteric calculus just proximal to the obstructing calculus. Small nonobstructing left renal calculi are identified. Other findings as noted above Assessment & Plan - Diagnosis (1) Systemic inflammatory response syndrome (SIRS) due to infection Is this a current diagnosis for this admission?: Yes Plan: See attending physician orders. (2) Left ureteral calculus Is this a current diagnosis for this admission?: Yes Plan: See attending physician orders. (3) Complicated urinary tract infection Is this a current diagnosis for this admission?: Yes Plan: See attending physician orders. (4) Diabetes mellitus type 2 in nonobese Is this a current diagnosis for this admission?: Yes Plan: See attending physician orders. (5) HTN (hypertension) Qualifiers: Hypertension type: essential hypertension Qualified Code(s): I10 - Essential (primary) hypertension Is this a current diagnosis for this admission?: Yes Plan: See attending physician orders. (6) HLD (hyperlipidemia) Qualifiers: Hyperlipidemia type: pure hypercholesterolemia Qualified Code(s): E78.00 - Pure hypercholesterolemia, unspecified Is this a current diagnosis for this admission?: Yes (7) GERD (gastroesophageal reflux disease) Qualifiers: Esophagitis presence: without esophagitis Qualified Code(s): K21.9 - Gastro -esophageal reflux disease without esophagitis Is this a current diagnosis for this admission?: Yes Plan: See attending physician orders. - Time Time Spent: Greater than 70 Minutes - Involved initial evaluation in the office , coordination of transfer to ED and further assessment in the hospital. Medications reviewed and adjusted accordingly: Yes Anticipated discharge: Home Within: Other - Inpatient Certification Based on my medical assessment, after consideration of the patient's comorbidities, presenting symptoms, or acuity I expect that the services needed warrant INPATIENT care.: Yes I certify that my determination is in accordance with my understanding of Medicare's requirements for reasonable and necessary INPATIENT services [42 CFR 412.3e].: Yes Medical Necessity: Need Close Monitoring Due to Risk of Patient Decompensation, Need For IV Fluids, Need For Continuous Telemetry Monitoring, Need for IV Antibiotics, Risk of Complication if Not Cared For in Hospital 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 See attending physician orders.
[2017-10-14] MEDS ORDERED: MEROPENEM 500 MG in NORMAL SALINE 50 ML IV SCH (18:00)
[2017-10-14] MEDS: NORMAL SALINE 1000 ML 1,000 ML IV PRN (18:59)
[2017-10-14] MEDS: ZOLPIDEM TARTRATE 5 MG TABLET PO PRN (22:51)
[2017-10-14] MEDS: METFORMIN HCL 850 MG TABLET PO SCH (22:51)
[2017-10-14] MEDS: ATORVASTATIN CALCIUM 10 MG TABLET PO SCH (22:51)
[2017-10-15] MEDS: ONDANSETRON HCL INJ/PF 4 MG/2 ML SDV IV PRN ×2 (00:08→08:44)
[2017-10-15] MEDS: MEROPENEM 500 MG in NORMAL SALINE 100 ML IV SCH ×3 (01:15→18:06)
[2017-10-15] MEDS: LANSOPRAZOLE 30 MG TAB.RAP.DR PO SCH (05:07)
[2017-10-15] MEDS: INSULIN LISPRO 100 UNIT/ML 3 ML VIAL SUBCUT PRN ×2 (07:32→11:14)
[2017-10-15] MEDS: NORMAL SALINE 1000 ML 1,000 ML IV PRN ×2 (08:38→20:58)
[2017-10-15] MEDS: METFORMIN HCL 850 MG TABLET PO SCH ×2 (10:47→20:55)
[2017-10-15] MEDS: RAMIPRIL 10 MG CAPSULE PO SCH (10:48)
[2017-10-15] MEDS: ENOXAPARIN SODIUM INJ 40 MG/0.4 ML DISP.SYRIN SUBCUT SCH (10:50)
[2017-10-15] MEDS: TAMSULOSIN HCL 0.4 MG CAP.SR.24H PO SCH (18:06)
--- NOTE | 2017-10-15 19:10 | PDOC PROGRESS REPORT ---
Subjective Progress Note for:: 10/15/17 Subjective:: Patient was seen by the bedside, admitted for the management of complicated UTI due to a large left ureteric stone , he has no new complaints today Reason For Visit: SIRS WITH UTI AND POSSIBLE KIDNEY STONE Physical Exam Vital Signs: Temp Pulse Resp BP Pulse Ox 98.2 F 106 H 18 114/68 97 10/15/17 15:59 10/15/17 15:59 10/15/17 15:59 10/15/17 15:59 10/15/17 15:59 Intake & Output 10/14/17 10/15/17 10/16/17 06:59 06:59 06:59 Intake Total 850 1888 Balance 850 1888 Weight 95.7 kg General appearance: PRESENT: no acute distress, well-developed, well-nourished Head exam: PRESENT: atraumatic, normocephalic Eye exam: PRESENT: conjunctiva pink, EOMI, PERRLA. ABSENT: scleral icterus Ear exam: PRESENT: normal external ear exam Mouth exam: PRESENT: moist, tongue midline Neck exam: PRESENT: full ROM. ABSENT: carotid bruit, JVD, lymphadenopathy, thyromegaly Respiratory exam: PRESENT: clear to auscultation lena Cardiovascular exam: PRESENT: RRR, +S1, +S2. ABSENT: diastolic murmur, rubs, systolic murmur Pulses: PRESENT: normal dorsalis pedis pul, +2 pedal pulses bilateral Vascular exam: PRESENT: normal capillary refill GI/Abdominal exam: PRESENT: normal bowel sounds, soft. ABSENT: distended, guarding, mass, organolmegaly, rebound, tenderness Rectal exam: PRESENT: deferred Neurological exam: PRESENT: alert, awake, oriented to person, oriented to place , oriented to time, oriented to situation, CN II-XII grossly intact. ABSENT: motor sensory deficit Psychiatric exam: PRESENT: appropriate affect, normal mood. ABSENT: homicidal ideation, suicidal ideation Skin exam: PRESENT: dry, intact, warm. ABSENT: cyanosis, rash Results Laboratory Results: 10/14/17 11:58 10/14/17 11:58 Impressions: Limited or Localized CT 10/14/17 00:00 IMPRESSION: Large obstructing calculus at the level of the mid left ureter as noted above. There is a 2nd small ureteric calculus just proximal to the obstructing calculus. Small nonobstructing left renal calculi are identified. Other findings as noted above Assessment & Plan - Diagnosis (1) Complicated urinary tract infection Is this a current diagnosis for this admission?: Yes (2) Hydronephrosis of left kidney Is this a current diagnosis for this admission?: Yes (3) Left ureteral calculus Is this a current diagnosis for this admission?: Yes - Plan Summary Plan Summary: Patient will continue, the IV antibiotic, IV fluid the stone is quite large, may need a stent or lithotripsy, the stone is more than 10 mm in diameter
[2017-10-15] MEDS: ATORVASTATIN CALCIUM 10 MG TABLET PO SCH (20:55)
[2017-10-16] MEDS: MEROPENEM 500 MG in NORMAL SALINE 100 ML IV SCH ×3 (02:14→17:03)
[2017-10-16] MEDS: LANSOPRAZOLE 30 MG TAB.RAP.DR PO SCH (05:39)
[2017-10-16] MEDS: METFORMIN HCL 850 MG TABLET PO SCH ×2 (09:30→21:56)
[2017-10-16] MEDS: RAMIPRIL 10 MG CAPSULE PO SCH (09:30)
[2017-10-16] MEDS: ENOXAPARIN SODIUM INJ 40 MG/0.4 ML DISP.SYRIN SUBCUT SCH (09:31)
[2017-10-16 11:55] LABS: ABSOLUTE BASOPHILS # (AUTO) 0.1 10^3/uL (0.0-0.2); ABSOLUTE EOSINOPHILS # (AUTO) 0.1 10^3/uL (0.0-0.6); ABSOLUTE LYMPHOCYTES (AUTO) 2.4 10^3/uL (0.5-4.7); ABSOLUTE MONOCYTES (AUTO) 0.8 10^3/uL (0.1-1.4); ABSOLUTE NEUT (AUTO) 6.2 10^3/uL (1.7-8.2); BASOPHILS % (AUTO) 0.7 % (0-2); EOSINOPHILS % (AUTO) 1.5 % (0-6); HEMATOCRIT 38.2 % (37.9-51.0); LYMPHOCYTES % (AUTO) 24.7 % (13-45); MEAN CORPUSCULAR HEMOGLOBIN 31.3 pg (27.0-33.4); MEAN CORPUSCULAR HGB CONC 35.1 g/dL (32.0-36.0); MEAN CORPUSCULAR VOLUME 89 fl (80-97); MONOCYTES % (AUTO) 8.7 % (3-13); PLATELET COUNT 283 10^3/uL (150-450); RED BLOOD COUNT 4.29 10^6/uL (4.35-5.55); RED CELL DISTRIBUTION WIDTH 12.3 % (11.5-14.0); SEGMENTED NEUTROPHILS % (AUTO) 64.4 % (42-78); TOTAL CELLS COUNTED % (AUTO) 100 %; WHITE BLOOD COUNT 9.6 10^3/uL (4.0-10.5)
[2017-10-16] MEDS: INSULIN LISPRO 100 UNIT/ML 3 ML VIAL SUBCUT PRN (11:56)
[2017-10-16 12:05] LABS: HEMOGLOBIN 13.4 g/dL (13.5-17.0)
[2017-10-16 12:16] LABS: ALANINE AMINOTRANSFERASE 59 U/L (21-72); ALBUMIN 3.9 g/dL (3.5-5.0); ALKALINE PHOSPHATASE 128 U/L (38-126); ANION GAP 8 (5-19); ASPARTATE AMINO TRANSFERASE 37 U/L (17-59); BILIRUBIN,DIRECT 0.1 mg/dL (0.0-0.4); BILIRUBIN,TOTAL 0.4 mg/dL (0.2-1.3); BLOOD UREA NITROGEN 19 mg/dL (7-20); CALCIUM 9.2 mg/dL (8.4-10.2); CARBON DIOXIDE 28 mmol/L (22-30); CHLORIDE 102 mmol/L (98-107); GLUCOSE 215 mg/dL (75-110); POTASSIUM 4.7 mmol/L (3.6-5.0); SODIUM 138.3 mmol/L (137-145); TOTAL PROTEIN 6.4 g/dL (6.3-8.2)
[2017-10-16] MEDS: TAMSULOSIN HCL 0.4 MG CAP.SR.24H PO SCH (17:03)
--- NOTE | 2017-10-16 17:20 | PDOC PROGRESS REPORT ---
Subjective Progress Note for:: 10/16/17 Subjective:: He was seen by the bedside he has a large kidney stone, 16 mm in the right ureter. It is unlikely to pass such a big stone, I explained to him today the likelihood that he may need to see urologist apparently Dr. Patton also told him the same thing, he may need extraction of the stone either physically or true with lithotripsy. He is presently responding to antibiotic he has associated right hydronephrosis. He gave the impression that he has history of recurrent kidney stone. Reason For Visit: SIRS WITH UTI AND POSSIBLE KIDNEY STONE Physical Exam Vital Signs: Temp Pulse Resp BP Pulse Ox 98.1 F 86 19 123/79 98 10/16/17 12:09 10/16/17 14:00 10/16/17 12:09 10/16/17 12:09 10/16/17 12:09 Intake & Output 10/15/17 10/16/17 10/17/17 06:59 06:59 06:59 Intake Total 850 3411 1080 Balance 850 3411 1080 Weight 95.7 kg General appearance: PRESENT: no acute distress Eye exam: PRESENT: PERRLA Respiratory exam: PRESENT: clear to auscultation lena Cardiovascular exam: PRESENT: +S1, +S2 GI/Abdominal exam: PRESENT: soft Neurological exam: PRESENT: alert Results Laboratory Results: 10/16/17 11:27 10/16/17 11:27 10/16/17 10/16/17 11:27 11:27 WBC 9.6 RBC 4.29 L Hgb 13.4 L D Hct 38.2 MCV 89 MCH 31.3 MCHC 35.1 RDW 12.3 Plt Count 283 Seg Neutrophils % 64.4 Lymphocytes % 24.7 Monocytes % 8.7 Eosinophils % 1.5 Basophils % 0.7 Absolute Neutrophils 6.2 Absolute Lymphocytes 2.4 Absolute Monocytes 0.8 Absolute Eosinophils 0.1 Absolute Basophils 0.1 Sodium 138.3 Potassium 4.7 Chloride 102 Carbon Dioxide 28 Anion Gap 8 BUN 19 Creatinine 1.12 Est GFR ( Amer) > 60 Est GFR (Non-Af Amer) > 60 Glucose 215 H Calcium 9.2 Total Bilirubin 0.4 AST 37 ALT 59 Alkaline Phosphatase 128 H Total Protein 6.4 Albumin 3.9 10/14/17 11:35 Clean Catch Midstream Urine Culture - Final Urogenital Tory Impressions: Limited or Localized CT 10/14/17 00:00 IMPRESSION: Large obstructing calculus at the level of the mid left ureter as noted above. There is a 2nd small ureteric calculus just proximal to the obstructing calculus. Small nonobstructing left renal calculi are identified. Other findings as noted above Assessment & Plan - Diagnosis (1) Complicated urinary tract infection Is this a current diagnosis for this admission?: Yes Plan: Continue IV antibiotic IV fluids, and other treatment (2) Hydronephrosis of left kidney Is this a current diagnosis for this admission?: Yes (3) Left ureteral calculus Is this a current diagnosis for this admission?: Yes (4) Diabetes Qualifiers: Diabetes mellitus type: type 2 Diabetes mellitus complication status: with unspecified complications Diabetes mellitus skilled nursing insulin use: without skilled nursing use Qualified Code(s): E11.8 - Type 2 diabetes mellitus with unspecified complications Is this a current diagnosis for this admission?: Yes
[2017-10-16] MEDS: NORMAL SALINE 1000 ML 1,000 ML IV PRN (21:54)
[2017-10-16] MEDS: ZOLPIDEM TARTRATE 5 MG TABLET PO PRN (21:55)
[2017-10-16] MEDS: ATORVASTATIN CALCIUM 10 MG TABLET PO SCH (21:56)
[2017-10-17] MEDS: MEROPENEM 500 MG in NORMAL SALINE 100 ML IV SCH ×3 (02:32→17:47)
[2017-10-17] MEDS: LANSOPRAZOLE 30 MG TAB.RAP.DR PO SCH (05:56)
[2017-10-17 06:38] LABS: ABSOLUTE BASOPHILS # (AUTO) 0.1 10^3/uL (0.0-0.2); ABSOLUTE EOSINOPHILS # (AUTO) 0.2 10^3/uL (0.0-0.6); ABSOLUTE LYMPHOCYTES (AUTO) 2.5 10^3/uL (0.5-4.7); ABSOLUTE MONOCYTES (AUTO) 0.9 10^3/uL (0.1-1.4); ABSOLUTE NEUT (AUTO) 6.6 10^3/uL (1.7-8.2); BASOPHILS % (AUTO) 0.6 % (0-2); HEMATOCRIT 36.7 % (37.9-51.0); HEMOGLOBIN 12.7 g/dL (13.5-17.0); LYMPHOCYTES % (AUTO) 23.9 % (13-45); MEAN CORPUSCULAR HEMOGLOBIN 30.7 pg (27.0-33.4); MEAN CORPUSCULAR HGB CONC 34.7 g/dL (32.0-36.0); MEAN CORPUSCULAR VOLUME 89 fl (80-97); MONOCYTES % (AUTO) 9.2 % (3-13); PLATELET COUNT 269 10^3/uL (150-450); RED BLOOD COUNT 4.15 10^6/uL (4.35-5.55); RED CELL DISTRIBUTION WIDTH 12.2 % (11.5-14.0); SEGMENTED NEUTROPHILS % (AUTO) 64.3 % (42-78); TOTAL CELLS COUNTED % (AUTO) 100 %; WHITE BLOOD COUNT 10.3 10^3/uL (4.0-10.5)
[2017-10-17 07:01] LABS: ALANINE AMINOTRANSFERASE 54 U/L (21-72); ALBUMIN 3.6 g/dL (3.5-5.0); ALKALINE PHOSPHATASE 108 U/L (38-126); ANION GAP 11 (5-19); ASPARTATE AMINO TRANSFERASE 32 U/L (17-59); BILIRUBIN,DIRECT 0.1 mg/dL (0.0-0.4); BILIRUBIN,TOTAL 0.4 mg/dL (0.2-1.3); BLOOD UREA NITROGEN 15 mg/dL (7-20); CARBON DIOXIDE 26 mmol/L (22-30); CHLORIDE 103 mmol/L (98-107); GLUCOSE 174 mg/dL (75-110); POTASSIUM 4.3 mmol/L (3.6-5.0); SODIUM 139.8 mmol/L (137-145); TOTAL PROTEIN 5.9 g/dL (6.3-8.2)
[2017-10-17] MEDS: METFORMIN HCL 850 MG TABLET PO SCH ×2 (09:14→21:56)
[2017-10-17] MEDS: RAMIPRIL 10 MG CAPSULE PO SCH (09:14)
[2017-10-17] MEDS: ENOXAPARIN SODIUM INJ 40 MG/0.4 ML DISP.SYRIN SUBCUT SCH (09:15)
[2017-10-17] MEDS: NORMAL SALINE 1000 ML 1,000 ML IV PRN (09:16)
[2017-10-17] MEDS: INSULIN LISPRO 100 UNIT/ML 3 ML VIAL SUBCUT PRN ×3 (11:18→21:56)
[2017-10-17] MEDS: ONDANSETRON HCL INJ/PF 4 MG/2 ML SDV IV PRN (14:54)
[2017-10-17] MEDS: TAMSULOSIN HCL 0.4 MG CAP.SR.24H PO SCH (17:48)
--- NOTE | 2017-10-17 19:05 | PDOC PROGRESS REPORT ---
Subjective Progress Note for:: 10/17/17 Subjective:: Patient denied any fever or chills. Left flank and abdominal pain improved. No nausea or vomiting. No chest pain or difficulty with breathing. Reported episodes of diarrhea, more of watery stool, intermittently and longstanding. Reason For Visit: SIRS WITH UTI AND POSSIBLE KIDNEY STONE Physical Exam Vital Signs: Temp Pulse Resp BP Pulse Ox 97.5 F 92 12 139/83 H 98 10/17/17 16:24 10/17/17 16:24 10/17/17 16:24 10/17/17 16:24 10/17/17 16:24 Intake & Output 10/16/17 10/17/17 10/18/17 06:59 06:59 06:59 Intake Total 3411 4891 2265 Balance 3411 4891 2265 General appearance: PRESENT: no acute distress, well-developed, well-nourished Head exam: PRESENT: atraumatic, normocephalic Eye exam: PRESENT: conjunctiva pink, EOMI, PERRLA. ABSENT: scleral icterus Mouth exam: PRESENT: moist Respiratory exam: PRESENT: clear to auscultation lena Cardiovascular exam: PRESENT: RRR. ABSENT: diastolic murmur, rubs, systolic murmur Vascular exam: PRESENT: normal capillary refill. ABSENT: pallor GI/Abdominal exam: PRESENT: normal bowel sounds, soft. ABSENT: distended, guarding, mass, organolmegaly, rebound, tenderness Extremities exam: ABSENT: pedal edema Musculoskeletal exam: PRESENT: normal inspection Neurological exam: PRESENT: alert, awake, oriented to person, oriented to place , oriented to time, oriented to situation, CN II-XII grossly intact. ABSENT: motor sensory deficit Psychiatric exam: PRESENT: appropriate affect, normal mood. ABSENT: homicidal ideation, suicidal ideation Skin exam: PRESENT: dry, intact, warm. ABSENT: cyanosis, rash Results Laboratory Results: 10/17/17 04:59 10/17/17 04:59 10/17/17 10/17/17 04:59 04:59 WBC 10.3 RBC 4.15 L Hgb 12.7 L Hct 36.7 L MCV 89 MCH 30.7 MCHC 34.7 RDW 12.2 Plt Count 269 Seg Neutrophils % 64.3 Lymphocytes % 23.9 Monocytes % 9.2 Eosinophils % 2.0 Basophils % 0.6 Absolute Neutrophils 6.6 Absolute Lymphocytes 2.5 Absolute Monocytes 0.9 Absolute Eosinophils 0.2 Absolute Basophils 0.1 Sodium 139.8 Potassium 4.3 Chloride 103 Carbon Dioxide 26 Anion Gap 11 BUN 15 Creatinine 0.98 Est GFR ( Amer) > 60 Est GFR (Non-Af Amer) > 60 Glucose 174 H Calcium 9.0 Total Bilirubin 0.4 AST 32 ALT 54 Alkaline Phosphatase 108 Total Protein 5.9 L Albumin 3.6 10/14/17 11:35 Clean Catch Midstream Urine Culture - Final Urogenital Tory > 100,000 col/mL Impressions: Limited or Localized CT 10/14/17 00:00 IMPRESSION: Large obstructing calculus at the level of the mid left ureter as noted above. There is a 2nd small ureteric calculus just proximal to the obstructing calculus. Small nonobstructing left renal calculi are identified. Other findings as noted above Assessment & Plan - Diagnosis (1) Systemic inflammatory response syndrome (SIRS) due to infection Is this a current diagnosis for this admission?: Yes (2) Left ureteral calculus Is this a current diagnosis for this admission?: Yes (3) Complicated urinary tract infection Is this a current diagnosis for this admission?: Yes (4) Diabetes mellitus type 2 in nonobese Is this a current diagnosis for this admission?: Yes (5) HTN (hypertension) Qualifiers: Hypertension type: essential hypertension Qualified Code(s): I10 - Essential (primary) hypertension Is this a current diagnosis for this admission?: Yes (6) HLD (hyperlipidemia) Qualifiers: Hyperlipidemia type: pure hypercholesterolemia Qualified Code(s): E78.00 - Pure hypercholesterolemia, unspecified Is this a current diagnosis for this admission?: Yes (7) GERD (gastroesophageal reflux disease) Qualifiers: Esophagitis presence: without esophagitis Qualified Code(s): K21.9 - Gastro -esophageal reflux disease without esophagitis Is this a current diagnosis for this admission?: Yes - Time Time Spent with patient: 25-34 minutes Medications reviewed and adjusted accordingly: Yes Anticipated discharge: Home Within: Other - Inpatient Certification Based on my medical assessment, after consideration of the patient's comorbidities, presenting symptoms, or acuity I expect that the services needed warrant INPATIENT care.: Yes I certify that my determination is in accordance with my understanding of Medicare's requirements for reasonable and necessary INPATIENT services [42 CFR 412.3e].: Yes Medical Necessity: Need Close Monitoring Due to Risk of Patient Decompensation, Need For IV Fluids, Need For Continuous Telemetry Monitoring, Need for IV Antibiotics, Risk of Complication if Not Cared For in Hospital Post Hospital Care: D/C Market Relationship Manager Documentation - Plan Summary Plan Summary: Continue IV antibiotic coverage. Follow up on pending blood culture findings. Decrease IV fluid rate to 50 mL/hour. Maintain on all other current medication management.
[2017-10-17] MEDS: ATORVASTATIN CALCIUM 10 MG TABLET PO SCH (21:56)
[2017-10-17] MEDS: ZOLPIDEM TARTRATE 5 MG TABLET PO PRN (21:56)
[2017-10-18] MEDS: MEROPENEM 500 MG in NORMAL SALINE 100 ML IV SCH ×3 (03:06→17:11)
[2017-10-18] MEDS: LANSOPRAZOLE 30 MG TAB.RAP.DR PO SCH (06:48)
[2017-10-18] MEDS: RAMIPRIL 10 MG CAPSULE PO SCH (09:10)
[2017-10-18] MEDS: METFORMIN HCL 850 MG TABLET PO SCH ×2 (09:10→21:47)
[2017-10-18] MEDS: ENOXAPARIN SODIUM INJ 40 MG/0.4 ML DISP.SYRIN SUBCUT SCH (09:11)
[2017-10-18] MEDS: INSULIN LISPRO 100 UNIT/ML 3 ML VIAL SUBCUT PRN (12:02)
[2017-10-18] MEDS: TAMSULOSIN HCL 0.4 MG CAP.SR.24H PO SCH (17:11)
--- NOTE | 2017-10-18 18:02 | PDOC PROGRESS REPORT ---
Subjective Progress Note for:: 10/18/17 Subjective:: No chest pain or difficulty with breathing. No fever or chills. Left flank and abdominal pain improved. No nausea or vomiting. No definite diarrhea. No dysuria or hematuria. Reason For Visit: SIRS WITH UTI AND POSSIBLE KIDNEY STONE Physical Exam Vital Signs: Temp Pulse Resp BP Pulse Ox 98.5 F 90 16 115/72 96 10/18/17 15:12 10/18/17 15:12 10/18/17 15:12 10/18/17 15:12 10/18/17 15:12 Intake & Output 10/17/17 10/18/17 10/19/17 06:59 06:59 06:59 Intake Total 4891 3105 1000 Output Total 300 Balance 4891 2805 1000 Weight 93.9 kg Physical Exam: General appearance: PRESENT: no acute distress, well-developed, well-nourished Head exam: PRESENT: atraumatic, normocephalic Eye exam: PRESENT: conjunctiva pink, EOMI, PERRLA. ABSENT: scleral icterus Mouth exam: PRESENT: moist Respiratory exam: PRESENT: clear to auscultation lena Cardiovascular exam: PRESENT: RRR. ABSENT: diastolic murmur, rubs, systolic murmur GI/Abdominal exam: PRESENT: normal bowel sounds, soft. ABSENT: distended, guarding, mass, organolmegaly, rebound, tenderness Extremities exam: ABSENT: pedal edema Musculoskeletal exam: PRESENT: normal inspection Neurological exam: PRESENT: alert, awake, oriented to person, oriented to place , oriented to time, oriented to situation, CN II-XII grossly intact. ABSENT: motor sensory deficit Psychiatric exam: PRESENT: appropriate affect, normal mood. ABSENT: homicidal ideation, suicidal ideation Skin exam: PRESENT: dry, intact, warm. ABSENT: cyanosis, rash Results Laboratory Results: 10/17/17 04:59 10/17/17 04:59 Impressions: Limited or Localized CT 10/14/17 00:00 IMPRESSION: Large obstructing calculus at the level of the mid left ureter as noted above. There is a 2nd small ureteric calculus just proximal to the obstructing calculus. Small nonobstructing left renal calculi are identified. Other findings as noted above Assessment & Plan - Diagnosis (1) Systemic inflammatory response syndrome (SIRS) due to infection Is this a current diagnosis for this admission?: Yes (2) Left ureteral calculus Is this a current diagnosis for this admission?: Yes (3) Complicated urinary tract infection Is this a current diagnosis for this admission?: Yes (4) Diabetes mellitus type 2 in nonobese Is this a current diagnosis for this admission?: Yes (5) HTN (hypertension) Qualifiers: Hypertension type: essential hypertension Qualified Code(s): I10 - Essential (primary) hypertension Is this a current diagnosis for this admission?: Yes (6) HLD (hyperlipidemia) Qualifiers: Hyperlipidemia type: pure hypercholesterolemia Qualified Code(s): E78.00 - Pure hypercholesterolemia, unspecified Is this a current diagnosis for this admission?: Yes (7) GERD (gastroesophageal reflux disease) Qualifiers: Esophagitis presence: without esophagitis Qualified Code(s): K21.9 - Gastro -esophageal reflux disease without esophagitis Is this a current diagnosis for this admission?: Yes - Time Time Spent with patient: 25-34 minutes Medications reviewed and adjusted accordingly: Yes Anticipated discharge: Home Within: within 48 hours - Inpatient Certification Based on my medical assessment, after consideration of the patient's comorbidities, presenting symptoms, or acuity I expect that the services needed warrant INPATIENT care.: Yes I certify that my determination is in accordance with my understanding of Medicare's requirements for reasonable and necessary INPATIENT services [42 CFR 412.3e].: Yes Medical Necessity: Need Close Monitoring Due to Risk of Patient Decompensation, Need For IV Fluids, Need For Continuous Telemetry Monitoring, Need for IV Antibiotics, Risk of Complication if Not Cared For in Hospital Post Hospital Care: D/C Police Matron Documentation - Plan Summary Plan Summary: See attending physician orders. Day # 4 today for blood culture with no growth. Consider changing antibiotic to oral route after 5 days in anticipation with possible discharge in the next couple of days.
[2017-10-18] MEDS: ATORVASTATIN CALCIUM 10 MG TABLET PO SCH (21:47)
[2017-10-18] MEDS: ZOLPIDEM TARTRATE 5 MG TABLET PO PRN (21:47)
[2017-10-18] MEDS: ONDANSETRON HCL INJ/PF 4 MG/2 ML SDV IV PRN (21:47)
[2017-10-18] MEDS: OXYCODONE-ACETAMINOPHEN 5-325 MG TABLET PO PRN (22:29)
[2017-10-19] MEDS: MEROPENEM 500 MG in NORMAL SALINE 100 ML IV SCH ×3 (02:20→20:19)
[2017-10-19] MEDS: LANSOPRAZOLE 30 MG TAB.RAP.DR PO SCH (06:31)
--- NOTE | 2017-10-19 07:57 | PDOC PROGRESS REPORT ---
Subjective Progress Note for:: 10/19/17 Subjective:: Patient reported recurrent mid epigastric abdominal pain with nausea but no definite vomiting. No diarrhea, dysuria or hematuria. No chest pain or difficulty with breathing. No fever or chills. Reason For Visit: SIRS WITH UTI AND POSSIBLE KIDNEY STONE Physical Exam Vital Signs: Temp Pulse Resp BP Pulse Ox 98.9 F 99 16 150/92 H 96 10/19/17 00:40 10/19/17 07:00 10/19/17 00:40 10/19/17 00:40 10/19/17 00:40 Intake & Output 10/18/17 10/19/17 10/20/17 06:59 06:59 06:59 Intake Total 3105 3280 Output Total 300 650 Balance 2805 2630 Weight 93.9 kg Physical Exam: General appearance: PRESENT: no acute distress, well-developed, well-nourished Head exam: PRESENT: atraumatic, normocephalic Eye exam: PRESENT: conjunctiva pink, EOMI, PERRLA. ABSENT: scleral icterus Mouth exam: PRESENT: moist Respiratory exam: PRESENT: clear to auscultation lena Cardiovascular exam: PRESENT: RRR. ABSENT: diastolic murmur, rubs, systolic murmur GI/Abdominal exam: PRESENT: normal bowel sounds, soft. ABSENT: distended, guarding, mass, organomegaly, rebound, tenderness Extremities exam: ABSENT: pedal edema Musculoskeletal exam: PRESENT: normal inspection Neurological exam: PRESENT: alert, awake, oriented to person, oriented to place , oriented to time, oriented to situation, CN II-XII grossly intact. ABSENT: motor sensory deficit Psychiatric exam: PRESENT: appropriate affect, normal mood. ABSENT: homicidal ideation, suicidal ideation Skin exam: PRESENT: dry, intact, warm. ABSENT: cyanosis, rash Results Laboratory Results: 10/17/17 04:59 10/17/17 04:59 Impressions: Limited or Localized CT 10/14/17 00:00 IMPRESSION: Large obstructing calculus at the level of the mid left ureter as noted above. There is a 2nd small ureteric calculus just proximal to the obstructing calculus. Small nonobstructing left renal calculi are identified. Other findings as noted above Assessment & Plan - Diagnosis (1) Systemic inflammatory response syndrome (SIRS) due to infection Is this a current diagnosis for this admission?: Yes (2) Left ureteral calculus Is this a current diagnosis for this admission?: Yes (3) Complicated urinary tract infection Is this a current diagnosis for this admission?: Yes (4) Diabetes mellitus type 2 in nonobese Is this a current diagnosis for this admission?: Yes (5) HTN (hypertension) Qualifiers: Hypertension type: essential hypertension Qualified Code(s): I10 - Essential (primary) hypertension Is this a current diagnosis for this admission?: Yes (6) HLD (hyperlipidemia) Qualifiers: Hyperlipidemia type: pure hypercholesterolemia Qualified Code(s): E78.00 - Pure hypercholesterolemia, unspecified Is this a current diagnosis for this admission?: Yes (7) GERD (gastroesophageal reflux disease) Qualifiers: Esophagitis presence: without esophagitis Qualified Code(s): K21.9 - Gastro -esophageal reflux disease without esophagitis Is this a current diagnosis for this admission?: Yes - Time Time Spent with patient: 25-34 minutes Medications reviewed and adjusted accordingly: Yes Anticipated discharge: Home Within: Other - Inpatient Certification Based on my medical assessment, after consideration of the patient's comorbidities, presenting symptoms, or acuity I expect that the services needed warrant INPATIENT care.: Yes I certify that my determination is in accordance with my understanding of Medicare's requirements for reasonable and necessary INPATIENT services [42 CFR 412.3e].: Yes Medical Necessity: Need Close Monitoring Due to Risk of Patient Decompensation, Need For IV Fluids, Need For Continuous Telemetry Monitoring, Need for Pain Control, Need for IV Antibiotics, Risk of Complication if Not Cared For in Hospital Post Hospital Care: D/C Medical Office Scheduler Documentation - Plan Summary Plan Summary: Continue Meropenem coverage. Blood culture remain no growth. Obtain stool for C. difficile toxin titer, CBC with diff, CMP. Follow up on blood culture findings. Obtain abdominal ultrasound evaluation.
[2017-10-19] MEDS: NORMAL SALINE 1000 ML 1,000 ML IV PRN (08:55)
[2017-10-19] MEDS: ONDANSETRON HCL INJ/PF 4 MG/2 ML SDV IV PRN (08:56)
[2017-10-19] MEDS: ENOXAPARIN SODIUM INJ 40 MG/0.4 ML DISP.SYRIN SUBCUT SCH (09:03)
[2017-10-19] MEDS: METFORMIN HCL 850 MG TABLET PO SCH ×2 (09:15→22:04)
[2017-10-19 11:46] LABS: ABSOLUTE BASOPHILS # (AUTO) 0.1 10^3/uL (0.0-0.2); ABSOLUTE EOSINOPHILS # (AUTO) 0.1 10^3/uL (0.0-0.6); ABSOLUTE LYMPHOCYTES (AUTO) 2.3 10^3/uL (0.5-4.7); ABSOLUTE MONOCYTES (AUTO) 1.3 10^3/uL (0.1-1.4); ABSOLUTE NEUT (AUTO) 11.2 10^3/uL (1.7-8.2); BASOPHILS % (AUTO) 0.4 % (0-2); EOSINOPHILS % (AUTO) 0.8 % (0-6); HEMATOCRIT 39.7 % (37.9-51.0); LYMPHOCYTES % (AUTO) 15.6 % (13-45); MEAN CORPUSCULAR HGB CONC 35.4 g/dL (32.0-36.0); MEAN CORPUSCULAR VOLUME 88 fl (80-97); MONOCYTES % (AUTO) 8.6 % (3-13); PLATELET COUNT 321 10^3/uL (150-450); RED BLOOD COUNT 4.53 10^6/uL (4.35-5.55); RED CELL DISTRIBUTION WIDTH 12.4 % (11.5-14.0); SEGMENTED NEUTROPHILS % (AUTO) 74.6 % (42-78); TOTAL CELLS COUNTED % (AUTO) 100 %
[2017-10-19 12:00] LABS: ALANINE AMINOTRANSFERASE 51 U/L (21-72); ALBUMIN 3.9 g/dL (3.5-5.0); ALKALINE PHOSPHATASE 119 U/L (38-126); ANION GAP 12 (5-19); ASPARTATE AMINO TRANSFERASE 30 U/L (17-59); BILIRUBIN,DIRECT 0.4 mg/dL (0.0-0.4); BILIRUBIN,TOTAL 0.7 mg/dL (0.2-1.3); BLOOD UREA NITROGEN 16 mg/dL (7-20); CALCIUM 9.6 mg/dL (8.4-10.2); CARBON DIOXIDE 26 mmol/L (22-30); CHLORIDE 100 mmol/L (98-107); GLUCOSE 129 mg/dL (75-110); POTASSIUM 3.9 mmol/L (3.6-5.0); SODIUM 137.9 mmol/L (137-145); TOTAL PROTEIN 6.8 g/dL (6.3-8.2)
[2017-10-19] MEDS: RAMIPRIL 10 MG CAPSULE PO SCH (12:00)
--- NOTE | 2017-10-19 18:07 | RADIOLOGY REPORT (SQ) ---
EXAM DESCRIPTION: U/S ABDOMEN COMPLETE W/DOPPLER COMPLETED DATE/TIME: 10/19/2017 5:55 pm REASON FOR STUDY: Abdominal pain, Lf. mid ureter obstructing calculi COMPARISON: Abdominal CT scan dated 10/14/2017 TECHNIQUE: Dynamic and static grayscale images acquired of the abdomen and recorded on PACS. Additio nal selected color Doppler and spectral images recorded. LIMITATIONS: Study is limited due to overlying bowel gas. FINDINGS: PANCREAS: No masses. Visualized pancreatic duct normal caliber. LIVER: No masses. Echotexture normal. LIVER VASCULATURE: Normal directional flow of the main portal vein and hepatic veins. GALLBLADDER: No stones. Normal wall thickness. No pericholecystic fluid. ULTRASOUND-DETECTED MIRELES'S SIGN: Negative. INTRAHEPATIC DUCTS AND COMMON DUCT: CBD and intrahepatic ducts normal caliber. No filling defects. INFERIOR VENA CAVA: Normal flow. AORTA: No aneurysm. RIGHT KIDNEY: 11.4 cm in length. Normal echogenicity. No solid or suspicious masses. No hydron ephrosis. No calcifications. LEFT KIDNEY: 12.4 cm in length. Normal echogenicity. No solid or suspicious masses. There is h ydronephrosis of the left kidney which was present on the previous CT scan. The previously describe d left renal calculi are not definitely identified. SPLEEN: Normal size. No solid masses. PERITONEAL AND PLEURAL SPACES: No ascites or effusions. OTHER: No other significant finding. IMPRESSION: The hydronephrosis of the left kidney which was present on the previous CT scan. No oth er significant intra-abdominal abnormalities were identified. Other findings as noted above TECHNICAL DOCUMENTATION: JOB ID: [id number] [employer]- All Rights Reserved
[2017-10-19] MEDS: TAMSULOSIN HCL 0.4 MG CAP.SR.24H PO SCH (20:19)
[2017-10-19] MEDS: ATORVASTATIN CALCIUM 10 MG TABLET PO SCH (22:04)
[2017-10-19] MEDS: ZOLPIDEM TARTRATE 5 MG TABLET PO PRN (22:04)
[2017-10-20] MEDS: MEROPENEM 500 MG in NORMAL SALINE 100 ML IV SCH ×2 (03:21→09:25)
[2017-10-20 05:32] LABS: ABSOLUTE BASOPHILS # (AUTO) 0.1 10^3/uL (0.0-0.2); ABSOLUTE EOSINOPHILS # (AUTO) 0.2 10^3/uL (0.0-0.6); ABSOLUTE LYMPHOCYTES (AUTO) 2.1 10^3/uL (0.5-4.7); ABSOLUTE MONOCYTES (AUTO) 1.3 10^3/uL (0.1-1.4); ABSOLUTE NEUT (AUTO) 11.5 10^3/uL (1.7-8.2); BASOPHILS % (AUTO) 0.5 % (0-2); EOSINOPHILS % (AUTO) 1.1 % (0-6); HEMATOCRIT 39.1 % (37.9-51.0); HEMOGLOBIN 13.6 g/dL (13.5-17.0); LYMPHOCYTES % (AUTO) 13.9 % (13-45); MEAN CORPUSCULAR HEMOGLOBIN 30.7 pg (27.0-33.4); MEAN CORPUSCULAR HGB CONC 34.8 g/dL (32.0-36.0); MEAN CORPUSCULAR VOLUME 88 fl (80-97); MONOCYTES % (AUTO) 8.6 % (3-13); PLATELET COUNT 300 10^3/uL (150-450); RED BLOOD COUNT 4.43 10^6/uL (4.35-5.55); RED CELL DISTRIBUTION WIDTH 12.6 % (11.5-14.0); SEGMENTED NEUTROPHILS % (AUTO) 75.9 % (42-78); TOTAL CELLS COUNTED % (AUTO) 100 %; WHITE BLOOD COUNT 15.1 10^3/uL (4.0-10.5)
[2017-10-20] MEDS: LANSOPRAZOLE 30 MG TAB.RAP.DR PO SCH (05:46)
[2017-10-20] MEDS: ENOXAPARIN SODIUM INJ 40 MG/0.4 ML DISP.SYRIN SUBCUT SCH (09:11)
[2017-10-20] MEDS: RAMIPRIL 10 MG CAPSULE PO SCH (09:17)
[2017-10-20] MEDS: METFORMIN HCL 850 MG TABLET PO SCH ×2 (09:17→20:29)
[2017-10-20] MEDS ORDERED: NITROFURANTOIN MONOHYD/M-CRYST 100 MG CAPSULE PO SCH (10:00)
[2017-10-20] MEDS ORDERED: METRONIDAZOLE 500 MG TABLET PO ONE (10:00)
[2017-10-20] MEDS: ONDANSETRON HCL INJ/PF 4 MG/2 ML SDV IV PRN ×3 (12:09→20:29)
[2017-10-20] MEDS: OXYCODONE-ACETAMINOPHEN 5-325 MG TABLET PO PRN ×3 (12:12→20:29)
[2017-10-20] MEDS: METRONIDAZOLE 500 MG TABLET PO SCH ×2 (13:24→20:29)
[2017-10-20] MEDS: TAMSULOSIN HCL 0.4 MG CAP.SR.24H PO SCH (17:15)
--- NOTE | 2017-10-20 17:32 | PDOC PROGRESS REPORT ---
Subjective Progress Note for:: 10/20/17 Subjective:: Patient denied abdominal pain. No significant nausea or vomiting. No dysuria or hematuria. No chest pain or difficulty with breathing. No fever or chills. Ambulate on the floor Reason For Visit: SIRS WITH UTI AND POSSIBLE KIDNEY STONE Physical Exam Vital Signs: Temp Pulse Resp BP Pulse Ox 99.6 F 97 17 130/81 H 97 10/20/17 16:45 10/20/17 16:45 10/20/17 16:45 10/20/17 16:45 10/20/17 16:45 Intake & Output 10/19/17 10/20/17 10/21/17 06:59 06:59 06:59 Intake Total 3280 3270 Output Total 650 950 Balance 2630 2320 Physical Exam: General appearance: PRESENT: no acute distress, well-developed, well-nourished Head exam: PRESENT: atraumatic, normocephalic Eye exam: PRESENT: conjunctiva pink, EOMI, PERRLA. ABSENT: scleral icterus Mouth exam: PRESENT: moist Respiratory exam: PRESENT: clear to auscultation lena Cardiovascular exam: PRESENT: RRR. ABSENT: diastolic murmur, rubs, systolic murmur GI/Abdominal exam: PRESENT: normal bowel sounds, soft. ABSENT: distended, guarding, mass, organomegaly, rebound, tenderness Extremities exam: ABSENT: pedal edema Musculoskeletal exam: PRESENT: normal inspection Neurological exam: PRESENT: alert, awake, oriented to person, oriented to place , oriented to time, oriented to situation, CN II-XII grossly intact. ABSENT: motor sensory deficit Psychiatric exam: PRESENT: appropriate affect, normal mood. ABSENT: homicidal ideation, suicidal ideation Skin exam: PRESENT: dry, intact, warm. ABSENT: cyanosis, rash Results Laboratory Results: 10/20/17 04:57 10/19/17 11:27 10/20/17 04:57 WBC 15.1 H RBC 4.43 Hgb 13.6 Hct 39.1 MCV 88 MCH 30.7 MCHC 34.8 RDW 12.6 Plt Count 300 Seg Neutrophils % 75.9 Lymphocytes % 13.9 Monocytes % 8.6 Eosinophils % 1.1 Basophils % 0.5 Absolute Neutrophils 11.5 H Absolute Lymphocytes 2.1 Absolute Monocytes 1.3 Absolute Eosinophils 0.2 Absolute Basophils 0.1 10/14/17 15:06 Blood Blood Culture - Final NO GROWTH IN 5 DAYS Impressions: Limited or Localized CT 10/14/17 00:00 IMPRESSION: Large obstructing calculus at the level of the mid left ureter as noted above. There is a 2nd small ureteric calculus just proximal to the obstructing calculus. Small nonobstructing left renal calculi are identified. Other findings as noted above Abdomen Ultrasound 10/19/17 00:00 IMPRESSION: The hydronephrosis of the left kidney which was present on the previous CT scan. No other significant intra-abdominal abnormalities were identified. Other findings as noted above Assessment & Plan - Diagnosis (1) Systemic inflammatory response syndrome (SIRS) due to infection Is this a current diagnosis for this admission?: Yes (2) Left ureteral calculus Is this a current diagnosis for this admission?: Yes (3) Complicated urinary tract infection Is this a current diagnosis for this admission?: Yes (4) Diabetes mellitus type 2 in nonobese Is this a current diagnosis for this admission?: Yes (5) HTN (hypertension) Qualifiers: Hypertension type: essential hypertension Qualified Code(s): I10 - Essential (primary) hypertension Is this a current diagnosis for this admission?: Yes (6) HLD (hyperlipidemia) Qualifiers: Hyperlipidemia type: pure hypercholesterolemia Qualified Code(s): E78.00 - Pure hypercholesterolemia, unspecified Is this a current diagnosis for this admission?: Yes (7) GERD (gastroesophageal reflux disease) Qualifiers: Esophagitis presence: without esophagitis Qualified Code(s): K21.9 - Gastro -esophageal reflux disease without esophagitis Is this a current diagnosis for this admission?: Yes - Time Time Spent with patient: 25-34 minutes Medications reviewed and adjusted accordingly: Yes Anticipated discharge: Home with Homehealth Within: Other - Inpatient Certification Based on my medical assessment, after consideration of the patient's comorbidities, presenting symptoms, or acuity I expect that the services needed warrant INPATIENT care.: Yes I certify that my determination is in accordance with my understanding of Medicare's requirements for reasonable and necessary INPATIENT services [42 CFR 412.3e].: Yes Medical Necessity: Need Close Monitoring Due to Risk of Patient Decompensation, Need For IV Fluids, Need For Continuous Telemetry Monitoring, Need for IV Antibiotics, Risk of Complication if Not Cared For in Hospital Post Hospital Care: D/C Bulk Truck Driver Documentation - Plan Summary Plan Summary: Follow up on pending stool C. difficile toxin titer report. Add Macrobid 100 mg po bid in view of worsening leukocytosis. Continue IV fluid support.
[2017-10-20] MEDS: ATORVASTATIN CALCIUM 10 MG TABLET PO SCH (20:28)
[2017-10-21] MEDS: ONDANSETRON HCL INJ/PF 4 MG/2 ML SDV IV PRN ×4 (02:02→21:16)
[2017-10-21] MEDS: OXYCODONE-ACETAMINOPHEN 5-325 MG TABLET PO PRN ×4 (02:02→21:16)
[2017-10-21] MEDS: ZOLPIDEM TARTRATE 5 MG TABLET PO PRN (02:02)
[2017-10-21] MEDS: NORMAL SALINE 1000 ML 1,000 ML IV PRN (06:40)
[2017-10-21] MEDS: LANSOPRAZOLE 30 MG TAB.RAP.DR PO SCH (06:41)
[2017-10-21] MEDS: METRONIDAZOLE 500 MG TABLET PO SCH (06:41)
[2017-10-21 07:54] LABS: HEMATOCRIT 38.6 % (37.9-51.0); HEMOGLOBIN 13.2 g/dL (13.5-17.0); MEAN CORPUSCULAR HEMOGLOBIN 30.2 pg (27.0-33.4); MEAN CORPUSCULAR HGB CONC 34.3 g/dL (32.0-36.0); MEAN CORPUSCULAR VOLUME 88 fl (80-97); PLATELET COUNT 290 10^3/uL (150-450); RED BLOOD COUNT 4.38 10^6/uL (4.35-5.55); RED CELL DISTRIBUTION WIDTH 12.1 % (11.5-14.0); WHITE BLOOD COUNT 20.1 10^3/uL (4.0-10.5)
[2017-10-21 08:47] LABS: ABSOLUTE LYMPHOCYTES# (MANUAL) 1.2 10^3/uL (0.5-4.7); ABSOLUTE MONOCYTES # (MANUAL) 0.4 10^3/uL (0.1-1.4); ABSOLUTE NEUTROPHILS# (MANUAL) 18.5 10^3/uL (1.7-8.2); BAND NEUTROPHILS % (MANUAL) 2 % (3-5); BASOPHILS % (MANUAL) 0 % (0-2); EOSINOPHILS % (MANUAL) 0 % (0-6); LYMPHOCYTES % (MANUAL) 6 % (13-45); MONOCYTES % (MANUAL) 2 % (3-13); PLATELET CLUMPS PRESENT; PLATELET LARGE PRESENT; POLYCHROMASIA SLIGHT; SEGMENTED NEUTROPHILS % (MAN) 90 % (42-78); TOTAL CELLS COUNTED 100; TOXIC GRANULATION SLIGHT
[2017-10-21] MEDS: METFORMIN HCL 850 MG TABLET PO SCH ×2 (10:12→21:16)
[2017-10-21] MEDS: RAMIPRIL 10 MG CAPSULE PO SCH (10:13)
[2017-10-21] MEDS: ENOXAPARIN SODIUM INJ 40 MG/0.4 ML DISP.SYRIN SUBCUT SCH (10:15)
[2017-10-21] MEDS: METRONIDAZOLE 500 MG/NS RTU 100 ML IV SCH ×3 (10:26→21:16)
[2017-10-21] MEDS: INSULIN LISPRO 100 UNIT/ML 3 ML VIAL SUBCUT PRN (12:00)
[2017-10-21] MEDS: VANCOMYCIN HCL INJ 500 MG VIAL PO SCH ×2 (12:02→18:54)
--- NOTE | 2017-10-21 14:31 | PDOC PROGRESS REPORT ---
Subjective Progress Note for:: 10/21/17 Subjective:: Patient reported no diarrhea since early this morning. No abdominal pain or vomiting but slight nausea. No fever or chills. No chest pain or difficulty with breathing. Reason For Visit: SIRS WITH UTI AND POSSIBLE KIDNEY STONE Physical Exam Vital Signs: Temp Pulse Resp BP Pulse Ox 98.4 F 119 H 16 122/69 97 10/21/17 11:18 10/21/17 11:18 10/21/17 11:18 10/21/17 11:18 10/21/17 11:18 Intake & Output 10/20/17 10/21/17 10/22/17 06:59 06:59 06:59 Intake Total 3270 2510 Output Total 950 800 Balance 2320 1710 Physical Exam: General appearance: PRESENT: no acute distress, well-developed, well-nourished Head exam: PRESENT: atraumatic, normocephalic Eye exam: PRESENT: conjunctiva pink, EOMI, PERRLA. ABSENT: scleral icterus Mouth exam: PRESENT: moist Respiratory exam: PRESENT: clear to auscultation lena Cardiovascular exam: PRESENT: RRR. ABSENT: diastolic murmur, rubs, systolic murmur GI/Abdominal exam: PRESENT: mid abdominal tenderness, normal bowel sounds, soft. ABSENT: distended, guarding, mass, organomegaly, rebound, Extremities exam: ABSENT: pedal edema Musculoskeletal exam: PRESENT: normal inspection Neurological exam: PRESENT: alert, awake, oriented to person, oriented to place , oriented to time, oriented to situation, CN II-XII grossly intact. ABSENT: motor sensory deficit Psychiatric exam: PRESENT: appropriate affect, normal mood. ABSENT: homicidal ideation, suicidal ideation Skin exam: PRESENT: dry, intact, warm. ABSENT: cyanosis, rash Results Laboratory Results: 10/21/17 07:13 10/19/17 11:27 10/21/17 07:13 WBC 20.1 H RBC 4.38 Hgb 13.2 L Hct 38.6 MCV 88 MCH 30.2 MCHC 34.3 RDW 12.1 Plt Count 290 Seg Neutrophils % Not Reportable Lymphocytes % Not Reportable Monocytes % Not Reportable Eosinophils % Not Reportable Basophils % Not Reportable Absolute Neutrophils Not Reportable Absolute Lymphocytes Not Reportable Absolute Monocytes Not Reportable Absolute Eosinophils Not Reportable Absolute Basophils Not Reportable Impressions: Limited or Localized CT 10/14/17 00:00 IMPRESSION: Large obstructing calculus at the level of the mid left ureter as noted above. There is a 2nd small ureteric calculus just proximal to the obstructing calculus. Small nonobstructing left renal calculi are identified. Other findings as noted above Abdomen Ultrasound 10/19/17 00:00 IMPRESSION: The hydronephrosis of the left kidney which was present on the previous CT scan. No other significant intra-abdominal abnormalities were identified. Other findings as noted above Assessment & Plan - Diagnosis (1) Systemic inflammatory response syndrome (SIRS) due to infection Is this a current diagnosis for this admission?: Yes (2) Left ureteral calculus Is this a current diagnosis for this admission?: Yes (3) Complicated urinary tract infection Is this a current diagnosis for this admission?: Yes (4) Diabetes mellitus type 2 in nonobese Is this a current diagnosis for this admission?: Yes (5) HTN (hypertension) Qualifiers: Hypertension type: essential hypertension Qualified Code(s): I10 - Essential (primary) hypertension Is this a current diagnosis for this admission?: Yes (6) HLD (hyperlipidemia) Qualifiers: Hyperlipidemia type: pure hypercholesterolemia Qualified Code(s): E78.00 - Pure hypercholesterolemia, unspecified Is this a current diagnosis for this admission?: Yes (7) GERD (gastroesophageal reflux disease) Qualifiers: Esophagitis presence: without esophagitis Qualified Code(s): K21.9 - Gastro -esophageal reflux disease without esophagitis Is this a current diagnosis for this admission?: Yes (8) Recurrent Clostridium difficile diarrhea Is this a current diagnosis for this admission?: Yes Plan: D/C oral Metronidazole. Start on IV Metronidazole 500mg q8hrs and oral Vancomycoin 125 mg p.o g9optxm due to worsening leukocytosis. Maintain on IV fluid support. Repeat CBC with diff and BMP in AM. - Time Time Spent with patient: 25-34 minutes Medications reviewed and adjusted accordingly: Yes Anticipated discharge: Home Within: Other - Inpatient Certification Based on my medical assessment, after consideration of the patient's comorbidities, presenting symptoms, or acuity I expect that the services needed warrant INPATIENT care.: Yes I certify that my determination is in accordance with my understanding of Medicare's requirements for reasonable and necessary INPATIENT services [42 CFR 412.3e].: Yes Medical Necessity: Need Close Monitoring Due to Risk of Patient Decompensation, Need For IV Fluids, Need For Continuous Telemetry Monitoring, Need for IV Antibiotics, Risk of Complication if Not Cared For in Hospital Post Hospital Care: D/C Tub Rider Documentation - Plan Summary Plan Summary: See attending physician orders.
[2017-10-21] MEDS: TAMSULOSIN HCL 0.4 MG CAP.SR.24H PO SCH (17:31)
[2017-10-21] MEDS ORDERED: ZOLPIDEM TARTRATE 5 MG TABLET ONE (21:27)
[2017-10-21] MEDS: ATORVASTATIN CALCIUM 10 MG TABLET PO SCH (21:28)
[2017-10-22] MEDS: VANCOMYCIN HCL INJ 500 MG VIAL PO SCH ×4 (02:54→20:20)
[2017-10-22] MEDS: METRONIDAZOLE 500 MG/NS RTU 100 ML IV SCH ×4 (02:55→20:23)
[2017-10-22] MEDS: OXYCODONE-ACETAMINOPHEN 5-325 MG TABLET PO PRN ×4 (02:56→20:24)
[2017-10-22] MEDS: ONDANSETRON HCL INJ/PF 4 MG/2 ML SDV IV PRN ×5 (02:56→18:51)
[2017-10-22 05:09] LABS: ABSOLUTE EOSINOPHILS # (AUTO) 0.1 10^3/uL (0.0-0.6); ABSOLUTE LYMPHOCYTES (AUTO) 1.4 10^3/uL (0.5-4.7); ABSOLUTE MONOCYTES (AUTO) 1.3 10^3/uL (0.1-1.4); ABSOLUTE NEUT (AUTO) 9.8 10^3/uL (1.7-8.2); BASOPHILS % (AUTO) 0.3 % (0-2); EOSINOPHILS % (AUTO) 1.1 % (0-6); HEMATOCRIT 36.6 % (37.9-51.0); HEMOGLOBIN 12.7 g/dL (13.5-17.0); LYMPHOCYTES % (AUTO) 11.4 % (13-45); MEAN CORPUSCULAR HEMOGLOBIN 30.6 pg (27.0-33.4); MEAN CORPUSCULAR HGB CONC 34.6 g/dL (32.0-36.0); MEAN CORPUSCULAR VOLUME 89 fl (80-97); MONOCYTES % (AUTO) 10.5 % (3-13); PLATELET COUNT 287 10^3/uL (150-450); RED BLOOD COUNT 4.14 10^6/uL (4.35-5.55); RED CELL DISTRIBUTION WIDTH 12.3 % (11.5-14.0); SEGMENTED NEUTROPHILS % (AUTO) 76.7 % (42-78); TOTAL CELLS COUNTED % (AUTO) 100 %; WHITE BLOOD COUNT 12.7 10^3/uL (4.0-10.5)
[2017-10-22 05:31] LABS: ANION GAP 10 (5-19); BLOOD UREA NITROGEN 16 mg/dL (7-20); CALCIUM 8.7 mg/dL (8.4-10.2); CARBON DIOXIDE 24 mmol/L (22-30); CHLORIDE 101 mmol/L (98-107); GLUCOSE 140 mg/dL (75-110); POTASSIUM 3.6 mmol/L (3.6-5.0); SODIUM 135.1 mmol/L (137-145)
[2017-10-22] MEDS: LANSOPRAZOLE 30 MG TAB.RAP.DR PO SCH (06:23)
[2017-10-22] MEDS: ENOXAPARIN SODIUM INJ 40 MG/0.4 ML DISP.SYRIN SUBCUT SCH (09:20)
[2017-10-22] MEDS: METFORMIN HCL 850 MG TABLET PO SCH ×2 (09:21→20:33)
[2017-10-22] MEDS: NORMAL SALINE 1000 ML 1,000 ML IV PRN (09:21)
[2017-10-22] MEDS: RAMIPRIL 10 MG CAPSULE PO SCH (09:22)
--- NOTE | 2017-10-22 12:41 | PDOC PROGRESS REPORT ---
Subjective Progress Note for:: 10/22/17 Subjective:: Patient reported intermittent mid abdominal pain. Nausea but no vomiting. No fever or chills. No chest pain or difficulty with breathing. Reason For Visit: SIRS WITH UTI AND POSSIBLE KIDNEY STONE Physical Exam Vital Signs: Temp Pulse Resp BP Pulse Ox 98.8 F 89 16 122/75 97 10/22/17 11:27 10/22/17 11:27 10/22/17 11:27 10/22/17 11:27 10/22/17 11:27 Intake & Output 10/21/17 10/22/17 10/23/17 06:59 06:59 06:59 Intake Total 2510 2250 Output Total 800 1 Balance 1710 2249 Physical Exam: General appearance: PRESENT: no acute distress, well-developed, well-nourished Head exam: PRESENT: atraumatic, normocephalic Eye exam: PRESENT: conjunctiva pink, EOMI, PERRLA. ABSENT: scleral icterus Mouth exam: PRESENT: moist Respiratory exam: PRESENT: clear to auscultation lena Cardiovascular exam: PRESENT: RRR. ABSENT: diastolic murmur, rubs, systolic murmur GI/Abdominal exam: PRESENT: mid abdominal tenderness, normal bowel sounds, soft. ABSENT: distended, guarding, mass, organomegaly, rebound, Extremities exam: ABSENT: pedal edema Musculoskeletal exam: PRESENT: normal inspection Neurological exam: PRESENT: alert, awake, oriented to person, oriented to place , oriented to time, oriented to situation, CN II-XII grossly intact. ABSENT: motor sensory deficit Psychiatric exam: PRESENT: appropriate affect, normal mood. ABSENT: homicidal ideation, suicidal ideation Skin exam: PRESENT: dry, intact, warm. ABSENT: cyanosis, rash Results Laboratory Results: 10/22/17 04:29 10/22/17 04:29 10/22/17 10/22/17 04:29 04:29 WBC 12.7 H RBC 4.14 L Hgb 12.7 L Hct 36.6 L MCV 89 MCH 30.6 MCHC 34.6 RDW 12.3 Plt Count 287 Seg Neutrophils % 76.7 Lymphocytes % 11.4 L Monocytes % 10.5 Eosinophils % 1.1 Basophils % 0.3 Absolute Neutrophils 9.8 H Absolute Lymphocytes 1.4 Absolute Monocytes 1.3 Absolute Eosinophils 0.1 Absolute Basophils 0.0 Sodium 135.1 L Potassium 3.6 Chloride 101 Carbon Dioxide 24 Anion Gap 10 BUN 16 Creatinine 1.20 Est GFR ( Amer) > 60 Est GFR (Non-Af Amer) > 60 Glucose 140 H Calcium 8.7 Impressions: Limited or Localized CT 10/14/17 00:00 IMPRESSION: Large obstructing calculus at the level of the mid left ureter as noted above. There is a 2nd small ureteric calculus just proximal to the obstructing calculus. Small nonobstructing left renal calculi are identified. Other findings as noted above Abdomen Ultrasound 10/19/17 00:00 IMPRESSION: The hydronephrosis of the left kidney which was present on the previous CT scan. No other significant intra-abdominal abnormalities were identified. Other findings as noted above Assessment & Plan - Diagnosis (1) Systemic inflammatory response syndrome (SIRS) due to infection Is this a current diagnosis for this admission?: Yes (2) Left ureteral calculus Is this a current diagnosis for this admission?: Yes (3) Complicated urinary tract infection Is this a current diagnosis for this admission?: Yes (4) Diabetes mellitus type 2 in nonobese Is this a current diagnosis for this admission?: Yes (5) HTN (hypertension) Qualifiers: Hypertension type: essential hypertension Qualified Code(s): I10 - Essential (primary) hypertension Is this a current diagnosis for this admission?: Yes (6) HLD (hyperlipidemia) Qualifiers: Hyperlipidemia type: pure hypercholesterolemia Qualified Code(s): E78.00 - Pure hypercholesterolemia, unspecified Is this a current diagnosis for this admission?: Yes (7) GERD (gastroesophageal reflux disease) Qualifiers: Esophagitis presence: without esophagitis Qualified Code(s): K21.9 - Gastro -esophageal reflux disease without esophagitis Is this a current diagnosis for this admission?: Yes (8) Recurrent Clostridium difficile diarrhea Is this a current diagnosis for this admission?: Yes - Time Time Spent with patient: 25-34 minutes Medications reviewed and adjusted accordingly: Yes Anticipated discharge: Home Within: Other - Inpatient Certification Based on my medical assessment, after consideration of the patient's comorbidities, presenting symptoms, or acuity I expect that the services needed warrant INPATIENT care.: Yes I certify that my determination is in accordance with my understanding of Medicare's requirements for reasonable and necessary INPATIENT services [42 CFR 412.3e].: Yes Medical Necessity: Need Close Monitoring Due to Risk of Patient Decompensation, Need For IV Fluids, Need For Continuous Telemetry Monitoring, Need for IV Antibiotics, Risk of Complication if Not Cared For in Hospital Post Hospital Care: D/C Lead Nuclear Medicine Technologist Documentation - Plan Summary Plan Summary: Continue IV Metronidazole and oral Vancomycin therapy. His leukocytosis is improving.
[2017-10-22] MEDS ORDERED: LANSOPRAZOLE 30 MG TAB.RAP.DR PO ONE (18:30)
[2017-10-22] MEDS: TAMSULOSIN HCL 0.4 MG CAP.SR.24H PO SCH (18:52)
[2017-10-22] MEDS: ATORVASTATIN CALCIUM 10 MG TABLET PO SCH (20:32)
[2017-10-22] MEDS: ZOLPIDEM TARTRATE 5 MG TABLET PO PRN (21:02)
[2017-10-23] MEDS: METRONIDAZOLE 500 MG/NS RTU 100 ML IV SCH ×2 (02:23→08:13)
[2017-10-23] MEDS: VANCOMYCIN HCL INJ 500 MG VIAL PO SCH ×4 (02:23→22:46)
[2017-10-23] MEDS: LANSOPRAZOLE 30 MG TAB.RAP.DR PO SCH (05:36)
[2017-10-23 06:03] LABS: ABSOLUTE BASOPHILS # (AUTO) 0.1 10^3/uL (0.0-0.2); ABSOLUTE EOSINOPHILS # (AUTO) 0.2 10^3/uL (0.0-0.6); ABSOLUTE LYMPHOCYTES (AUTO) 1.4 10^3/uL (0.5-4.7); ABSOLUTE MONOCYTES (AUTO) 1.2 10^3/uL (0.1-1.4); ABSOLUTE NEUT (AUTO) 7.9 10^3/uL (1.7-8.2); BASOPHILS % (AUTO) 0.5 % (0-2); EOSINOPHILS % (AUTO) 1.7 % (0-6); HEMATOCRIT 37.6 % (37.9-51.0); HEMOGLOBIN 13.1 g/dL (13.5-17.0); LYMPHOCYTES % (AUTO) 12.9 % (13-45); MEAN CORPUSCULAR HEMOGLOBIN 30.5 pg (27.0-33.4); MEAN CORPUSCULAR HGB CONC 34.8 g/dL (32.0-36.0); MEAN CORPUSCULAR VOLUME 88 fl (80-97); MONOCYTES % (AUTO) 11.1 % (3-13); PLATELET COUNT 288 10^3/uL (150-450); RED BLOOD COUNT 4.28 10^6/uL (4.35-5.55); RED CELL DISTRIBUTION WIDTH 12.5 % (11.5-14.0); SEGMENTED NEUTROPHILS % (AUTO) 73.8 % (42-78); TOTAL CELLS COUNTED % (AUTO) 100 %; WHITE BLOOD COUNT 10.8 10^3/uL (4.0-10.5)
[2017-10-23] MEDS: ONDANSETRON HCL INJ/PF 4 MG/2 ML SDV IV PRN ×4 (08:13→22:45)
[2017-10-23] MEDS: OXYCODONE-ACETAMINOPHEN 5-325 MG TABLET PO PRN ×3 (08:18→22:45)
[2017-10-23] MEDS: ENOXAPARIN SODIUM INJ 40 MG/0.4 ML DISP.SYRIN SUBCUT SCH (09:11)
[2017-10-23] MEDS: RAMIPRIL 10 MG CAPSULE PO SCH (09:20)
[2017-10-23] MEDS: METFORMIN HCL 850 MG TABLET PO SCH ×2 (12:00→22:46)
--- NOTE | 2017-10-23 15:41 | PDOC PROGRESS REPORT ---
Subjective Progress Note for:: 10/23/17 Subjective:: Patient reported intermittent nausea and mid abdominal pain, particularly with administration of Metronidazole. Episode of vomiting this morning. No fever or chills. No chest pain or difficulty with breathing. Reason For Visit: SIRS WITH UTI AND POSSIBLE KIDNEY STONE Physical Exam Vital Signs: Temp Pulse Resp BP Pulse Ox 99.3 F 77 16 117/63 95 10/23/17 12:00 10/23/17 14:00 10/23/17 12:00 10/23/17 12:00 10/23/17 12:00 Intake & Output 10/22/17 10/23/17 10/24/17 06:59 06:59 06:59 Intake Total 2250 2560 Output Total 1 3 Balance 2249 2557 Physical Exam: General appearance: PRESENT: no acute distress, well-developed, well-nourished Head exam: PRESENT: atraumatic, normocephalic Eye exam: PRESENT: conjunctiva pink, EOMI, PERRLA. ABSENT: scleral icterus Mouth exam: PRESENT: moist Respiratory exam: PRESENT: clear to auscultation lena Cardiovascular exam: PRESENT: RRR. ABSENT: diastolic murmur, rubs, systolic murmur GI/Abdominal exam: PRESENT: mid abdominal tenderness, normal bowel sounds, soft. ABSENT: distended, guarding, mass, organomegaly, rebound, Extremities exam: ABSENT: pedal edema Musculoskeletal exam: PRESENT: normal inspection Neurological exam: PRESENT: alert, awake, oriented to person, oriented to place , oriented to time, oriented to situation, CN II-XII grossly intact. ABSENT: motor sensory deficit Psychiatric exam: PRESENT: appropriate affect, normal mood. ABSENT: homicidal ideation, suicidal ideation Skin exam: PRESENT: dry, intact, warm. ABSENT: cyanosis, rash Results Laboratory Results: 10/23/17 04:37 10/22/17 04:29 10/23/17 04:37 WBC 10.8 H RBC 4.28 L Hgb 13.1 L Hct 37.6 L MCV 88 MCH 30.5 MCHC 34.8 RDW 12.5 Plt Count 288 Seg Neutrophils % 73.8 Lymphocytes % 12.9 L Monocytes % 11.1 Eosinophils % 1.7 Basophils % 0.5 Absolute Neutrophils 7.9 Absolute Lymphocytes 1.4 Absolute Monocytes 1.2 Absolute Eosinophils 0.2 Absolute Basophils 0.1 Impressions: Limited or Localized CT 10/14/17 00:00 IMPRESSION: Large obstructing calculus at the level of the mid left ureter as noted above. There is a 2nd small ureteric calculus just proximal to the obstructing calculus. Small nonobstructing left renal calculi are identified. Other findings as noted above Abdomen Ultrasound 10/19/17 00:00 IMPRESSION: The hydronephrosis of the left kidney which was present on the previous CT scan. No other significant intra-abdominal abnormalities were identified. Other findings as noted above Assessment & Plan - Diagnosis (1) Systemic inflammatory response syndrome (SIRS) due to infection Is this a current diagnosis for this admission?: Yes (2) Left ureteral calculus Is this a current diagnosis for this admission?: Yes (3) Complicated urinary tract infection Is this a current diagnosis for this admission?: Yes (4) Diabetes mellitus type 2 in nonobese Is this a current diagnosis for this admission?: Yes (5) HTN (hypertension) Qualifiers: Hypertension type: essential hypertension Qualified Code(s): I10 - Essential (primary) hypertension Is this a current diagnosis for this admission?: Yes (6) HLD (hyperlipidemia) Qualifiers: Hyperlipidemia type: pure hypercholesterolemia Qualified Code(s): E78.00 - Pure hypercholesterolemia, unspecified Is this a current diagnosis for this admission?: Yes (7) GERD (gastroesophageal reflux disease) Qualifiers: Esophagitis presence: without esophagitis Qualified Code(s): K21.9 - Gastro -esophageal reflux disease without esophagitis Is this a current diagnosis for this admission?: Yes (8) Recurrent Clostridium difficile diarrhea Is this a current diagnosis for this admission?: Yes - Time Time Spent with patient: 25-34 minutes Medications reviewed and adjusted accordingly: Yes Anticipated discharge: Home Within: within 24 hours - Inpatient Certification Based on my medical assessment, after consideration of the patient's comorbidities, presenting symptoms, or acuity I expect that the services needed warrant INPATIENT care.: Yes I certify that my determination is in accordance with my understanding of Medicare's requirements for reasonable and necessary INPATIENT services [42 CFR 412.3e].: Yes Medical Necessity: Need Close Monitoring Due to Risk of Patient Decompensation, Need For IV Fluids, Need For Continuous Telemetry Monitoring, Need for IV Antibiotics, Risk of Complication if Not Cared For in Hospital Post Hospital Care: D/C Crimp Setter Documentation - Plan Summary Plan Summary: D/C Metronidazole. Continue oral Vancomycin therapy. Maintain on IV fluid support. Obtain CBC with diff and BMP in AM.
[2017-10-23] MEDS: TAMSULOSIN HCL 0.4 MG CAP.SR.24H PO SCH (17:31)
[2017-10-23] MEDS: ZOLPIDEM TARTRATE 5 MG TABLET PO PRN (22:46)
[2017-10-23] MEDS: ATORVASTATIN CALCIUM 10 MG TABLET PO SCH (22:46)
[2017-10-24 05:29] LABS: ABSOLUTE BASOPHILS # (AUTO) 0.1 10^3/uL (0.0-0.2); ABSOLUTE EOSINOPHILS # (AUTO) 0.2 10^3/uL (0.0-0.6); ABSOLUTE MONOCYTES (AUTO) 0.8 10^3/uL (0.1-1.4); ABSOLUTE NEUT (AUTO) 5.4 10^3/uL (1.7-8.2); BASOPHILS % (AUTO) 0.6 % (0-2); EOSINOPHILS % (AUTO) 2.2 % (0-6); HEMATOCRIT 39.8 % (37.9-51.0); LYMPHOCYTES % (AUTO) 23.1 % (13-45); MEAN CORPUSCULAR HEMOGLOBIN 30.7 pg (27.0-33.4); MEAN CORPUSCULAR HGB CONC 35.3 g/dL (32.0-36.0); MEAN CORPUSCULAR VOLUME 87 fl (80-97); PLATELET COUNT 273 10^3/uL (150-450); RED BLOOD COUNT 4.56 10^6/uL (4.35-5.55); RED CELL DISTRIBUTION WIDTH 12.5 % (11.5-14.0); SEGMENTED NEUTROPHILS % (AUTO) 64.1 % (42-78); TOTAL CELLS COUNTED % (AUTO) 100 %; WHITE BLOOD COUNT 8.5 10^3/uL (4.0-10.5)
[2017-10-24 05:45] LABS: ANION GAP 10 (5-19); BLOOD UREA NITROGEN 11 mg/dL (7-20); CALCIUM 9.1 mg/dL (8.4-10.2); CARBON DIOXIDE 25 mmol/L (22-30); CHLORIDE 103 mmol/L (98-107); GLUCOSE 91 mg/dL (75-110); POTASSIUM 3.9 mmol/L (3.6-5.0); SODIUM 138.4 mmol/L (137-145)
[2017-10-24] MEDS: VANCOMYCIN HCL INJ 500 MG VIAL PO SCH ×3 (06:38→15:27)
[2017-10-24] MEDS: LANSOPRAZOLE 30 MG TAB.RAP.DR PO SCH (06:38)
[2017-10-24] MEDS: METFORMIN HCL 850 MG TABLET PO SCH (10:16)
[2017-10-24] MEDS: ENOXAPARIN SODIUM INJ 40 MG/0.4 ML DISP.SYRIN SUBCUT SCH (10:16)
[2017-10-24] MEDS: RAMIPRIL 10 MG CAPSULE PO SCH (10:17)
--- NOTE | 2017-10-24 17:33 | PDOC DISCHARGE SUMMARY ---
General - Admit/Disc Date/PCP Admission Date/Primary Care Provider: 10/14/17 10:09 ROSSY FINK Discharge Date: 10/24/17 - Discharge Diagnosis (1) Systemic inflammatory response syndrome (SIRS) due to infection Is this a current diagnosis for this admission?: Yes (2) Left ureteral calculus Is this a current diagnosis for this admission?: Yes (3) Complicated urinary tract infection Is this a current diagnosis for this admission?: Yes (4) Diabetes mellitus type 2 in nonobese Is this a current diagnosis for this admission?: Yes (5) HTN (hypertension) Is this a current diagnosis for this admission?: Yes (6) HLD (hyperlipidemia) Is this a current diagnosis for this admission?: Yes (7) GERD (gastroesophageal reflux disease) Is this a current diagnosis for this admission?: Yes (8) Recurrent Clostridium difficile diarrhea Is this a current diagnosis for this admission?: Yes - Additional Information Resuscitation Status: Full Code Prescriptions: Vancomycin HCl [Vancocin HCl] 125 mg PO Q6 #21 capsule Home Medications: Atorvastatin Calcium [Lipitor 10 mg Tablet] 10 mg PO QHS 10/14/17 Metformin HCl [Glucophage] 850 mg PO Q12 10/14/17 Ramipril [Altace 10 mg Capsule] 10 mg PO DAILY 10/14/17 Vancomycin HCl [Vancocin HCl] 125 mg PO Q6 #21 capsule 10/24/17 History of Present Illness Patient complains of: Abdominal and Left Flank pain History of Present Illness: NATALEE PETERS is a 62 year old male known to my practice who presented to office earlier today with compliant of abdominal pain, bloating, nausea, and vomiting. Patient described pain as cramping, localized to his mid abdomen and left flank regions. Patient reported that his pain started abruptly earlier this morning and have gradually worsen. He denied any definite fever or chills. He denied any blood in his urine, heartburn, or shortness of breath. Patient has history of kidney stone. His initial evaluation in the office revealed associated leukocytosis, tachycardia, and abnormal urinalysis. He was subsequently referred to the ED for further evaluation and management. His morbidities include Hypertension, Diabetes Mellitus type 2, Hypercholesterolemia, GERD, and Diverticulosis. Hospital Course Hospital Course: His initial diagnosis and management was for SIRS with left ureter stone with complicated UTI. He did respond to initial antibiotic coverage with Meropenem. His urine culture did grew urogenital wojciech with colonies over 100,000/ml. His initial leukocytosis did resolved. Patient subsequently developed diarrhea with recurrence of leukocytosis and diagnosis of C.difficile colitis. He was managed with oral Metronidazole that eventually was transition to oral vancomycin and IV Metronidazole coverage. His treatment was eventually changed to oral Vancomycin and patient reported diarrhea and nausea as well as abdominal pain did resolved. He will be discharged home today with outpatient arrangement for urology consultation regarding his ureter stone and hydronephrosis management. Physical Exam Vital Signs: Temp Pulse Resp BP Pulse Ox 99.2 F 83 18 118/73 99 10/24/17 15:48 10/24/17 15:48 10/24/17 15:48 10/24/17 15:48 10/24/17 15:48 Intake & Output 10/23/17 10/24/17 10/25/17 06:59 06:59 06:59 Intake Total 2560 2180 Output Total 3 Balance 2557 2180 Physical Exam: General appearance: PRESENT: no acute distress, well-developed, well-nourished Head exam: PRESENT: atraumatic, normocephalic Eye exam: PRESENT: conjunctiva pink, EOMI, PERRLA. ABSENT: scleral icterus Mouth exam: PRESENT: moist Respiratory exam: PRESENT: clear to auscultation lena Cardiovascular exam: PRESENT: RRR. ABSENT: diastolic murmur, rubs, systolic murmur GI/Abdominal exam: PRESENT: normal bowel sounds, soft. ABSENT: distended, guarding, tenderness, mass, organomegaly, rebound, Extremities exam: ABSENT: pedal edema Musculoskeletal exam: PRESENT: normal inspection Neurological exam: PRESENT: alert, awake, oriented to person, oriented to place , oriented to time, oriented to situation, CN II-XII grossly intact. ABSENT: motor sensory deficit Psychiatric exam: PRESENT: appropriate affect, normal mood. ABSENT: homicidal ideation, suicidal ideation Skin exam: PRESENT: dry, intact, warm. ABSENT: cyanosis, rash Results Laboratory Results: 10/24/17 04:29 10/24/17 04:29 10/24/17 10/24/17 04:29 04:29 WBC 8.5 RBC 4.56 Hgb 14.0 Hct 39.8 MCV 87 MCH 30.7 MCHC 35.3 RDW 12.5 Plt Count 273 Seg Neutrophils % 64.1 Lymphocytes % 23.1 Monocytes % 10.0 Eosinophils % 2.2 Basophils % 0.6 Absolute Neutrophils 5.4 Absolute Lymphocytes 2.0 Absolute Monocytes 0.8 Absolute Eosinophils 0.2 Absolute Basophils 0.1 Sodium 138.4 Potassium 3.9 Chloride 103 Carbon Dioxide 25 Anion Gap 10 BUN 11 Creatinine 1.12 Est GFR ( Amer) > 60 Est GFR (Non-Af Amer) > 60 Glucose 91 Calcium 9.1 Impressions: Limited or Localized CT 10/14/17 00:00 IMPRESSION: Large obstructing calculus at the level of the mid left ureter as noted above. There is a 2nd small ureteric calculus just proximal to the obstructing calculus. Small nonobstructing left renal calculi are identified. Other findings as noted above Abdomen Ultrasound 10/19/17 00:00 IMPRESSION: The hydronephrosis of the left kidney which was present on the previous CT scan. No other significant intra-abdominal abnormalities were identified. Other findings as noted above Qualifiers - * PATEINT BEING DISCHARGED WITH ANY OF THE FOLLOWING DIAGNOSIS?: No Plan Discharge Plan: D/C home today. Follow up in the office as instructed upon discharge.
[2017-10-24 17:37] VITALS: BP 108/74
== END 2017-10-24 18:10 | disposition home or self-care (01) | DRG 694 ==
LOC: ER 10:07 → EH 10:09 → 4N 23:52
PROVIDERS: ADMIT Internal Medicine Geriatric Medicine; ATTEND Internal Medicine Geriatric Medicine
DX: N13.2 Hydronephrosis with renal and ureteral calculous obstruction (principal); R65.10 Systemic inflammatory response syndrome (SIRS) of non-infectious origin without acute organ dysfunction; A04.71 Enterocolitis due to Clostridium difficile, recurrent; N39.0 Urinary tract infection, site not specified; I10 Essential (primary) hypertension; E78.5 Hyperlipidemia, unspecified; E11.9 Type 2 diabetes mellitus without complications; K21.9 Gastro-esophageal reflux disease without esophagitis; R10.9 Unspecified abdominal pain; Z79.84 Long term (current) use of oral hypoglycemic drugs; Z79.899 Other long term (current) drug therapy; Z87.891 Personal history of nicotine dependence
CPT/HCPCS: 36415; 76380; 76700; 80048; 80053; 81001; 82962; 85025; 87040; 87086; 87493; 93976; J1650; J1815; J2185; J2270; J2405; J3370; J3490; J7030

== ENCOUNTER → 2017-12-15 | Outpatient (CLI) | payer OTHER | LOC: OD 11:53 | PROVIDERS: ATTEND Internal Medicine Geriatric Medicine | DX: Z12.5 Encounter for screening for malignant neoplasm of prostate (principal) | CPT/HCPCS: 36415; 84153 ==

== ENCOUNTER → 2019-09-18 | Outpatient (CLI) | payer MEDICARE ==
--- NOTE | 2019-09-18 17:04 | RADIOLOGY REPORT (SQ) ---
EXAM DESCRIPTION: U/S ABDOMEN LIMITED W/O DOP COMPLETED DATE/TIME: 09/18/2019 4:52 pm REASON FOR STUDY: (R10.11)RIGHT UPPER QUADRANT PAIN R10.11 RIGHT UPPER QUADRANT PAIN COMPARISON: CT abdomen pelvis 10/14/2017 Abdominal ultrasound 10/19/2017 TECHNIQUE: Dynamic and static grayscale images acquired of the abdomen and recorded on PACS. Additio nal selected color Doppler and spectral images recorded. LIMITATIONS: Body habitus, midline bowel gas FINDINGS: PANCREAS: Not visualized due to midline bowel gas LIVER: Normal size, increased echogenicity from fatty infiltration or diffuse hepatocellular disease with focal sparing at the gallbladder fossa. No masses. No biliary ductal dilatation. LIVER VASCULATURE: Normal directional flow of the main portal vein and hepatic veins. GALLBLADDER: No stones. Normal wall thickness. No pericholecystic fluid. ULTRASOUND-DETECTED MIRELES'S SIGN: Negative. INTRAHEPATIC DUCTS AND COMMON DUCT: CBD and intrahepatic ducts normal caliber. No filling defects. D istal common duct not visualized due to duodenum gas INFERIOR VENA CAVA: Not well seen due to midline bowel gas AORTA: Not well seen due to midline bowel gas RIGHT KIDNEY: Normal size. Normal echogenicity. No solid or suspicious masses. No hydronephrosis. No calcifications. PERITONEAL AND RIGHT PLEURAL SPACE: No ascites or effusions. OTHER: No other significant findings. IMPRESSION: No gallstones, gallbladder wall thickening or pericholecystic fluid. Echogenic liver from fatty infiltration TECHNICAL DOCUMENTATION: JOB ID: [id number] [employer]- All Rights Reserved Reading location - IP/workstation name: [email or web address]
== END ==
LOC: RAD 16:11
PROVIDERS: ATTEND Internal Medicine Geriatric Medicine
DX: R10.11 Right upper quadrant pain (principal)
CPT/HCPCS: 76705